=== PATIENT | female | born 1955 | race Caucasian/White ===

== ENCOUNTER → 2017-11-28 15:05 | Outpatient (POV) | payer MEDICARE, SELFPAY ==
[2017-11-28 17:33] LABS: Ferritin 101 ng/mL (8-388)
[2017-11-30 08:23] LABS: Alpha-1-Antitrypsin 119 mg/dL (90-200); Hep A Ab, IgM Negative (Negative); Hep B Core Ab, Total Negative (Negative); Hepatitis B Core Antibody IgM Negative (Negative); Hepatitis B Surface Antigen Negative (Negative); Immunoglobulin A, Qn 465 mg/dL (87-352); Immunoglobulin G, Qn 1661 mg/dL (700-1600); Immunoglobulin M, Qn 450 mg/dL (26-217); Iron 142 ug/dL (27-139); Iron Saturation 49 % (15-55); UIBC 145 ug/dL (118-369)
[2017-12-01 06:25] LABS: Actin (Smooth Muscle) Antibody 23 Units (0-19)
[2017-12-01 06:26] LABS: Angiotensin Converting Enzyme 63 U/L (14-82); Deamidated Gliadin Abs, IgA 7 units (0-19); Deamidated Gliadin Abs, IgG 2 units (0-19); Endomysial IgA Antibody Negative (Negative); Hep A Ab, Total Positive (Negative); Hep B Surface Ab, Qual Non Reactive (.); Hepatitis C Antibody <0.1 s/co ratio (0.0-0.9); Liver-Kidney Microsomal Ab <1.0 Units (0.0-20.0); Tissue Transglutaminase IgA Ab <2 U/mL (0-3); Tissue Transglutaminase IgG Ab 2 U/mL (0-5)
[2017-12-01 15:24] LABS: Phenotype (PI) MZ (.)
[2017-12-02 06:28] LABS: Antinuclear Antibodies, IFA Negative (.)
[2017-12-02 10:27] LABS: Reticulin IgA Antibody Negative titer (Neg:<1:2.5)
[2017-12-13 06:04] LABS: Mitochondrial (M2) Antibody <20.0 Units (0.0-20.0)
== END ==
PROVIDERS: Visit Provider Nurse Practitioner Acute Care
DX: R94.5 Abnormal results of liver function studies (principal); R79.0 Abnormal level of blood mineral
CPT/HCPCS: 36415; 80074; 82104; 82164; 82728; 82784; 83516; 83550; 86038; 86255; 86256; 86376; 86704; 86706; 86708

== ENCOUNTER → 2018-01-16 11:29 | Outpatient (POV) | payer MEDICARE, SELFPAY | PROVIDERS: Visit Provider Nurse Practitioner Acute Care | DX: Z00.00 Encounter for general adult medical examination without abnormal findings (principal) ==

== ENCOUNTER → 2018-02-28 11:57 | Outpatient (CLI) | payer MEDICARE, SELFPAY ==
[2018-02-28 13:53] LABS: Basophils % 0.2 % (0.1-2.0); Eosinophils # 0.2 K/mm3 (0.0-0.4); Eosinophils % 2.5 % (0.1-12.0); Hemoglobin 13.5 g/dL (12.2-16.2); Lymphocytes # 1.2 K/mm3 (0.7-4.5); Mean Corpuscular Hemoglobin 32.4 pg (27.0-31.2); Mean Corpuscular Volume 101.3 fl (81-99); Mean Platelet Volume 10.2 fl (7.4-10.4); Monocytes # 0.8 K/mm3 (0.1-1.0); Monocytes % 8.5 % (1.7-9.3); Neutrophils % 75.8 % (37.0-80.0); Platelet Count 54 K/mm3 (142-424); Red Blood Count 4.15 M/mm3 (4.20-5.40); Red Cell Distribution Width 16.2 % (11.5-17.5); White Blood Count 9.2 K/mm3 (4.8-10.8)
== END ==
PROVIDERS: PCP Family Medicine; Visit Provider Family Medicine
DX: D69.6 Thrombocytopenia, unspecified (principal)
CPT/HCPCS: 36415; 85025

== ENCOUNTER → 2018-03-06 11:04 | Outpatient (CLI) | payer MEDICARE, SELFPAY ==
[2018-03-06 11:29] LABS: Basophils # 0.1 K/mm3 (0-0.2); Basophils % 0.8 % (0.1-2.0); Eosinophils # 0.3 K/mm3 (0.0-0.4); Eosinophils % 4.3 % (0.1-12.0); Hematocrit 43.1 % (37.0-47.0); Hemoglobin 13.7 g/dL (12.2-16.2); Lymphocytes # 1.9 K/mm3 (0.7-4.5); Lymphocytes % 29.9 K/mm3 (10-50); Mean Corpuscular HGB Conc 31.7 g/dL (31.8-35.4); Mean Corpuscular Hemoglobin 32.6 pg (27.0-31.2); Mean Corpuscular Volume 102.7 fl (81-99); Mean Platelet Volume 11.6 fl (7.4-10.4); Monocytes # 0.5 K/mm3 (0.1-1.0); Monocytes % 6.9 % (1.7-9.3); Neutrophils # 3.8 K/mm3 (1.8-7.8); Neutrophils % 58.1 % (37.0-80.0); Red Cell Distribution Width 15.9 % (11.5-17.5); White Blood Count 6.5 K/mm3 (4.8-10.8)
[2018-03-06 11:30] LABS: Prothrombin Time 11.3 seconds (9.4-11.8)
[2018-03-06 12:22] LABS: Alanine Aminotransferase 97 U/L (12-78); Albumin Level 3.1 gm/dL (3.4-5.0); Albumin/Globulin Ratio 0.9 (1.1-1.8); Alkaline Phosphatase 168 U/L (46-116); Anion Gap 8.6 mEq/L (5-15); Aspartate Amino Transferase 84 U/L (15-37); Blood Urea Nitrogen 20 mg/dL (7-18); Calcium 8.5 mg/dL (8.5-10.1); Carbon Dioxide 30 mmol/L (21.0-32.0); Chloride 108 mmol/L (98-107); Estimated Glomerular Filt Rate 63 ml/min (>60); GFR (African American) 77 ML/MIN (>60); Globulin 3.6 gm/dl (1.3-3.2); Glucose 127 mg/dL (74-106); Potassium 3.6 mmoL/L (3.5-5.1); Sodium 143 mmol/L (136-145); Total Protein,Serum 6.7 gm/dL (6.4-8.2)
[2018-03-06 12:31] LABS: Platelet Count 36 K/mm3 (142-424)
== END ==
PROVIDERS: PCP Family Medicine; Visit Provider Nurse Practitioner Acute Care
DX: K74.60 Unspecified cirrhosis of liver (principal); R94.5 Abnormal results of liver function studies
CPT/HCPCS: 36415; 80053; 85025; 85610

== ENCOUNTER → 2018-03-16 10:39 | Outpatient (CLI) | payer MEDICARE, SELFPAY ==
[2018-03-16 11:26] LABS: Basophils % 0.3 % (0.1-2.0); Eosinophils # 0.1 K/mm3 (0.0-0.4); Eosinophils % 1.7 % (0.1-12.0); Hematocrit 42.5 % (37.0-47.0); Hemoglobin 13.7 g/dL (12.2-16.2); Lymphocytes # 1.1 K/mm3 (0.7-4.5); Lymphocytes % 16.5 K/mm3 (10-50); Mean Corpuscular HGB Conc 32.2 g/dL (31.8-35.4); Mean Corpuscular Volume 102.6 fl (81-99); Mean Platelet Volume 10.6 fl (7.4-10.4); Monocytes # 0.5 K/mm3 (0.1-1.0); Monocytes % 7.7 % (1.7-9.3); Neutrophils # 4.7 K/mm3 (1.8-7.8); Neutrophils % 73.8 % (37.0-80.0); Red Blood Count 4.14 M/mm3 (4.20-5.40); Red Cell Distribution Width 15.9 % (11.5-17.5); White Blood Count 6.4 K/mm3 (4.8-10.8)
[2018-03-16 13:18] LABS: Alanine Aminotransferase 91 U/L (12-78); Albumin Level 3.2 gm/dL (3.4-5.0); Albumin/Globulin Ratio 0.9 (1.1-1.8); Alkaline Phosphatase 158 U/L (46-116); Anion Gap 13.3 mEq/L (5-15); Aspartate Amino Transferase 74 U/L (15-37); Bilirubin,Total 0.8 mg/dL (0.2-1.0); Blood Urea Nitrogen 13 mg/dL (7-18); Calcium 8.8 mg/dL (8.5-10.1); Carbon Dioxide 26 mmol/L (21.0-32.0); Chloride 111 mmol/L (98-107); Creatinine,Serum 0.85 mg/dL (0.55-1.02); Estimated Glomerular Filt Rate 68 ml/min (>60); GFR (African American) 82 ML/MIN (>60); Globulin 3.6 gm/dl (1.3-3.2); Glucose 102 mg/dL (74-106); Potassium 4.3 mmoL/L (3.5-5.1); Sodium 146 mmol/L (136-145); Total Protein,Serum 6.8 gm/dL (6.4-8.2)
[2018-03-16 14:11] LABS: Platelet Count 49 K/mm3 (142-424)
== END ==
PROVIDERS: PCP Family Medicine; Visit Provider Nurse Practitioner Acute Care
DX: R94.5 Abnormal results of liver function studies (principal)
CPT/HCPCS: 36415; 80053; 85025

== ENCOUNTER → 2018-04-25 07:52 | Outpatient (CLI) | payer MEDICARE, SELFPAY ==
--- NOTE | 2018-04-25 08:00 | US_ITS ---
US liver HISTORY: ITS.REASON: LIVER TRANSPLANT EVALUATION ORDERING PHYSICIAN: Dane Baker PATIENT AGE: 62 years COMPARISON: None FINDINGS: PANCREAS:Pancreas is poorly demonstrated LIVER:There is heterogeneous somewhat increased echogenicity of the liver with poor through transmission of sound. The liver margin is irregular with cirrhosis. No focal liver lesions are demonstrated. There is turbulent blood flow in the region of the portal vein which could represent a recanalized portal vein or collaterals in the region of the portal vein. An enlarged portal vein is not identified. RIGHT KIDNEY:Unremarkable. Normal size and echogenicity. No hydronephrosis GALLBLADDER:No gallstones, gallbladder wall thickening, pericholecystic fluid, or biliary dilatation. IMPRESSION: 1. Cirrhotic appearing liver. 2. Turbulent blood flow within the portal vein which could be due to prior portal vein thrombosis with recanalization or collateral vessels in region of the portal vein.
== END ==
PROVIDERS: PCP Family Medicine; Visit Provider Transplant Surgery
DX: Z94.4 Liver transplant status (principal)
CPT/HCPCS: 76705

== ENCOUNTER → 2018-09-25 08:17 | Outpatient (CLI) | payer MEDICARE, SELFPAY ==
--- NOTE | 2018-09-25 08:26 | US_ITS ---
US abdomen complete HISTORY: ITS.REASON: CIRRHOSIS ORDERING PHYSICIAN: Tyron Bee PATIENT AGE: 62 years COMPARISON: Previous ultrasound abdomen from March [address] abdomen March 2012 FINDINGS: Liver. Cirrhotic appearing liver. Slight increased coarse echogenicity slight decreased through transmission. Slight micronodular character to the margin. No focal mass lesion evident. The portal vein appears normal caliber. Suggestion of slight turbulent flow but not retrograde. Gallbladder. Minimal sludge. No gallstones. Normal wall thickness. Normal size gallbladder. Common duct. A measures up to 4 mm at hilum of the liver. No ductal dilatation Pancreas. Not well delineated. Slight heterogeneous echogenicity but but no discrete focal mass. No pancreatic ductal dilatation evident Kidneys Right kidney measures 10.1 cm in length left kidney 11.1 cm in length. Perhaps minor cortical thinning perhaps bilaterally but no hydronephrosis nor mass in either kidney. Spleen enlarged, generous enlarged. Up to 16 maximum length x 15 cm transverse x 9 cm AP. IMPRESSION 1. Cirrhotic liver again seen similar to March 2018 ultrasound. No focal liver lesions evident Although portal vein not dilated , there does appear to be some turbulent flow, reflecting of portal hypertension with change underlying portal venous flow dynamics.-This seen on previous March 2018 study as well. 2.. Splenomegaly. Spleen measuring 16 cm length.
== END ==
PROVIDERS: PCP Family Medicine; Visit Provider Nurse Practitioner Acute Care
DX: K74.60 Unspecified cirrhosis of liver (principal)
CPT/HCPCS: 76700

== ENCOUNTER → 2019-04-13 16:20 | Outpatient (CLI) | payer MEDICARE, SELFPAY | PROVIDERS: Visit Provider Family Medicine | DX: N39.0 Urinary tract infection, site not specified (principal) | CPT/HCPCS: 87086 ==

== ENCOUNTER → 2019-04-30 08:43 | Outpatient (CLI) | payer MEDICARE, SELFPAY ==
--- NOTE | 2019-04-30 08:55 | US_ITS ---
PROCEDURE: US ABDOMEN LIMITED CLINICAL INDICATION: CCIRRHOSIS COMPARISON: [facility] US abdomen complete from 09/25/2018 FINDINGS: PANCREAS: Pancreas is poorly demonstrated. LIVER: The liver has a cirrhotic appearance. Blood flow in the portal vein appears turbulent. The portal vein does not appear dilated. No focal liver lesions demonstrated. RIGHT KIDNEY: Unremarkable. Normal size and echogenicity. No hydronephrosis GALLBLADDER: No gallstones, gallbladder wall thickening, pericholecystic fluid, or biliary dilatation. IMPRESSION: Overall no change in the cirrhotic appearance of the liver with turbulent flow in the portal vein Dictated by: Edgar Cortés MD 04/30/2019 18:30 Electronically signed by Edgar Cortés MD in [place] 04/30/2019 18:30
== END ==
PROVIDERS: PCP Family Medicine; Visit Provider Family Medicine
DX: K74.69 Other cirrhosis of liver (principal)
CPT/HCPCS: 76705

== ENCOUNTER → 2019-06-22 15:29 | Outpatient (CLI) | payer MEDICARE, SELFPAY ==
--- NOTE | 2019-06-22 15:33 | XR_ITS ---
PROCEDURE: XR CHEST 2V CLINICAL HISTORY: BRONCHITIS COMPARISON: CXR CHEST(2 VIEWS-NOT PORTABLE) from 03/27/2013 FINDINGS: The cardiomediastinal silhouette and pulmonary vascularity are within normal limits. There is a small patchy indistinct density overlying the caudal aspect of the right hilum. This was not clearly present on the prior study. There are strands of increased density on the lateral view which are probably in the right middle lobe. The remainder of the lung abarca are clear without pleural effusion or pneumothorax. No acute bony abnormalities. IMPRESSION: Linear atelectasis or scarring in the right middle lobe. Indistinct density overlying the right hilum. Suggest nonemergent CT chest with intravenous contrast. Dictated by: Rufus Roque 06/22/2019 15:46 Electronically signed by Rufus Roque in [place] 06/22/2019 15:46
== END ==
PROVIDERS: PCP Family Medicine; Visit Provider Physician Assistant
DX: J45.909 Unspecified asthma, uncomplicated (principal)
CPT/HCPCS: 71046

== ENCOUNTER → 2019-10-31 07:56 | Outpatient (CLI) | payer MEDICARE, SELFPAY ==
--- NOTE | 2019-10-31 08:11 | US_ITS ---
PROCEDURE: US ABDOMEN LIMITED CLINICAL INDICATION: CIRRHOSIS Non alcoholic steatohepatitis COMPARISON: US ABDOMEN LIMITED from 04/30/2019 FINDINGS: PANCREAS: Unremarkable. No obvious mass or abnormal fluid collection. No ductal dilatation LIVER: The liver has a cirrhotic appearance with mild prominence of the left hepatic lobe and irregular margins. There is appropriate direction of blood flow within a non dilated portal vein. Portal blood flow is appropriate but is somewhat turbulent within the liver. The portal vein tapers as it enters the hilum of the liver. RIGHT KIDNEY: There is increased echogenicity in the mid aspect of the right kidney which could be due to a stone measuring [address] may confirm. GALLBLADDER: No gallstones, gallbladder wall thickening, pericholecystic fluid, or biliary dilatation. The spleen is enlarged at 16 cm IMPRESSION: 1. Cirrhotic appearing liver. Portal vein tapers within the liver with some turbulent flow and there is splenomegaly consistent with portal hypertension. There is appropriate direction of blood flow within the main portal vein. 2. Possible right nephrolithiasis. Dictated by: Edgar Cortés MD 10/31/2019 19:36 Electronically signed by Edgar Cortés MD in [place] 10/31/2019 19:36
== END ==
PROVIDERS: PCP Family Medicine; Visit Provider Nurse Practitioner Acute Care
DX: K74.60 Unspecified cirrhosis of liver (principal)
CPT/HCPCS: 76705

== ENCOUNTER → 2020-04-25 09:43 | Outpatient (CLI) | payer MEDICARE, SELFPAY ==
--- NOTE | 2020-04-25 09:47 | MM_ITS ---
PROCEDURE: MM DIG SCREENING MAMM BI W/CAD Digital Breast Tomosynthesis Included CLINICAL INDICATION: SCREENING There is no personal or family history of breast cancer. COMPARISON: MG DIGMAMMS MAMMOGRAM SCREEN-FORMULA MIXER N/C from 04/02/2010 MG DMSB DIGITAL MAMM-SCREEN BILATERAL from 05/03/2012 MG DMSB DIG MAMM-SCREEN YUSUF W/CAD from 07/27/2016 TECHNIQUE: Standard CC and MLO images and 3D Tomosynthesis was obtained. R2 CAD reviewed. FINDINGS: Mild diffuse fibroglandular densities are seen in both breasts. There are a couple of benign-appearing calcifications in each breast. There is no suspicious lesion and no suspicious microcalcifications. IMPRESSION: Fibrofatty parenchyma with no suspicious lesions seen BI-RAD Category: 2 Benign Finding(s) FOLLOW-UP: 1YR 1 Year Follow-up (A letter has been sent to the patient regarding results of the study.) Dictated by: Dr. Hiro Cruz MD 04/25/2020 12:59 Dr. Hiro Cruz MD in [place] 04/25/2020 12:59
== END ==
PROVIDERS: PCP Family Medicine; Visit Provider Physician Assistant
DX: Z12.31 Encounter for screening mammogram for malignant neoplasm of breast (principal)
CPT/HCPCS: 77063; 77067

== ENCOUNTER → 2020-06-04 08:44 | Outpatient (CLI) | payer MEDICARE, SELFPAY ==
--- NOTE | 2020-06-04 08:48 | US_ITS ---
PROCEDURE: US LIVER CLINICAL INDICATION: CIRRHOSIS COMPARISON: US US ABDOMEN LIMITED from 04/30/2019 FINDINGS: PANCREAS: Pancreas is not well delineated due to overlying bowel gas. CT or MRI without and with contrast with pancreatic protocol may provide further evaluation if clinically desired. LIVER: There is coarse echogenicity of the liver which has a lobular contour with irregularity of the liver surface suggesting cirrhosis. Common bile duct is normal at 3 mm. The portal vein is not dilated with appropriate direction of blood flow. RIGHT KIDNEY: There is moderate right hydronephrosis GALLBLADDER: No gallstones, gallbladder wall thickening, pericholecystic fluid, or biliary dilatation. IMPRESSION: Cirrhotic appearing liver. Moderate right hydronephrosis Dictated by: Edgar Cortés MD 06/04/2020 19:14 Edgar Cortés MD in [place] 06/04/2020 19:14
== END ==
PROVIDERS: PCP Family Medicine; Visit Provider Nurse Practitioner Acute Care
DX: K74.60 Unspecified cirrhosis of liver (principal)
CPT/HCPCS: 76705

== ENCOUNTER → 2020-07-07 10:14 | Outpatient (CLI) | payer MEDICARE, SELFPAY ==
--- NOTE | 2020-07-07 10:43 | XR_ITS ---
PROCEDURE: XR CHEST PORTABLE CLINICAL HISTORY: COVID TESTING Cough and shortness of breath COMPARISON: CR CXR CHEST(2 VIEWS-NOT PORTABLE) from 03/27/2013 CR XR CHEST 2V from 06/22/2019 FINDINGS: The cardiomediastinal silhouette and pulmonary vascularity are within normal limits. The lungs are clear without infiltrates, suspicious nodules, or pleural effusions. No acute bony abnormalities. IMPRESSION: No acute findings. Dictated by: Edgar Cortés MD 07/07/2020 14:34 Edgar Cortés MD in [place] 07/07/2020 14:34
[2020-07-07 10:54] LABS: Basophils % 0.2 % (0.1-2.0); Eosinophils % 0.1 % (0.1-12.0); Hematocrit 43.7 % (37.0-47.0); Hemoglobin 14.2 g/dL (12.2-16.2); Lymphocytes # 1.2 K/mm3 (0.7-4.5); Mean Corpuscular HGB Conc 32.4 g/dL (31.8-35.4); Mean Corpuscular Hemoglobin 34.3 pg (27.0-31.2); Mean Corpuscular Volume 105.7 fl (81-99); Mean Platelet Volume 8.6 fl (7.4-10.4); Monocytes # 0.5 K/mm3 (0.1-1.0); Monocytes % 8.6 % (1.7-9.3); Neutrophils # 4.5 K/mm3 (1.8-7.8); Platelet Count 130 K/mm3 (142-424); Red Blood Count 4.14 M/mm3 (4.20-5.40); Red Cell Distribution Width 15.7 % (11.5-17.5); White Blood Count 6.3 K/mm3 (4.8-10.8)
[2020-07-07 11:13] LABS: INR 1.23 (0.9-1.1); Prothrombin Time 13.4 seconds (9.4-11.8)
[2020-07-07 12:35] LABS: Chloride 109 mmol/L (98-107); Sodium 139 mmol/L (136-145)
[2020-07-07 12:36] LABS: Potassium 3.4 mmoL/L (3.5-5.1)
[2020-07-07 12:38] LABS: Alanine Aminotransferase 22 U/L (12-78); Albumin Level 3.4 g/dl (3.5-5.0); Albumin/Globulin Ratio 0.9 (1.1-1.8); Alkaline Phosphatase 202 U/L (38-126); Anion Gap 9.4 mEq/L (5-15); Aspartate Amino Transferase 53 U/L (14-36); Bilirubin,Total 2.9 mg/dl (0.2-1.3); Blood Urea Nitrogen 9 mg/dl (7-17); Calcium 8.8 mg/dl (8.4-10.2); Carbon Dioxide 24 mmol/L (22.0-30.0); Estimated Glomerular Filt Rate 72 ml/min (>60); GFR (African American) 87 ML/MIN (>60); Globulin 3.8 g/dL (1.3-3.2); Glucose 102 mg/dl (74-100); Iron 124 ug/dL (37-170); Total Protein,Serum 7.2 g/dl (6.3-8.2)
[2020-07-07 12:48] LABS: Total Iron Binding Capacity 241 ug/dL (265-497)
[2020-07-07 13:14] LABS: Ferritin 103 ng/ml (11.1-264)
[2020-07-09 08:28] LABS: AFP, Tumor Marker 6.7 ng/mL (0.0-8.3)
== END ==
PROVIDERS: Nurse Practitioner Acute Care; PCP Family Medicine; Visit Provider Physician Assistant
DX: Z20.822 Contact with and (suspected) exposure to COVID-19 (principal); U07.1 COVID-19; R93.89 Abnormal findings on diagnostic imaging of other specified body structures; K74.60 Unspecified cirrhosis of liver; K76.0 Fatty (change of) liver, not elsewhere classified
CPT/HCPCS: 36415; 71045; 80053; 82105; 82565; 82728; 83540; 83550; 84520; 85025; 85610; U0003

== ENCOUNTER 2020-07-10 08:22 | Outpatient (CLI) | payer MEDICARE, SELFPAY ==
[2020-07-10] VITALS (9 sets, daily range): BP systolic 94–111; BP diastolic 54–71; PULSE 82–96; RESP 12–18; TEMP 36.6–36.8; O2SAT 94–97
--- NOTE | 2020-07-10 10:05 | PC.NURSE ---
Infusion complete at this time. Pt tolerated well.
== END 2020-07-10 11:14 | disposition home or self-care (01) ==
PROVIDERS: PCP Family Medicine; Visit Provider Family Medicine
DX: U07.1 COVID-19 (principal)
CPT/HCPCS: 96365

== ENCOUNTER → 2020-08-27 14:25 | Outpatient (CLI) | payer MEDICARE, SELFPAY ==
[2020-08-27 18:18] LABS: Coronavirus 19 IgG Antibody Positive (Negative)
[2020-08-27 18:21] LABS: Coronavirus 19 IgM Antibody Positive (Negative)
== END ==
PROVIDERS: Visit Provider Internal Medicine Gastroenterology
DX: Z01.818 Encounter for other preprocedural examination (principal); Z20.822 Contact with and (suspected) exposure to COVID-19; Z86.16 Personal history of COVID-19; Z13.810 Encounter for screening for upper gastrointestinal disorder
CPT/HCPCS: 36415; 86328

== ENCOUNTER 2020-08-29 07:50 | Day surgery (SDC) | payer MEDICARE, SELFPAY ==
[2020-08-21 09:45] VITALS: BMI 30.1
[2020-08-29] VITALS (8 sets, daily range): BP systolic 111–126; BP diastolic 65–73; PULSE 75–90; RESP 18; TEMP 36.2–36.9; O2SAT 95–98
--- NOTE | 2020-08-29 08:36 | P.PN_ITS ---
[facility] Anesthesia Checklist - Patient Identification Patient Identification: Verbal (Name & ) - Structural Data Planned Operative Procedure/s: egd Consent for Planned Operative Procedure(s) Verified: Yes Verified Documents: Surgical Consent - Additional verifications Anesthesia Reactions: No - Cardiovascular Assessment Heart Sounds: S1 & S2 Pulse Rhythm: Regular - Airway Assessment C-Spine Mobility Assessed: Yes TMJ Mobility Assessed: Yes Dentition: Good Dentition - Neurological Assessment Level of Consciousness: Awake - Anesthesia Plan Anesthesia Risk discussed: Yes ASA Class: II Anesthesia Type: MAC [facility] History I have reviewed the patient's past medical history: Yes Medical History: Reports:: Depression, Hyperlipidemia, Lung Disease (ASTHMA) Denies:: Cancer, Diabetes Mellitus Type 1, Diabetes Mellitus Type 2, Internal Pacemaker, MRSA, Seizures *Have you ever received a pneumonia vaccine?: Yes *Have you received a flu vaccine this season?: Yes Other Medical History: Reports: Other (cirrhosis) Anesthesia experience/problems:: none Laterality Cases: Left: Arthroscopy Shoulder Other Surgeries: Yes: Hysterectomy-Total, Sinus Surgery. No: Pacemaker Amputation: No Fractures: No - *Social History Last grade of school completed: 11th or 12th Smoking Status: Never smoker Alcohol Intake: never Substance Use Type: denies use *Occupational Status:: disabled Housing: house Household Members: none *Travel in the last 8 weeks: None - Psychiatric History Pschychiatric History:: Reports:: Depression Family Hx:: No significant family history
--- NOTE | 2020-08-29 08:48 | HMH.PROC ---
[facility] Procedure Note Procedure Note:: Upper Endoscopy Procedure Report: Esophagogastroduodenoscopy with cold biopsies and APC ablation/coagulation Endoscopost: Sunday De Jesus II, MD Referring Physician: Iftikhar Aguirre MD/GORGE Arana Date of Procedure: August 29, 2020 Equipment: Olympus GIF 180 standard upper endoscope Sedation: MAC sedation Indications: Mrs. Mackay is a 64-year-old female with a history of Villalobos and cirrhosis. The patient had an EGD in January 2018 and again in February 2019 for her cirrhosis. She does have very small fundic varices in the stomach and very small grade 0?1 esophageal varices but no significant signs of portal hypertension and no portal gastropathy or GAVE. The patient reports no heartburn, reflux or dysphagia. She reports no hematemesis or melena. She has had no increased abdominal girth. Her MELD score has been stable. I do not have the results of any recent blood work. Procedure: Prior to the procedure, a history and physical exam was performed, and patient's medications and allergies were reviewed. The risks, benefits and alternatives of the sedation and procedure were discussed with the patient. All questions were answered and informed consent was obtained. The patient was brought to the procedure room. Patient identification and proposed procedure were verified by the physician and the nurse. The patient was placed in a left lateral decubitus position and the scope was passed under direct vision. Throughout the procedure, the patient's blood pressure, pulse, and oxygen saturations were monitored continuously. The upper GI endoscopy was accomplished without difficulty. The patient tolerated the procedure well. Findings: The scope was passed directly into the upper esophagus and advanced to the third portion of the duodenum. The post bulbar duodenum was normal with normal mucosa and conniventes. Within the duodenal bulb were some duodenal angiodysplasias/AVMs with some oozing of bright red blood. These were washed. Because of their active oozing, these were ablated/coagulated using APC (argon plasma) coagulation. The scope was withdrawn through a normal pylorus into the stomach. There was some mild reactive gastropathy of the antrum and body. The remainder of the antrum, body and fundus of the stomach were grossly normal. Upon retroflexion there was a single gastric varix in the fundus and a very small sliding 1 to 2 cm hiatal hernia. The scope was then withdrawn into the esophagus. There was 2 short tongues of salmon-colored mucosa that were biopsied to rule out intestinal metaplasia. There were very small grade 0-1 esophageal varices. There was no evidence of reflux esophagitis or strictures. The remainder of the esophageal mucosa was normal. Impression: 1. Very small grade 1 esophageal varices and small fundic varix (gastric varix) 2. 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 Duodenal angiodysplasias/AVMs with some active heme of duodenal bulb status post APC ablation 4. Mild reactive gastropathy of antrum Plan: There were no significant changes towards portal hypertension and no portal gastropathy. The patient's hepatic compensation is stable and has a stable MELD score. I would like for her to have hemoglobin/hematocrit and iron studies based upon the heme identified in the duodenal bulb. I will discuss the findings with patient and family and follow-up the biopsies.
--- NOTE | 2020-08-29 09:23 | SUR.PHASEII ---
ORDERS REC'D TO PERFORM FERRITIN AND IRON, TIBC BLOOD WORK PER DR NUNO. LAB NOTIFIED AND PT NOTIFIED, VERBALIZED UNDERSTANDING.
[2020-08-29 09:47] LABS: Iron 93 ug/dL (37-170)
[2020-08-29 10:01] LABS: Total Iron Binding Capacity 228 ug/dL (265-497)
[2020-08-29 10:30] LABS: Ferritin 86.8 ng/ml (11.1-264)
== END 2020-08-29 09:59 | disposition home or self-care (01) ==
PROVIDERS: PCP Family Medicine; Visit Provider Internal Medicine Gastroenterology
PROC: 0DJ08ZZ Inspection of Upper Intestinal Tract, Via Natural or Artificial Opening Endoscopic (ICD-10-PCS; CPT 43235; principal; 2020-08-29 09:00)
DX: I86.4 Gastric varices (principal); K74.60 Unspecified cirrhosis of liver; I85.00 Esophageal varices without bleeding; K21.9 Gastro-esophageal reflux disease without esophagitis; K22.9 Disease of esophagus, unspecified; K44.9 Diaphragmatic hernia without obstruction or gangrene; K31.9 Disease of stomach and duodenum, unspecified; K55.21 Angiodysplasia of colon with hemorrhage; K75.81 Nonalcoholic steatohepatitis (NASH); I10 Essential (primary) hypertension; J45.909 Unspecified asthma, uncomplicated; F32.9 Major depressive disorder, single episode, unspecified
CPT/HCPCS: 43239; 43270; 36415; 82728; 83540; 83550; 88305; C2618

== ENCOUNTER → 2020-09-03 13:46 | Outpatient (CLI) | payer MEDICARE, SELFPAY ==
--- NOTE | 2020-09-03 13:55 | CT_ITS ---
PROCEDURE: CT ABDOMEN PELVIS WO CON CLINICAL INDICATION: HYDRONEPHROSIS Right sided hydronephrosis, abnormal ultrasound COMPARISON: No exams were available for comparison TECHNIQUE: Axial images obtained with sagittal and coronal reformats. All CT scans at the facility use one or more dose reduction, viz: automated exposure control, ma/kV adjustment per patient size (including targeted exams where dose is matched to indication, i.e. head), or iterative reconstruction technique. FINDINGS: LOWER THORAX: No acute finding ABDOMEN & PELVIS: Cirrhotic appearance of the liver with heterogeneous density, shrunken appearing liver with irregular margins. No focal liver lesion evident on this unenhanced exam. The spleen is enlarged at 16 cm with prominent perisplenic varices. Nga renal varices noted on the left.. Lobular soft tissue density in the suprarenal region on the left measuring 3.5 cm and may represent a large varix. Enhanced CT may confirm. Cannot exclude adrenal enlargement on the left. Right adrenal gland has an unremarkable appearance . Small gallstone is present. There is some minimal calcification in the uncinate process of the pancreas. There is moderate to severe right hydronephrosis secondary to a 12 mm stone at the right ureteropelvic junction. At least 2 other small stones are present on the right in the lower pole at 2 and 3 mm. No evidence of appendicitis or diverticulitis. There is mild lumbar curvature convex left. Degenerative changes are present in the lumbar spine. IMPRESSION: 1. 12 mm right ureteropelvic junction stone with moderate to severe right-sided hydronephrosis and right nephrolithiasis 2. Cirrhotic appearance of the liver with splenomegaly and extensive abdominal and retroperitoneal varices consistent with portal hypertension. 3. Cholelithiasis. 4. Punctate calcification in the head of the pancreas which may be seen with prior pancreatitis Dictated by: Edgar Cortés MD 09/04/2020 10:24 Edgar Cortés MD in [place] 09/04/2020 10:24
== END ==
PROVIDERS: PCP Family Medicine; Visit Provider Family Medicine
DX: N13.30 Unspecified hydronephrosis (principal)
CPT/HCPCS: 74176

== ENCOUNTER → 2020-09-11 10:24 | Outpatient (CLI) | payer MEDICARE, SELFPAY ==
[2020-09-11 11:38] LABS: INR 1.11 (0.9-1.1)
[2020-09-11 11:39] LABS: Activated Partial Thrombo Time 28.7 seconds (22.8-30.6)
[2020-09-11 12:56] LABS: Coronavirus 19 IgG Antibody Positive (Negative)
[2020-09-11 12:57] LABS: Coronavirus 19 IgM Antibody Positive (Negative)
== END ==
PROVIDERS: Family Medicine; Visit Provider Urology
DX: N20.0 Calculus of kidney (principal); Z01.818 Encounter for other preprocedural examination; Z20.822 Contact with and (suspected) exposure to COVID-19; Z86.16 Personal history of COVID-19; R71.8 Other abnormality of red blood cells; Z51.81 Encounter for therapeutic drug level monitoring
CPT/HCPCS: 36415; 85610; 85730; 86328

== ENCOUNTER 2020-09-12 10:32 | Day surgery (SDC) | payer MEDICARE, SELFPAY ==
[2020-09-09 14:33] VITALS: BMI 27.6
[2020-09-12] VITALS (10 sets, daily range): BP systolic 103–121; BP diastolic 56–78; PULSE 56–70; RESP 11–18; TEMP 36.2–36.6; O2SAT 92–97
[2020-09-12 08:03] LABS: Basophils % 0.6 % (0.1-2.0); Eosinophils % 0.6 % (0.1-12.0); Hematocrit 39.5 % (37.0-47.0); Hemoglobin 12.3 g/dL (12.2-16.2); Lymphocytes # 1.4 K/mm3 (0.7-4.5); Lymphocytes % 24.1 % (10-50); Mean Corpuscular HGB Conc 31.2 g/dL (31.8-35.4); Mean Corpuscular Hemoglobin 33.7 pg (27.0-31.2); Mean Platelet Volume 8.8 fl (7.4-10.4); Monocytes # 0.6 K/mm3 (0.1-1.0); Monocytes % 9.3 % (1.7-9.3); Neutrophils # 3.9 K/mm3 (1.8-7.8); Neutrophils % 65.5 % (37.0-80.0); Platelet Count 143 K/mm3 (142-424); Red Blood Count 3.66 M/mm3 (4.20-5.40); Red Cell Distribution Width 15.4 % (11.5-17.5); White Blood Count 5.9 K/mm3 (4.8-10.8)
[2020-09-12 11:22] LABS: Chloride 116 mmol/L (98-107); Potassium 4.1 mmoL/L (3.5-5.1); Sodium 145 mmol/L (136-145)
[2020-09-12 11:25] LABS: Anion Gap 8.1 mEq/L (5-15); Blood Urea Nitrogen 11 mg/dl (7-17); Carbon Dioxide 25 mmol/L (22.0-30.0); Creatinine Clearance Estimated 63 mL/min (50-200); Estimated Glomerular Filt Rate 56 ml/min (>60); GFR (African American) 68 ML/MIN (>60); Glucose 97 mg/dl (74-100)
--- NOTE | 2020-09-12 12:42 | P.PN_ITS ---
[facility] Anesthesia Checklist - Patient Identification Patient Identification: Arm Band - Structural Data Admitted From: Home Planned Operative Procedure/s: Cystoscopy Consent for Planned Operative Procedure(s) Verified: Yes - Additional verifications Anesthesia Reactions: No Hx Blood Transfusions: No Blood Transfusion Reaction: No - Airway Assessment C-Spine Mobility Assessed: Yes TMJ Mobility Assessed: Yes Dentition: Good Dentition - Neurological Assessment Level of Consciousness: Awake Hx Seizures: No Numbness or tingling in extremities: No - Anesthesia Plan Anesthesia Risk discussed: Yes Anesthesia Plan: Verified ASA Class: III Anesthesia Type: General [facility] History I have reviewed the patient's past medical history: Yes Medical History: Reports:: Asthma, Depression, Hyperlipidemia, Lung Disease Denies:: Cancer, Diabetes Mellitus Type 1, Diabetes Mellitus Type 2, Internal Pacemaker, MRSA, Seizures *Have you ever received a pneumonia vaccine?: Yes *Have you received a flu vaccine this season?: Yes Other Medical History: Reports: Arthritis, Cataracts, Sinus Problems, Thyroid Disease, Other. Denies: Blood Transfusion Reaction Anesthesia experience/problems:: None Laterality Cases: Left: Arthroscopy Shoulder Other Surgeries: Yes: No Previous Surgery, Colonoscopy, Hernia Repair, Hysterectomy-Total, Hysterectomy-Partial, Sinus Surgery. No: Pacemaker Amputation: No Fractures: No - *Social History Last grade of school completed: High school graduate Smoking Status: Never smoker Alcohol Intake: never Substance Use Type: denies use *Occupational Status:: retired Housing: house Household Members: none *Travel in the last 8 weeks: None - Psychiatric History Pschychiatric History:: Reports:: Depression Family Hx:: Stroke
--- NOTE | 2020-09-12 12:55 | P.PN_ITS ---
[facility] Anesthesia Record Part I Intake, IV Amount: 700 Estimated blood loss (mL): 0 Urine output (mL): 0 Blood Pressure: 103/56 SaO2: 93 Pulse Rate: 64 Respiratory Rate: 11 Temperature: 97.2 F Patient is:: Drowsy Stable to PACU at:: 12:53
--- NOTE | 2020-09-12 14:12 | XR_ITS ---
PROCEDURE: XR KUB CLINICAL INDICATION: CYSTO WITH STENT PLACEMENT IN OR COMPARISON: CT CT ABDOMEN PELVIS WO CON from 09/03/2020 FINDINGS: Fluoroscopy time: 1 minutes and 20 seconds. C-arm images submitted demonstrating right ureteral stent placement with the proximal aspect curved in the right upper quadrant and the distal aspect in the region of the urinary bladder. IMPRESSION: Status post stent placement on the right with C-arm guidance Dictated by: Edgar Cortés MD 09/12/2020 15:42 Edgar Cortés MD in [place] 09/12/2020 15:42
--- NOTE | 2020-09-12 15:28 | P.PN_ITS ---
[facility] Anesthesia Record Part II Discharge Time: 13:19 Destination: Surgical Day Care (OP Surgery) PACU nurse assessment reviewed?: Yes Patient Condition:: Good Anesthesia Complications:: None Swallowing reflex intact?: Yes Cyanosis?: No Blood Pressure: 104/66 Pulse Rate: 63 Temperature: 97.5 F Mental Status: Alert & Oriented Pain level:: 0 Nausea and/or vomitting:: None Intake, IV Amount: 0
--- NOTE | 2020-09-12 16:48 | P.OP_ITS ---
Date of procedure: 09/12/20 Pre-op Diagnosis:: Right UPJ stone, 12 mm Post-op Diagnosis:: Same Procedure performed:: Cystoscopy with right stone manipulation and right stent placement Surgeon:: Sebastien Jerome MD BEVERAGE DISTILLER:: Other (tana erickson) Anesthesia: LMA Estimated blood loss (mL): 0 Clinical Note:: Patient is a 64-year-old white female with a 12 mm stone at the right UPJ. Fortunately she has been asymptomatic and presents for right stent placement today. Operative findings:: Stone at the right UPJ. We were able to move it more proximally and a stent was placed. There is no evidence of pyelonephrosis. Operative note:: Patient taken to the operating room after informed consent was obtained. Placed on the operating table in the supine position and general anesthesia administered. Preoperative antibiotics and sequential compression devices placed. She was then placed into the dorsal lithotomy position and prepped draped in standard surgical fashion. A 22 Joce passed into the urethra and the bladder examined in a systematic fashion. There is no evidence of mucosal normalities, stones, trabeculation. The ureteral orifices in the normal anatomic position. A ureteral catheter was passed into the right ureteral orifice and up to the level of the stone. Under fluoroscopy we were able to manipulate the stone more proximally and the guidewire then passed through the ureteral catheter and the ureteral cath removed. A 6 x 24 Kinyarwanda stent was then passed over the guidewire and the guidewire removed. A good curl was noted proximally and distally. Examination of the urine from the stent noted no evidence of pus or debris. The string was removed. Patient tolerated procedure well there are no complications. Condition: stable Disposition: PACU Specimens:: None Complications:: None
== END 2020-09-12 13:55 | disposition home or self-care (01) ==
LOC: OR 10:33
PROVIDERS: PCP Family Medicine; Visit Provider Urology
PROC: (CPT 52330; principal; 2020-09-12 12:15)
DX: N20.0 Calculus of kidney (principal); J45.909 Unspecified asthma, uncomplicated; F32.9 Major depressive disorder, single episode, unspecified; E78.5 Hyperlipidemia, unspecified; M19.90 Unspecified osteoarthritis, unspecified site; Z87.39 Personal history of other diseases of the musculoskeletal system and connective tissue; Z88.0 Allergy status to penicillin; Z88.2 Allergy status to sulfonamides; Z79.899 Other long term (current) drug therapy; Z82.3 Family history of stroke
CPT/HCPCS: 52330; 74018; 76000; 80048; 85025; 96374; C2617

== ENCOUNTER → 2020-10-01 09:48 | Outpatient (CLI) | payer MEDICARE, SELFPAY ==
[2020-10-01 11:01] LABS: Coronavirus 19 IgG Antibody Positive (Negative)
[2020-10-01 11:02] LABS: Coronavirus 19 IgM Antibody Positive (Negative)
== END ==
PROVIDERS: Visit Provider Urology
DX: N20.0 Calculus of kidney (principal); Z01.812 Encounter for preprocedural laboratory examination; Z20.822 Contact with and (suspected) exposure to COVID-19
CPT/HCPCS: 36415; 86328

== ENCOUNTER 2020-10-03 11:33 | Day surgery (SDC) | payer MEDICARE, SELFPAY ==
[2020-09-30 11:43] VITALS: BMI 27.6
[2020-10-03] VITALS (9 sets, daily range): BP systolic 102–113; BP diastolic 60–69; PULSE 63–71; RESP 16–18; TEMP 36.2–36.9; O2SAT 95–98
--- NOTE | 2020-10-03 11:45 | XR_ITS ---
PROCEDURE: XR KUB CLINICAL INDICATION: ureteral stone COMPARISON: CT CT ABDOMEN PELVIS WO CON from 09/03/2020 FINDINGS: There is a 15 mm stone in the right UPJ. Right ureteral stent is in place in satisfactory position. Mild lumbar scoliosis convex left. Left upper quadrant calcification which may be due to splenic artery calcification as seen on prior CT. Right upper quadrant calcification medially consistent with pancreatic calcification. IMPRESSION: Right ureteral stent in place with 15 mm right ureteropelvic junction stone Dictated by: Edgar Cortés MD 10/03/2020 12:52 Edgar Cortés MD in [place] 10/03/2020 12:52
[2020-10-03 12:44] LABS: Basophils % 0.3 % (0.1-2.0); Eosinophils % 0.1 % (0.1-12.0); Hematocrit 39.8 % (37.0-47.0); Hemoglobin 12.9 g/dL (12.2-16.2); Lymphocytes # 1.7 K/mm3 (0.7-4.5); Lymphocytes % 31.2 % (10-50); Mean Corpuscular HGB Conc 32.3 g/dL (31.8-35.4); Mean Corpuscular Hemoglobin 33.4 pg (27.0-31.2); Mean Corpuscular Volume 103.4 fl (81-99); Monocytes # 0.5 K/mm3 (0.1-1.0); Monocytes % 9.2 % (1.7-9.3); Neutrophils # 3.1 K/mm3 (1.8-7.8); Neutrophils % 59.2 % (37.0-80.0); Platelet Count 114 K/mm3 (142-424); Red Blood Count 3.85 M/mm3 (4.20-5.40); Red Cell Distribution Width 15.9 % (11.5-17.5); White Blood Count 5.3 K/mm3 (4.8-10.8)
[2020-10-03 13:00] LABS: Chloride 113 mmol/L (98-107); Potassium 4.1 mmoL/L (3.5-5.1); Sodium 141 mmol/L (136-145)
--- NOTE | 2020-10-03 13:01 | HMH.ANESCL ---
[facility] Anesthesia Checklist - Patient Identification Patient Identification: Arm Band - Structural Data Admitted From: Home Planned Operative Procedure/s: Right ESWL Consent for Planned Operative Procedure(s) Verified: Yes Verified Documents: Surgical Consent, History and Physical - NPO Status Verified Time NPO: 00:00 - Additional verifications Anesthesia Reactions: No Hx Blood Transfusions: No Blood Transfusion Reaction: No - Airway Assessment C-Spine Mobility Assessed: Yes (mp2) TMJ Mobility Assessed: Yes Dentition: Good Dentition - Neurological Assessment Level of Consciousness: Awake, Alert - Anesthesia Plan Anesthesia Risk discussed: Yes Anesthesia Plan: Verified ASA Class: III Anesthesia Type: General [facility] History Medical History: Reports:: Asthma, Depression, Hyperlipidemia, Lung Disease Denies:: Cancer, Diabetes Mellitus Type 1, Diabetes Mellitus Type 2, Internal Pacemaker, MRSA, Seizures *Have you ever received a pneumonia vaccine?: Yes *Have you received a flu vaccine this season?: Yes Other Medical History: Reports: Arthritis, Cataracts, Sinus Problems, Thyroid Disease, Other (cirrhosis). Denies: Blood Transfusion Reaction Anesthesia experience/problems:: nac Laterality Cases: Left: Arthroscopy Shoulder Other Surgeries: Yes: Colonoscopy, Hernia Repair, Hysterectomy-Total, Hysterectomy-Partial, Sinus Surgery. No: Pacemaker Amputation: No Fractures: No - *Social History Last grade of school completed: 11th or 12th Smoking Status: Never smoker Alcohol Intake: never Substance Use Type: denies use *Occupational Status:: unemployed, disabled Housing: house Household Members: none *Travel in the last 8 weeks: None - Psychiatric History Pschychiatric History:: Reports:: Depression Family Hx:: Stroke
[2020-10-03 13:03] LABS: Anion Gap 8.1 mEq/L (5-15); Blood Urea Nitrogen 10 mg/dl (7-17); Calcium 9.1 mg/dl (8.4-10.2); Carbon Dioxide 24 mmol/L (22.0-30.0); Creatinine Clearance Estimated 63 mL/min (50-200); Estimated Glomerular Filt Rate 72 ml/min (>60); GFR (African American) 87 ML/MIN (>60); Glucose 98 mg/dl (74-100)
--- NOTE | 2020-10-03 13:36 | P.PN_ITS ---
[facility] Anesthesia Record Part I Intake, IV Amount: 900 Estimated blood loss (mL): 0 Urine output (mL): 0 Blood Pressure: 109/62 SaO2: 96 Pulse Rate: 70 Respiratory Rate: 16 Temperature: 97.2 F Patient is:: Drowsy, Stable Stable to PACU at:: 13:30
--- NOTE | 2020-10-03 13:38 | P.OP_ITS ---
Date of procedure: 10/03/20 Pre-op Diagnosis:: 12 mm right UPJ stone Post-op Diagnosis:: Same Procedure performed:: Right ESWL Surgeon:: Sebastien Jerome MD LIAISON INSPECTION LABORATORY ASSISTANT:: Edgardo Morse Anesthesia: GETA Estimated blood loss (mL): 0 Clinical Note:: Patient is a 64-year-old white female status post previous right stone manipulation and a right renal stent placement for a 12 mm right proximal ureteral stone. She returns today for right ESWL. Operative findings:: Imaging reveals the stone appears to be at the right proximal ureter. The stent is in good position. ESWL was performed without complication. Operative note:: Patient taken to the operating room after informed consent was obtained. She was placed on the operating table in the supine position and general anesthesia administered. Preoperative antibiotics and sequential compression devices placed. She was padded in appropriate fashion and the saline bag was placed under the right flank. The lithotripter was then brought into the appropriate position and the stone was placed at F2 of the lithotripter. A total of 4000 shockwaves were delivered to the stone as it was in the UPJ as well as the proximal ureter and it did not spread out as it would in the renal pelvis. Maximum energy of 9 was given. Patient tolerated the procedure well there are no complications. She was discharged to the recovery in stable condition. Condition: stable Disposition: same day Specimens:: None Complications:: None
--- NOTE | 2020-10-04 10:34 | HMH.ANESII ---
[facility] Anesthesia Record Part II Discharge Time: 13:59 Destination: Surgical Day Care (OP Surgery) PACU nurse assessment reviewed?: Yes Patient Condition:: Good Anesthesia Complications:: None Swallowing reflex intact?: Yes Cyanosis?: No Blood Pressure: 102/65 Pulse Rate: 65 Temperature: 97.3 F Mental Status: Alert & Oriented Pain level:: 0 Nausea and/or vomitting:: None Intake, IV Amount: 0
[2020-10-04 10:35] VITALS: BP 102/65; PULSE 65; TEMP 36.3
== END 2020-10-03 15:00 | disposition home or self-care (01) ==
LOC: OR 11:35
PROVIDERS: PCP Family Medicine; Visit Provider Urology
PROC: (CPT 50590; principal; 2020-10-03 13:15)
DX: N20.1 Calculus of ureter (principal); J45.909 Unspecified asthma, uncomplicated; F32.9 Major depressive disorder, single episode, unspecified; E78.5 Hyperlipidemia, unspecified; J98.4 Other disorders of lung; M19.90 Unspecified osteoarthritis, unspecified site; E07.9 Disorder of thyroid, unspecified; K74.60 Unspecified cirrhosis of liver; Z86.14 Personal history of Methicillin resistant Staphylococcus aureus infection; R56.9 Unspecified convulsions; Z87.39 Personal history of other diseases of the musculoskeletal system and connective tissue; Z82.3 Family history of stroke
CPT/HCPCS: 50590; 74018; 80048; 85025; 96374; J2405

== ENCOUNTER → 2020-10-10 14:03 | Outpatient (CLI) | payer MEDICARE, SELFPAY ==
--- NOTE | 2020-10-10 14:08 | XR_ITS ---
PROCEDURE: XR KUB CLINICAL INDICATION: kidney stone COMPARISON: CT CT ABDOMEN PELVIS WO CON from 09/03/2020 CR XR KUB from 09/12/2020 CR XR KUB from 10/03/2020 FINDINGS: Right ureteral stent remains in place. 15 mm stone overlies the medial aspect of the right stent unchanged. Distal aspect of the right ureteral stent is in the region of the urinary bladder. IMPRESSION: No change right ureteral stent with adjacent 15 mm stone proximally Dictated by: Edgar Cortés MD 10/10/2020 17:40 Edgar Cortés MD in [place] 10/10/2020 17:40
== END ==
PROVIDERS: PCP Family Medicine; Visit Provider Urology
DX: N20.0 Calculus of kidney (principal)
CPT/HCPCS: 74018

== ENCOUNTER → 2020-10-10 15:43 | Outpatient (CLI) | payer MEDICARE, SELFPAY ==
[2020-10-10 17:07] LABS: Coronavirus 19 IgG Antibody Positive (Negative); Coronavirus 19 IgM Antibody Positive (Negative)
--- NOTE | 2020-10-10 17:10 | PC.NURSE ---
Notified Summer in Surgery that the pt IgG and IgM were both positive. Per Summer pt needs to have Covid Swab prior to procedure on Tuesday. PT was contacted by myself at 1710 and notified that she needed to come to [facility] this weekend/prior to Tuesday and have swab performed. Order will be at ER Registration.
== END ==
PROVIDERS: Visit Provider Urology
DX: N20.0 Calculus of kidney (principal); N20.1 Calculus of ureter; Z01.812 Encounter for preprocedural laboratory examination; Z20.822 Contact with and (suspected) exposure to COVID-19
CPT/HCPCS: 36415; 74018; 86328; 87086; 87088; 87186

== ENCOUNTER → 2020-10-11 09:57 | Outpatient (CLI) | payer MEDICARE, SELFPAY | PROVIDERS: PCP Family Medicine; Visit Provider Urology | DX: Z01.818 Encounter for other preprocedural examination (principal); Z11.52 Encounter for screening for COVID-19; N20.1 Calculus of ureter | CPT/HCPCS: U0003 ==

== ENCOUNTER 2020-10-13 13:06 | Day surgery (SDC) | payer MEDICARE, SELFPAY ==
[2020-10-13 13:46] VITALS: BP 117/72; PULSE 71; RESP 18; TEMP 37.3; O2SAT 98; BMI 26.9
[2020-10-13 15:24] VITALS: BP 113/74; PULSE 70; RESP 16; TEMP 37.2; O2SAT 98
--- NOTE | 2020-10-13 17:15 | P.OP_ITS ---
Date of procedure: 10/13/20 Pre-op Diagnosis:: History of large left ureteral stone status post left ESWL with prior stent placement Post-op Diagnosis:: Same Procedure performed:: Cystoscopy with right stent removal Surgeon:: Sebastien Jerome MD Anesthesia: local Estimated blood loss (mL): 0 Clinical Note:: Patient is a 65-year-old white female with prior stent placement followed by right ESWL of a large proximal ureteral stone. She follows up today for right stent removal. Recent KUB reveals that the stone is about half the size as it was before and appears fragmented. Hopefully the rest the stones will pass once the stent is removed. Operative findings:: Stent noted from the right ureteral orifice. It was removed without difficulty. Operative note:: Patient taken to the cystoscopy suite after informed consent was obtained. On the stretcher she was placed into the frog-leg position and prepped draped in th e standard surgical fashion. 2% lidocaine placed into the urethra after 5 minutes the flexible cystoscope introduced into the urethral meatus and passed into the bladder without difficulty. Stent was noted from the right ureteral orifice and flexible graspers passed through the scope and the stent grasped and removed without difficulty. Patient tolerated the procedure well there are no complications. She has been having some hematuria since the stent was placed and no evidence of any abnormalities in her bladder today. Hopefully the hematuria will improve with stent removal. Condition: stable Disposition: same day Specimens:: Ureteral stent Complications:: None
== END 2020-10-13 15:39 | disposition home or self-care (01) ==
LOC: OUTP 13:07
PROVIDERS: PCP Family Medicine; Visit Provider Urology
PROC: (CPT 52310; principal; 2020-10-13 13:00)
DX: N20.1 Calculus of ureter (principal); R31.9 Hematuria, unspecified; Z88.0 Allergy status to penicillin; Z88.2 Allergy status to sulfonamides; Z79.899 Other long term (current) drug therapy; J45.909 Unspecified asthma, uncomplicated; F32.9 Major depressive disorder, single episode, unspecified; E10.9 Type 1 diabetes mellitus without complications; E78.5 Hyperlipidemia, unspecified; J98.4 Other disorders of lung; Z87.39 Personal history of other diseases of the musculoskeletal system and connective tissue
CPT/HCPCS: 52310

== ENCOUNTER → 2020-11-03 10:10 | Outpatient (CLI) | payer MEDICARE, SELFPAY ==
[2020-11-03 10:50] LABS: Basophils % 0.2 % (0.1-2.0); Eosinophils % 0.1 % (0.1-12.0); Hematocrit 37.7 % (37.0-47.0); Hemoglobin 12.3 g/dL (12.2-16.2); Lymphocytes # 2.2 K/mm3 (0.7-4.5); Lymphocytes % 30.2 % (10-50); Mean Corpuscular HGB Conc 32.5 g/dL (31.8-35.4); Mean Corpuscular Hemoglobin 33.5 pg (27.0-31.2); Mean Corpuscular Volume 102.9 fl (81-99); Mean Platelet Volume 8.5 fl (7.4-10.4); Monocytes # 0.9 K/mm3 (0.1-1.0); Neutrophils # 4.1 K/mm3 (1.8-7.8); Neutrophils % 57.4 % (37.0-80.0); Platelet Count 108 K/mm3 (142-424); Red Blood Count 3.67 M/mm3 (4.20-5.40); Red Cell Distribution Width 15.1 % (11.5-17.5); White Blood Count 7.1 K/mm3 (4.8-10.8)
[2020-11-03 11:06] LABS: INR 1.11 (0.9-1.1)
[2020-11-03 11:23] LABS: Chloride 113 mmol/L (98-107); Potassium 3.9 mmoL/L (3.5-5.1); Sodium 138 mmol/L (136-145)
[2020-11-03 11:26] LABS: Alanine Aminotransferase 28 U/L (12-78); Albumin Level 2.8 g/dl (3.5-5.0); Albumin/Globulin Ratio 0.9 (1.1-1.8); Alkaline Phosphatase 128 U/L (38-126); Anion Gap 10.9 mEq/L (5-15); Aspartate Amino Transferase 52 U/L (14-36); Bilirubin,Total 1.8 mg/dl (0.2-1.3); Blood Urea Nitrogen 17 mg/dl (7-17); Calcium 8.7 mg/dl (8.4-10.2); Carbon Dioxide 18 mmol/L (22.0-30.0); Estimated Glomerular Filt Rate 72 ml/min (>60); GFR (African American) 87 ML/MIN (>60); Globulin 3.1 g/dL (1.3-3.2); Glucose 94 mg/dl (74-100); Total Protein,Serum 5.9 g/dl (6.3-8.2)
[2020-11-04 11:38] LABS: AFP, Tumor Marker 6.4 ng/mL (0.0-8.3)
== END ==
PROVIDERS: Visit Provider Nurse Practitioner Acute Care
DX: K74.60 Unspecified cirrhosis of liver (principal)
CPT/HCPCS: 36415; 80053; 82105; 85025; 85610

== ENCOUNTER → 2020-11-10 13:10 | Outpatient (CLI) | payer MEDICARE, SELFPAY ==
--- NOTE | 2020-11-10 13:14 | XR_ITS ---
PROCEDURE: XR KUB CLINICAL INDICATION: kidney stone COMPARISON: CT CT ABDOMEN PELVIS WO CON from 09/03/2020 CR XR KUB from 10/10/2020 FINDINGS: 13 mm right UPJ stone once again noted. The right ureteral stent has been removed. There is a moderate amount of retained colonic feces and there is mild lumbar scoliosis convex left. IMPRESSION: No change right renal stone Dictated by: Edgar Cortés MD 11/10/2020 16:11 Edgar Cortés MD in [place] 11/10/2020 16:11
== END ==
PROVIDERS: PCP Family Medicine; Visit Provider Urology
DX: N20.0 Calculus of kidney (principal)
CPT/HCPCS: 74018; 87086; 87088; 87186

== ENCOUNTER → 2020-11-10 15:36 | Outpatient (CLI) | payer MEDICARE, SELFPAY | PROVIDERS: Visit Provider Urology | DX: N39.0 Urinary tract infection, site not specified (principal); N20.1 Calculus of ureter | CPT/HCPCS: 74018; 87086; 87088; 87186 ==

== ENCOUNTER → 2020-12-03 14:10 | Outpatient (CLI) | payer MEDICARE, SELFPAY ==
[2020-12-03 14:44] LABS: Basophils % 0.2 % (0.1-2.0); Eosinophils % 0.2 % (0.1-12.0); Hematocrit 37.7 % (37.0-47.0); Hemoglobin 12.4 g/dL (12.2-16.2); Lymphocytes # 1.2 K/mm3 (0.7-4.5); Lymphocytes % 27.1 % (10-50); Mean Corpuscular Hemoglobin 33.5 pg (27.0-31.2); Mean Corpuscular Volume 101.4 fl (81-99); Monocytes # 0.4 K/mm3 (0.1-1.0); Monocytes % 9.7 % (1.7-9.3); Neutrophils # 2.8 K/mm3 (1.8-7.8); Neutrophils % 62.7 % (37.0-80.0); Platelet Count 105 K/mm3 (142-424); Red Blood Count 3.71 M/mm3 (4.20-5.40); Red Cell Distribution Width 14.3 % (11.5-17.5); White Blood Count 4.5 K/mm3 (4.8-10.8)
[2020-12-03 14:57] LABS: Anion Gap 9.6 mEq/L (5-15); Blood Urea Nitrogen 13 mg/dl (7-17); Calcium 8.4 mg/dl (8.4-10.2); Carbon Dioxide 21 mmol/L (22.0-30.0); Chloride 114 mmol/L (98-107); Estimated Glomerular Filt Rate 72 ml/min (>60); GFR (African American) 87 ML/MIN (>60); Glucose 159 mg/dl (74-100); Potassium 3.6 mmoL/L (3.5-5.1); Sodium 141 mmol/L (136-145)
== END ==
PROVIDERS: Visit Provider Urology
DX: N20.1 Calculus of ureter (principal); Z01.812 Encounter for preprocedural laboratory examination; Z20.822 Contact with and (suspected) exposure to COVID-19
CPT/HCPCS: 36415; 80048; 85025; U0003

== ENCOUNTER 2020-12-05 07:55 | Day surgery (SDC) | payer MEDICARE, SELFPAY ==
[2020-12-02 10:17] VITALS: BMI 29.0
--- NOTE | 2020-12-04 11:34 | SUR.PREOP ---
SPOKE WITH MEGHAN FROM DR. RAMIREZ'S OFFICE TO VERIFY THAT ANCEF 2GM IS OK TO BE GIVEN PRE-OP.
[2020-12-05] VITALS (11 sets, daily range): BP systolic 101–113; BP diastolic 57–76; PULSE 62–73; RESP 16–20; TEMP 36.1–40; O2SAT 92–96
--- NOTE | 2020-12-05 08:45 | HMH.ANESCL ---
[facility] Anesthesia Checklist - Patient Identification Patient Identification: Arm Band - Structural Data Admitted From: Home Planned Operative Procedure/s: Right ESWL Consent for Planned Operative Procedure(s) Verified: Yes Verified Documents: Surgical Consent, History and Physical - NPO Status Verified Time NPO: 00:00 - Additional verifications Anesthesia Reactions: No Hx Blood Transfusions: No Blood Transfusion Reaction: No - Airway Assessment C-Spine Mobility Assessed: Yes (mp2) TMJ Mobility Assessed: Yes Dentition: Good Dentition (Upper partial removed) - Neurological Assessment Level of Consciousness: Awake, Alert - Anesthesia Plan Anesthesia Risk discussed: Yes Anesthesia Plan: Verified ASA Class: III Anesthesia Type: General [facility] History I have reviewed the patient's past medical history: Yes Medical History: Reports:: Asthma, Depression, Hyperlipidemia, Lung Disease, Kidney Stones Denies:: Cancer, Diabetes Mellitus Type 1, Diabetes Mellitus Type 2, Internal Pacemaker, MRSA, Seizures *Have you ever received a pneumonia vaccine?: Yes *Have you received a flu vaccine this season?: Yes Other Medical History: Reports: Arthritis, Cataracts, Sinus Problems, Thyroid Disease, Other (Cirrhosis). Denies: Blood Transfusion Reaction Anesthesia experience/problems:: nac Laterality Cases: Left: Arthroscopy Shoulder Other Surgeries: Yes: Colonoscopy, Hernia Repair, Hysterectomy-Total, Hysterectomy-Partial, Sinus Surgery. No: Pacemaker Amputation: No Fractures: No - *Social History Smoking Status: Never smoker Alcohol Intake: never Substance Use Type: denies use *Occupational Status:: disabled Housing: house Household Members: none *Travel in the last 8 weeks: None - Psychiatric History Pschychiatric History:: Reports:: Depression Family Hx:: No significant family history
--- NOTE | 2020-12-05 10:46 | P.PN_ITS ---
[facility] Anesthesia Record Part I Intake, IV Amount: 1,000 Estimated blood loss (mL): 0 Urine output (mL): 0 Blood Pressure: 105/69 SaO2: 92 Pulse Rate: 73 Respiratory Rate: 16 Temperature: 97 F Patient is:: Drowsy, Stable Stable to PACU at:: 10:45
--- NOTE | 2020-12-05 10:56 | HMH.OPNOTE ---
Date of procedure: 12/05/20 Pre-op Diagnosis:: 7 mm right UPJ stone Post-op Diagnosis:: Same Procedure performed:: Right ESWL Surgeon:: Sebastien Jerome MD GROUNDS MANAGER:: Edgardo Morse Anesthesia: LMA Estimated blood loss (mL): 0 Clinical Note:: Patient is a 65-year-old white female with history of a 1.5 cm right renal pelvic stone. She has undergone previous right lithotripsy with a residual stone fragment of 7 mm. Her stent has been removed in the interval and she presents today for repeat ESWL of the stone fragment. Operative findings:: 7 mm stone fragment at the right UPJ noted on fluoroscopy. ESWL performed with good fragmentation. Operative note:: Patient taken to the operating room after informed consent was obtained. She was placed on the operating table in the supine position general anesthesia administered. He was positioned so that the lithotripter head was focused onto the right UPJ stone and a total of 3000 shockwaves at the maximum power level of 9 was delivered. There appeared to be good fragmentation of the stone. Patient tolerated the procedure well there were no complications. Condition: stable Disposition: PACU Specimens:: None Complications:: None
--- NOTE | 2020-12-05 11:21 | P.PN_ITS ---
[facility] Anesthesia Record Part II Discharge Time: 11:15 Destination: Surgical Day Care (OP Surgery) PACU nurse assessment reviewed?: Yes Patient Condition:: Good Anesthesia Complications:: None Swallowing reflex intact?: Yes Cyanosis?: No Blood Pressure: 108/57 Pulse Rate: 68 Temperature: 97.3 F Mental Status: Alert & Oriented Pain level:: 0 Nausea and/or vomitting:: None Intake, IV Amount: 0
== END 2020-12-05 12:05 | disposition home or self-care (01) ==
PROVIDERS: PCP Family Medicine; Visit Provider Urology
DX: N20.1 Calculus of ureter (principal); J45.909 Unspecified asthma, uncomplicated; F32.9 Major depressive disorder, single episode, unspecified; E78.5 Hyperlipidemia, unspecified; J98.4 Other disorders of lung; Z87.442 Personal history of urinary calculi; M19.90 Unspecified osteoarthritis, unspecified site; E07.9 Disorder of thyroid, unspecified; K74.60 Unspecified cirrhosis of liver; Z88.0 Allergy status to penicillin; Z88.2 Allergy status to sulfonamides; Z79.899 Other long term (current) drug therapy
CPT/HCPCS: 50590; 96374; J2405

== ENCOUNTER → 2020-12-16 08:11 | Outpatient (CLI) | payer MEDICARE, SELFPAY ==
--- NOTE | 2020-12-16 08:11 | XR_ITS ---
PROCEDURE: XR KUB CLINICAL INDICATION: kidney stone COMPARISON: CT CT ABDOMEN PELVIS WO CON from 09/03/2020 CR XR KUB from 11/10/2020 FINDINGS: Mild lumbar scoliosis convex left. Moderate amount of retained colonic feces. Previously noted 13 mm right UPJ stone is no longer apparent. IMPRESSION: Interval removal of right UPJ stone Dictated by: Edgar Cortés MD 12/16/2020 09:13 Edgar Cortés MD in [place] 12/16/2020 09:13
--- NOTE | 2020-12-16 08:20 | US_ITS ---
PROCEDURE: US LIVER CLINICAL INDICATION: CIRRHOSIS COMPARISON: US US LIVER from 06/04/[address] ABDOMEN PELVIS WO CON from 09/03/2020 FINDINGS: PANCREAS: Pancreas is not well delineated due to overlying bowel gas. CT or MRI without and with contrast with pancreatic protocol may provide further evaluation if clinically desired. LIVER: Cirrhotic appearance of the liver with a shrunken liver and coarse echogenicity. Turbulent blood flow demonstrated in and about the portal vein. The portal vein is not enlarged. RIGHT KIDNEY: 14 mm stone in the right renal pelvis with mild dilatation of the right renal pelvis GALLBLADDER: The gallbladder is difficult to evaluate technically. There is some increased echogenicity along the posterior aspect of the gallbladder with some shadowing suggesting tiny stones. Common bile duct is normal at 3 mm. No gallbladder wall thickening or pericholecystic fluid IMPRESSION: Cirrhotic appearing liver with turbulent blood flow within a non dilated portal vein. Right nephrolithiasis with mild dilatation of the right renal pelvis decreased compared to 06/04/2020 Suspected cholelithiasis Dictated by: Edgar Cortés MD 12/16/2020 12:53 Edgar Cortés MD in [place] 12/16/2020 12:53
== END ==
PROVIDERS: PCP Family Medicine; Visit Provider Nurse Practitioner Acute Care
DX: N20.0 Calculus of kidney (principal)
CPT/HCPCS: 74018; 76705

== ENCOUNTER → 2020-12-16 15:58 | Outpatient (CLI) | payer MEDICARE, SELFPAY ==
[2021-01-09 09:16] LABS: Ca oxalate dihydrate 60
[2021-01-09 09:17] LABS: Calcium phosphate 5
== END ==
PROVIDERS: Visit Provider Urology
DX: N20.1 Calculus of ureter (principal); N20.0 Calculus of kidney
CPT/HCPCS: 74018; 76705; 82370; 87086; 87088; 87186

== ENCOUNTER 2020-12-20 13:47 | Outpatient (CLI) | payer MEDICARE, SELFPAY ==
[2020-12-20 14:30] LABS: Chloride 111 mmol/L (98-107)
[2020-12-20 14:31] LABS: Potassium 3.7 mmoL/L (3.5-5.1); Sodium 140 mmol/L (136-145)
[2020-12-20 14:34] LABS: Anion Gap 11.7 mEq/L (5-15); Blood Urea Nitrogen 17 mg/dl (7-17); Calcium 8.9 mg/dl (8.4-10.2); Carbon Dioxide 21 mmol/L (22.0-30.0); Estimated Glomerular Filt Rate 84 ml/min (>60); GFR (African American) 102 ML/MIN (>60); Glucose 121 mg/dl (74-100)
[2020-12-20 14:35] VITALS: BP 119/71; PULSE 72; RESP 17; O2SAT 96
[2020-12-20 17:02] LABS: Gentamicin,Peak 7.3 ug/ml (4.0-8.0)
== END 2020-12-20 16:30 | disposition home or self-care (01) ==
LOC: INF 13:47
PROVIDERS: PCP Family Medicine; Visit Provider Urology
DX: N39.0 Urinary tract infection, site not specified (principal)
CPT/HCPCS: 36415; 80048; 80170; 96365

== ENCOUNTER → 2020-12-21 13:44 | Outpatient (CLI) | payer MEDICARE, SELFPAY ==
[2020-12-21 14:51] LABS: Gentamicin,Trough < 0.6 ug/ml (0.0-2.0)
--- NOTE | 2020-12-21 14:54 | P.CONPHA_ITS ---
- Pharmacy Consult Date: 12/21/20 Time: 14:54 Referring provider: DR. RAMIREZ Reason for Consult:: GENTAMICIN DOSING AND LEVELS Allergies and ADEs:: Allergies Allergy/AdvReac Type Severity Reaction Status Date / Time Penicillins Allergy Mild Verified 12/16/20 09:24 Sulfa (Sulfonamide Allergy Unknown NA-NAUSEA/V Verified 12/16/20 09:24 Antibiotics) OMITING [SULFA (SULFONAMIDE ANTIBIOTICS)] Home Medications:: Home Medications Medication Instructions Recorded Confirmed Type Levothyroxine Sodium [Synthroid 50 mcg PO DAILY 11/14/17 12/16/20 History 75mcg (0.075mg) tablet] Montelukast Sodium [Singulair 10mg 10 mg PO PM 11/14/17 12/16/20 History tablet] OLANZapine [Zyprexa] 7.5 mg PO DAILY 11/14/17 12/16/20 History budesonide-formoterol HFA 160 2 puff INHALATION BID 09/08/20 12/16/20 History mcg-4.5 mcg/actuation aerosol inhaler propranolol 10 mg tablet 10 mg PO BID 09/08/20 12/16/20 History rifaximin 550 mg tablet 550 mg PO BID 09/08/20 12/16/20 History rosuvastatin 5 mg tablet 5 mg PO DAILY 09/08/20 12/16/20 History Hydrocod/Acet 5/325 mg [[place] 1 tab PO Q6HP PRN #10 tab 10/03/20 12/16/20 Rx 5/325mg tablet] Miscellaneous [Unknown Home 1 each PO CONSULT PHARMACY 10/13/20 12/16/20 History Medication] Height: 1.6 m Weight: 71 kg Laboratory Results:: Laboratory Results - last 24 hr 12/21/20 14:13: Gentamicin Trough < 0.6 Medical History: Reports:: Asthma, Depression, Hyperlipidemia, Lung Disease, Kidney Stones Denies:: Cancer, Diabetes Mellitus Type 1, Diabetes Mellitus Type 2, Internal Pacemaker, MRSA, Seizures Assessment and Plan - Assessment and plan all Dx Assessment and Plan for all problems:: PATIENT RECEIVED GENTAMICIN 140 MG X1 DOSE YESTERDAY. TROUGH LEVEL WAS <0.6 MCG/ML TODAY. INCREASING DOSE TO GENTAMICIN 280 MG Q24H AT THIS TIME. DBW IS 60 KG.
== END ==
PROVIDERS: PCP Family Medicine; Visit Provider Urology
DX: N20.1 Calculus of ureter (principal); N39.0 Urinary tract infection, site not specified; Z51.81 Encounter for therapeutic drug level monitoring
CPT/HCPCS: 80170; 96365

== ENCOUNTER 2020-12-22 13:51 | Outpatient (CLI) | payer MEDICARE, SELFPAY ==
[2020-12-22 13:53] VITALS: BMI 27.6
--- NOTE | 2020-12-22 13:56 | PC.NURSE ---
pt arrived with a 20g IV established in the right AC. on assessment IV is patent, asymptomatic of infiltration and is positive for blood return. blood collected from IV and specimens walked to lab.
[2020-12-22 14:20] LABS: Chloride 110 mmol/L (98-107); Potassium 3.4 mmoL/L (3.5-5.1); Sodium 140 mmol/L (136-145)
[2020-12-22 14:22] LABS: Blood Urea Nitrogen 14 mg/dl (7-17); Creatinine Clearance Estimated 63 mL/min (50-200); Estimated Glomerular Filt Rate 72 ml/min (>60); GFR (African American) 87 ML/MIN (>60)
[2020-12-22 14:23] LABS: Anion Gap 10.4 mEq/L (5-15); Calcium 8.8 mg/dl (8.4-10.2); Carbon Dioxide 23 mmol/L (22.0-30.0); Glucose 92 mg/dl (74-100)
[2020-12-22 14:40] LABS: Gentamicin,Trough 0.8 ug/ml (0.0-2.0)
--- NOTE | 2020-12-22 14:45 | PC.NURSE ---
Addendum entered by Kady Dale RN 12/22/20 14:46: spoke with destini in lab. Original Note: called lab to check on results of pt blood. lab stated they put it in the wrong machine so it hadn't ran. they stated it would be resulted in 10 minutes.
--- NOTE | 2020-12-22 14:54 | PC.NURSE ---
Addendum entered by Kady Dale RN 12/24/20 14:47: informed pharmacy Original Note: informed lab that the pts labs were resulted. spoke with Shima
[2020-12-22 14:59] VITALS: BP 119/67; PULSE 78; RESP 16; TEMP 36.8; O2SAT 96
[2020-12-22 16:43] VITALS: BP 109/66; PULSE 72; RESP 17; TEMP 36.8; O2SAT 95
--- NOTE | 2020-12-22 16:43 | PC.NURSE ---
pt gentmicin peak level drawn with butterfly needle in left AC30 minutes after antibiotic infusion was completed. specimen walked to lab. pt IV left accessed for tomorrows infusion. pt IV secured with 2x2s and coban. no complaints from pt at this time.
[2020-12-22 18:28] LABS: Gentamicin,Peak 19.4 ug/ml (4.0-8.0)
--- NOTE | 2020-12-23 08:55 | HMH.PHACONS ---
- Pharmacy Consult Date: 12/23/20 Time: 08:56 Referring provider: DR. RAMIREZ Reason for Consult:: GENTAMICIN LEVELS AND DOSE CHANGE Allergies and ADEs:: Allergies Allergy/AdvReac Type Severity Reaction Status Date / Time Penicillins Allergy Mild Verified 12/16/20 09:24 Sulfa (Sulfonamide Allergy Unknown NA-NAUSEA/V Verified 12/16/20 09:24 Antibiotics) OMITING [SULFA (SULFONAMIDE ANTIBIOTICS)] Home Medications:: Home Medications Medication Instructions Recorded Confirmed Type Levothyroxine Sodium [Synthroid 50 mcg PO DAILY 11/14/17 12/16/20 History 75mcg (0.075mg) tablet] Montelukast Sodium [Singulair 10mg 10 mg PO PM 11/14/17 12/16/20 History tablet] OLANZapine [Zyprexa] 7.5 mg PO DAILY 11/14/17 12/16/20 History budesonide-formoterol HFA 160 2 puff INHALATION BID 09/08/20 12/16/20 History mcg-4.5 mcg/actuation aerosol inhaler propranolol 10 mg tablet 10 mg PO BID 09/08/20 12/16/20 History rifaximin 550 mg tablet 550 mg PO BID 09/08/20 12/16/20 History rosuvastatin 5 mg tablet 5 mg PO DAILY 09/08/20 12/16/20 History Hydrocod/Acet 5/325 mg [[place] 1 tab PO Q6HP PRN #10 tab 10/03/20 12/16/20 Rx 5/325mg tablet] Miscellaneous [Unknown Home 1 each PO CONSULT PHARMACY 10/13/20 12/16/20 History Medication] Height: 1.6 m Weight: 70.76 kg Laboratory Results:: Laboratory Results - last 24 hr 12/22/20 13:56: Sodium 140, Potassium 3.4 L, Chloride 110 H, Carbon Dioxide 23, Anion Gap 10.4, BUN 14, Creatinine 0.80, Estimated Creat Clear 63, Estimated GFR 72, Est GFR ( Amer) 87, Glucose 92, Calcium 8.8, Gentamicin Trough 0.8 12/22/20 16:44: Gentamicin Peak 19.4 H* Medical History: Reports:: Asthma, Depression, Hyperlipidemia, Lung Disease, Kidney Stones Denies:: Cancer, Diabetes Mellitus Type 1, Diabetes Mellitus Type 2, Internal Pacemaker, MRSA, Seizures Assessment and Plan - Assessment and plan all Dx Assessment and Plan for all problems:: PATIENT'S GENTAMICIN TROUGH LEVEL WAS 0.8 MCG/ML AND PEAK WAS 19.6 MCG/ML WITH GENTAMICIN 280 MG Q24H. RECOMMEND CHANGING DOSE TO GENTAMICIN 240 MG Q24H AT THIS TIME. WILL OBTAIN BMP AND TROUGH LEVEL PRIOR TO DOSE TOMORROW. PHARMACY WILL FOLLOW DAILY AND ADJUST APPROPRIATE.
== END 2020-12-22 16:46 | disposition home or self-care (01) ==
LOC: INF 13:51
PROVIDERS: Visit Provider Urology
DX: N39.0 Urinary tract infection, site not specified (principal)
CPT/HCPCS: 80048; 80170; 96365

== ENCOUNTER 2020-12-23 13:40 | Outpatient (CLI) | payer MEDICARE, SELFPAY ==
[2020-12-23 14:05] VITALS: BP 104/57; PULSE 67; RESP 18; TEMP 36.7; O2SAT 95
[2020-12-23 15:25] VITALS: BP 102/59; PULSE 66; RESP 18
== END 2020-12-23 15:25 | disposition home or self-care (01) ==
LOC: INF 13:44
PROVIDERS: Visit Provider Urology
DX: N20.1 Calculus of ureter (principal); N39.0 Urinary tract infection, site not specified
CPT/HCPCS: 96365

== ENCOUNTER 2020-12-24 13:30 | Outpatient (CLI) | payer MEDICARE, SELFPAY ==
[2020-12-24 13:02] VITALS: BP 125/69; PULSE 64; RESP 17; TEMP 36.9; O2SAT 99
[2020-12-24 13:39] VITALS: BMI 27.6
[2020-12-24 14:03] LABS: Chloride 113 mmol/L (98-107)
[2020-12-24 14:04] LABS: Potassium 3.6 mmoL/L (3.5-5.1); Sodium 139 mmol/L (136-145)
[2020-12-24 14:06] LABS: Blood Urea Nitrogen 15 mg/dl (7-17); Creatinine Clearance Estimated 63 mL/min (50-200); Estimated Glomerular Filt Rate 84 ml/min (>60); GFR (African American) 102 ML/MIN (>60)
[2020-12-24 14:07] LABS: Anion Gap 9.6 mEq/L (5-15); Calcium 8.2 mg/dl (8.4-10.2); Carbon Dioxide 20 mmol/L (22.0-30.0); Glucose 128 mg/dl (74-100)
--- NOTE | 2020-12-24 14:33 | PC.NURSE ---
spoke with maria esther in lab about pts gent. trough results. she stated they would be resulted in about 3 minutes
[2020-12-24 14:35] LABS: Gentamicin,Trough 0.9 ug/ml (0.0-2.0)
--- NOTE | 2020-12-24 14:45 | PC.NURSE ---
spoke with lamont in pharmacy and informed him pt trough level was resulted
[2020-12-24 16:10] VITALS: BP 116/64; PULSE 57; RESP 17; O2SAT 98
== END 2020-12-24 16:12 | disposition home or self-care (01) ==
LOC: INF 13:35
PROVIDERS: Visit Provider Urology
DX: N20.1 Calculus of ureter (principal); N20.0 Calculus of kidney
CPT/HCPCS: 36415; 80048; 80170; 96365

== ENCOUNTER 2020-12-25 13:35 | Outpatient (CLI) | payer MEDICARE, SELFPAY ==
[2020-12-25 14:02] VITALS: BP 116/68; PULSE 62; RESP 18; O2SAT 95
[2020-12-25 15:20] VITALS: BP 112/67; PULSE 58; RESP 18
== END 2020-12-25 15:20 | disposition home or self-care (01) ==
LOC: INF 13:47
PROVIDERS: Visit Provider Urology
DX: N20.1 Calculus of ureter (principal); N20.0 Calculus of kidney
CPT/HCPCS: 96365

== ENCOUNTER 2020-12-26 13:20 | Outpatient (CLI) | payer MEDICARE, SELFPAY ==
[2020-12-26 13:40] VITALS: BP 105/60; PULSE 66; RESP 16; TEMP 36.5
[2020-12-26 14:45] VITALS: BP 113/66; PULSE 63; RESP 16
== END 2020-12-26 15:00 | disposition home or self-care (01) ==
LOC: INF 13:25
PROVIDERS: Visit Provider Urology
DX: N20.1 Calculus of ureter (principal); N20.0 Calculus of kidney; N39.0 Urinary tract infection, site not specified
CPT/HCPCS: 96365

== ENCOUNTER → 2021-02-24 13:25 | Outpatient (CLI) | payer MEDICARE, SELFPAY ==
--- NOTE | 2021-02-24 13:30 | XR_ITS ---
PROCEDURE: XR KUB CLINICAL INDICATION: kidney stone COMPARISON: CT CT ABDOMEN PELVIS WO CON from 09/03/2020 CR XR KUB from 12/16/2020 FINDINGS: Mild lumbar scoliosis convex left. Moderate amount of retained colonic feces. No obvious renal or ureteral calculi. IMPRESSION: No acute findings. Dictated by: Edgar Cortés MD 02/24/2021 14:48 Edgar Cortés MD in [place] 02/24/2021 14:49
== END ==
PROVIDERS: PCP Family Medicine; Visit Provider Pathology Anatomic Pathology & Clinical Pathology
DX: N20.0 Calculus of kidney (principal)
CPT/HCPCS: 74018

== ENCOUNTER → 2021-05-15 12:44 | Outpatient (CLI) | payer MEDICARE, SELFPAY | PROVIDERS: PCP Family Medicine; Visit Provider Family Medicine | DX: U07.1 COVID-19 (principal) | CPT/HCPCS: C9803; U0003; U0005 ==

== ENCOUNTER 2021-05-23 09:41 | Emergency (ER) | payer MEDICARE, SELFPAY ==
[2021-05-23 09:56] VITALS: BP 97/57; PULSE 74; RESP 18; TEMP 36.8; O2SAT 92; BMI 30.1
[2021-05-23 10:00] VITALS: BP 97/57; PULSE 74; RESP 18; TEMP 36.8; O2SAT 92; BMI 30.1
[2021-05-23 10:20] LABS: UTC Strep Screen (Rapid) Negative (Negative)
--- NOTE | 2021-05-23 10:39 | HMH.EDUTC ---
[facility] Disposition Clinical Impression: Sore throat Disposition: Left Against Medical Advice Condition on Discharge: Good Instructions: Dehydration, DI for Dehydration -- Adult, DI for Nausea -- Child, DI for Vomiting -- Adult Additional Instructions: *Monitor Temp, Over the counter Motrin or Tylenol as directed/as needed Tylenol every 4 hours and Motrin every 6 hours (as long as your family doctor has told you that you can take it) for fever or pain. and straight to ER if unable to lower temp less than 101.0 after medication given *Warm salt water gargles may help to soothe the throat *Throat Lozenges *Warm fluids like tea with honey may help to soothe the throat *Sleep elevated *Humidifier/Vaporizer *It was recommended that you be sent to the ED for further evaluation, labs and testing and you Declined, you need to be making sure that you are drinking plenty fluids to help keep yourself hydrated Your throat swab was sent for culture. Those results are typically sent to your primary care. Be sure to follow up in 2-3 days with your family doctor/primary care physician if no improvement so they can review those result and treat if necessary. If you don?t have a primary care doctor, I recommend you get one but in the mean time, you will have to return to a walk in clinic Follow up IMMEDIATELY for new or worsening symptoms or no Noticeable improvement over the next 48-72 hours. 911 for difficulty breathing or swallowing Go Straight to ER if any worsening of symptoms or any life threatening symptoms Prescriptions: Ondansetron [Zofran 4mg ODT] 4 mg PO TIDP PRN #10 tab PRN Reason: Nausea Transmission Status: Received by [facility]. Referrals: Iftikhar Aguirre MD [Primary Care Provider] - As needed Medical Decision Making - Tommy Inquiry Pt receiving controlled substance: No Tommy was queried for this patient: No Vital Signs: 05/23/21 09:56 05/23/21 10:00 05/23/21 11:03 Temperature 98.2 F 98.2 F 98.2 F Temperature Source Oral Oral Pulse Rate 68 Pulse Rate [Left Radial] 74 74 Respiratory Rate 18 18 22 Blood Pressure 100/54 L Blood Pressure [Left Arm] 97/57 L 97/57 L Blood Pressure Mean [Left Arm] 70 70 Blood Pressure Source [Left Arm] Automatic Cuff Automatic Cuff Blood Pressure Position [Left Arm] Sitting 02 Sat by Pulse Oximetry 92 L 92 L Oxygen Delivery Method Room Air Room Air - Lab Data Lab Results 05/23/21 10:08: Strep [facility] Negative Orders (Tests/Meds): ORDERS Category Date Time Status Strep Screen Confirmation Stat Micro 05/23/21 10:08 Received Medical Decision Narrative: Discussed with patient and lips appear dry an patient reports she is COVID positive and not been eating or drinking well due to nausea Patient was prescribed Phenergan by her PCP but states that it is not working well Due to vitals and patient appearance recommended transfer back to the ED for further work up and evaluation and patient declined Recommended at the least in the [facility] lab work and a bolus of IV fluids and patient declined also State that she wanted to get tested for strep and treated if needed then she will go home and drink fluids but wanted to get something else for the nausea Patient educated of risks even and still declined transfer to the ED or fluids and labs in the [facility] Patient states that she is drinking a water right now and feeling OK [facility] HPI - General Stated complaint: sore throat, cough, chills, sob Time Seen by Provider: 05/23/21 10:39 Mode of Arrival: Ambulatory Source of Information: Patient Limitations: No Limitations Description of Symptoms (Recalled from Triage Doc. by RN): PATIENT C/O SORE THROAT AND COUGH. TESTED POSITIVE FOR COVID ON 05/15/21 HEENT Symptoms (Recalled from RN notes): Yes Resp Symptoms (Recalled from RN notes): Yes Skin Symptoms (Recalled from RN notes): No MS Symptoms (Recalled from RN notes): No Functional Status (Recalled fr
[2021-05-23 11:03] VITALS: BP 100/54; PULSE 68; RESP 22; TEMP 36.8; O2SAT 96
== END 2021-05-23 11:06 | disposition left against medical advice (07) ==
LOC: ER 09:57 → UTC 09:58
PROVIDERS: Emergency Provider Nurse Practitioner; PCP Family Medicine
DX: U07.1 COVID-19 (principal); J02.9 Acute pharyngitis, unspecified; J45.909 Unspecified asthma, uncomplicated; E78.5 Hyperlipidemia, unspecified
CPT/HCPCS: G0463; 87880; 99202

== ENCOUNTER 2021-05-25 12:39 | Emergency (ER) | payer MEDICARE, SELFPAY ==
[2021-05-25] VITALS (7 sets, daily range): BP systolic 112–138; BP diastolic 52–78; PULSE 73–78; RESP 18; TEMP 36.6; O2SAT 94–95; BMI 30.4
[2021-05-25 14:45] LABS: Microscopic, Urine URINE MICROSCOPIC (MICROSCOPIC)
[2021-05-25 14:47] LABS: Appearance,Urine SL CLOUDY (Clear); Blood, Urine 2+ (Negative); Color,Urine DK YELLOW (Yellow); Glucose,Urine (UA) Negative (Negative); Ketones,Urine Negative (Negative); Leukocyte Esterase,Urine 3+ (Negative); Nitrate,Urine POSITIVE (Negative); Protein,Urine TRACE (Negative)
[2021-05-25 14:52] LABS: Basophils % 0.3 % (0.1-2.0); Eosinophils % 0.2 % (0.1-12.0); Hematocrit 41.3 % (37.0-47.0); Hemoglobin 13.4 g/dL (12.2-16.2); Lymphocytes # 1.1 K/mm3 (0.7-4.5); Lymphocytes % 17.3 % (10-50); Mean Corpuscular HGB Conc 32.4 g/dL (31.8-35.4); Mean Corpuscular Hemoglobin 33.5 pg (27.0-31.2); Mean Corpuscular Volume 103.4 fl (81-99); Mean Platelet Volume 8.4 fl (7.4-10.4); Monocytes # 0.6 K/mm3 (0.1-1.0); Monocytes % 10.1 % (1.7-9.3); Neutrophils # 4.5 K/mm3 (1.8-7.8); Neutrophils % 72.1 % (37.0-80.0); Platelet Count 161 K/mm3 (142-424); Red Blood Count 3.99 M/mm3 (4.20-5.40); Red Cell Distribution Width 19.3 % (11.5-17.5); White Blood Count 6.2 K/mm3 (4.8-10.8)
[2021-05-25 14:57] LABS: Bilirubin,Urine 1+ (Negative)
[2021-05-25 15:02] LABS: Chloride 105 mmol/L (98-107); Sodium 139 mmol/L (136-145)
[2021-05-25 15:03] LABS: Potassium 3.2 mmoL/L (3.5-5.1)
[2021-05-25 15:05] LABS: Alanine Aminotransferase 57 U/L (12-78); Albumin Level 3.1 g/dl (3.5-5.0); Albumin/Globulin Ratio 0.8 (1.1-1.8); Alkaline Phosphatase 272 U/L (38-126); Anion Gap 9.2 mEq/L (5-15); Aspartate Amino Transferase 113 U/L (14-36); Bilirubin,Total 3.5 mg/dl (0.2-1.3); Blood Urea Nitrogen 12 mg/dl (7-17); Carbon Dioxide 28 mmol/L (22.0-30.0); Creatinine Clearance Estimated 69 mL/min (50-200); Estimated Glomerular Filt Rate 56 ml/min (>60); GFR (African American) 67 ML/MIN (>60); Globulin 3.9 g/dL (1.3-3.2)
[2021-05-25 15:06] LABS: Calcium 9.5 mg/dl (8.4-10.2); Glucose 139 mg/dl (74-100)
[2021-05-25 15:30] LABS: Bacteria,Urine 2+ /lpf; RBC,Urine TNTC #/hpf (0-3); Squamous Epithelial Cell,Urine Occasional #/hpf (0-5); WBC,Urine TNTC #/hpf (0-3)
--- NOTE | 2021-05-25 15:33 | US_ITS ---
PROCEDURE: US ABDOMEN LIMITED CLINICAL INDICATION: elevated t bili COMPARISON: US US ABDOMEN LIMITED from 10/31/[address] ABDOMEN PELVIS WO CON from 09/03/2020 FINDINGS: PANCREAS: Poorly demonstrated LIVER: The liver margin is irregular and there is decrease coarse echogenicity of the liver. These findings are compatible with cirrhosis. Portal blood flow is not adequately demonstrated. RIGHT KIDNEY: Unremarkable. Gallbladder: Cholelithiasis. Gallbladder is contracted. Common bile duct is normal at 3 mm. No pericholecystic fluid dilatation. No gallbladder wall thickening. IMPRESSION: Cholelithiasis. Cirrhotic appearance of the liver. Portal blood flow is not adequately demonstrated Dictated by: Edgar Cortés MD 05/25/2021 17:04 Edgar Cortés MD in [place] 05/25/2021 17:04
[2021-05-25 15:44] LABS: Ammonia 18 umol/L (9-30)
--- NOTE | 2021-05-25 16:33 | HMH.EDGENADL ---
ED Disposition Clinical Impression: UTI (urinary tract infection) Qualifiers: Urinary tract infection type: acute cystitis Hematuria presence: without hematuria Qualified Code(s): N30.00 - Acute cystitis without hematuria Disposition: Home, Self-Care Condition on Discharge: Good Prescriptions: cefUROXime axetiL [Ceftin 250mg Tablet] 250 mg PO BID #14 tab Transmission Status: Pending to Clinic Pharmacy [facility] Referrals: Iftikhar Aguirre MD [Primary Care Provider] - Time of Disposition: 16:43 - Critical Care Critical Care Time: No Attestation: On 05/25/21, the high probability of a clinically significant, sudden or life threatening deterioration of the following system(s) required my full and direct attention, intervention and personal management. The time I documented below is in addition to time spent performing reported procedures but includes the following listed in this critical care notation. Medical Decision Making - Medical Records Medical records reviewed: Yes: I reviewed the patient's medical records. - Tommy Inquiry Pt receiving controlled substance: No Vital Signs: 05/25/21 13:43 05/25/21 13:44 05/25/21 14:00 Temperature 97.9 F Temperature Source Oral Pulse Rate 75 77 Pulse Rate [Left Radial] 78 Respiratory Rate 18 Blood Pressure 136/78 138/57 L Blood Pressure [Right Arm] 136/78 Blood Pressure Mean 97 84 Blood Pressure Mean [Right Arm] 97 02 Sat by Pulse Oximetry 95 94 L 95 Oxygen Delivery Method Room Air 05/25/21 14:42 05/25/21 15:01 05/25/21 15:30 Temperature Temperature Source Pulse Rate 75 73 75 Pulse Rate [Left Radial] Respiratory Rate Blood Pressure 131/72 112/52 L 113/73 Blood Pressure [Right Arm] Blood Pressure Mean 91 72 86 Blood Pressure Mean [Right Arm] 02 Sat by Pulse Oximetry 95 95 95 Oxygen Delivery Method - Lab Data Lab results reviewed: Yes: I reviewed the patient's lab results. Lab Results 05/25/21 14:40: WBC 6.2, RBC 3.99 L, Hgb 13.4, Hct 41.3, MCV 103.4 H, MCH 33.5 H, MCHC 32.4, RDW 19.3 H, Plt Count 161, MPV 8.4, Neut % (Auto) 72.1, Lymph % (Auto) 17.3, [place] % (Auto) 10.1 H, Eos % (Auto) 0.2, Baso % (Auto) 0.3, Neut # (Auto) 4.5, Lymph # (Auto) 1.1, [place] # (Auto) 0.6, Eos # (Auto) 0.0, Baso # (Auto) 0.0 05/25/21 14:40: Sodium 139, Potassium 3.2 L, Chloride 105, Carbon Dioxide 28, Anion Gap 9.2, BUN 12, Creatinine 1.00, Estimated Creat Clear 69, Estimated GFR 56 L, Est GFR ( Amer) 67, Glucose 139 H, Calcium 9.5, Total Bilirubin 3.5 H, AST 113 H, ALT 57, Alkaline Phosphatase 272 H, Total Protein 7.0, Albumin 3.1 L, Globulin 3.9 H, Albumin/Globulin Ratio 0.8 L 05/25/21 15:20: Ammonia 18 05/25/21 : Urine Color Dk yellow, Urine Appearance Sl cloudy, Urine pH 6.0, Ur Specific [place] 1.020, Urine Protein Trace, Urine Glucose (UA) Negative, Urine Ketones Negative, Urine Blood 2+, Urine Nitrate Positive, Urine Bilirubin 1+ A, Urine Urobilinogen 2.0, Ur Leukocyte Esterase 3+ A, Urine RBC Tntc, Urine WBC Tntc, Ur Squamous Epith Cells Occasional, Urine Bacteria 2+ Result diagrams: 05/25/21 14:40 05/25/21 14:40 Orders (Tests/Meds): ED MEDICATIONS Generic Name Dose Route Start Last Admin Trade Name Freq PRN Reason Stop Dose Admin Ceftriaxone Sodium 1 gm/ 50 mls @ 100 mls/hr 05/25/21 15:15 05/25/21 15:22 Sodium Chloride IV 06/08/21 15:14 100 mls/hr Q24H BETHANY Administration ORDERS Category Date Time Status US RUQ [US abdomen limited] Stat Exams 05/25/21 15:33 Ordered Urine Culture Stat Micro 05/25/21 Received - US Data US Images: Gallbladder ED US Reviewed: Yes: I have reviewed the patient's US results Findings Narrative: Gallstones without sign of obstruction. Cirrhotic liver. Medical Decision Narrative: 65yo F evaluated the emergency department secondary to concern for altered mental status. Patient is alert and orient x4 my initial evaluation. She has no complaint but is agreeable to l
== END 2021-05-25 16:57 | disposition home or self-care (01) ==
PROVIDERS: Emergency Provider Family Medicine; PCP Family Medicine
DX: N30.00 Acute cystitis without hematuria (principal); E78.5 Hyperlipidemia, unspecified; F41.8 Other specified anxiety disorders; Z88.0 Allergy status to penicillin; Z88.2 Allergy status to sulfonamides
CPT/HCPCS: 76705; 80053; 81001; 82140; 85025; 87086; 87088; 87186; 96374; 99283

== ENCOUNTER → 2021-06-12 10:35 | Outpatient (CLI) | payer MEDICARE, SELFPAY ==
--- NOTE | 2021-06-12 10:51 | ECG_ITS ---
APPROVED REPORT Exam: Resting ECG HR:129 bpm ECG Measurements Heart Rate 129 AXES AZ 154 P 60 QRSd 86 QRS 50 QT 346 T 47 QTc 506 Conclusion Sinus tachycardia with premature atrial complexes Otherwise normal ECG Electronically signed by : Virgilio Morel MD 06/13/2021 06:14:24
[2021-06-12 11:27] LABS: INR 1.26 (0.9-1.1)
[2021-06-12 11:35] LABS: Alanine Aminotransferase 69 U/L (12-78); Albumin/Globulin Ratio 0.7 (1.1-1.8); Alkaline Phosphatase 301 U/L (38-126); Amylase 66 U/L (30-110); Aspartate Amino Transferase 139 U/L (14-36); Bilirubin,Total 4.6 mg/dl (0.2-1.3); Blood Urea Nitrogen 16 mg/dl (7-17); Calcium 8.7 mg/dl (8.4-10.2); Carbon Dioxide 26 mmol/L (22.0-30.0); Chloride 95 mmol/L (98-107); Estimated Glomerular Filt Rate 56 ml/min (>60); GFR (African American) 67 ML/MIN (>60); Globulin 4.1 g/dL (1.3-3.2); Glucose 201 mg/dl (74-100); Lipase 176 U/L (23-300); Sodium 131 mmol/L (136-145); Total Protein,Serum 7.1 g/dl (6.3-8.2)
[2021-06-12 11:36] LABS: Basophils % 0.3 % (0.1-2.0); Eosinophils % 0.2 % (0.1-12.0); Hematocrit 44.4 % (37.0-47.0); Hemoglobin 14.4 g/dL (12.2-16.2); Lymphocytes # 0.9 K/mm3 (0.7-4.5); Lymphocytes % 12.7 % (10-50); Mean Corpuscular HGB Conc 32.4 g/dL (31.8-35.4); Mean Corpuscular Hemoglobin 34.5 pg (27.0-31.2); Mean Corpuscular Volume 106.6 fl (81-99); Mean Platelet Volume 8.5 fl (7.4-10.4); Monocytes % 12.7 % (1.7-9.3); Neutrophils # 5.6 K/mm3 (1.8-7.8); Neutrophils % 74.2 % (37.0-80.0); Platelet Count 128 K/mm3 (142-424); Red Blood Count 4.17 M/mm3 (4.20-5.40); Red Cell Distribution Width 19.4 % (11.5-17.5); White Blood Count 7.5 K/mm3 (4.8-10.8)
[2021-06-12 12:17] LABS: Anion Gap 13.5 mEq/L (5-15); Potassium 3.5 mmoL/L (3.5-5.1)
[2021-06-12 13:58] LABS: Hemoglobin A1C 4.3 % (4.0-6.0)
== END ==
PROVIDERS: Family Medicine; Visit Provider Surgery
DX: J02.9 Acute pharyngitis, unspecified (principal); R10.11 Right upper quadrant pain; R73.9 Hyperglycemia, unspecified; R74.8 Abnormal levels of other serum enzymes
CPT/HCPCS: 36415; 80053; 82150; 82565; 83036; 83690; 84520; 85025; 85610; 93005

== ENCOUNTER → 2021-06-19 09:29 | Outpatient (CLI) | payer MEDICARE, SELFPAY ==
--- NOTE | 2021-06-19 09:29 | CT_ITS ---
PROCEDURE INFORMATION: Exam: CT Abdomen And Pelvis With Contrast Exam date and time: 06/19/2021 9:29 AM Age: 65 years old Clinical indication: Abdominal pain; Patient HX: HX of cirrhosis of the liver TECHNIQUE: Imaging protocol: Computed tomography of the abdomen and pelvis with contrast. Radiation optimization: All CT scans at this facility use at least one of these dose optimization techniques: automated exposure control; mA and/or kV adjustment per patient size (includes targeted exams where dose is matched to clinical indication); or iterative reconstruction. Contrast material: ISOVUE; Contrast volume: 75 ml; Contrast route: IV; COMPARISON: CT ABDOMEN PELVIS WO CON 09/03/2020 1:57 PM FINDINGS: Lungs: Lung bases are clear. Diaphragm: A small hiatal hernia is present. Liver: The liver has a nodular contour and there is relative hypertrophy of the caudate lobe, consistent with cirrhosis. No discrete liver lesions are appreciated. Periportal varices. Gallbladder and bile ducts: Multiple calcified gallstones are present. The gallbladder is otherwise unremarkable. There is no evidence of biliary ductal dilation. Pancreas: Normal. No ductal dilation. Spleen: There is nonspecific splenomegaly, measuring 13.2 cm. The spleen is otherwise unremarkable. Perisplenic varices. Adrenal glands: Normal. No mass. Kidneys and ureters: 2 mm nonobstructive right renal stone. The kidneys are otherwise unremarkable. The ureters are normal. Stomach and bowel: No bowel obstruction or significant bowel wall thickening. There is excessive colonic stool content. Appendix: A normal appendix is identified. Intraperitoneal space: No free fluid, fluid collections, or pneumoperitoneum. Retroperitoneal space: No acute abnormalities in the retroperitoneal space. Vasculature: Tortuosity and enlargement of the splenic vein. Perigastric varices. Periesophageal varices. Omental varices. Recanalization of the umbilical vein. Portal venous system appears patent. The vasculature demonstrates diffuse mild atherosclerotic calcification. Lymph nodes: No retroperitoneal, pelvic, or mesenteric adenopathy. Urinary bladder: The bladder is decompressed. Reproductive: There has been a hysterectomy. Bones/joints: No acute skeletal pathology. Severe multilevel degenerative changes of the spine, as manifested by multilevel anterior osteophytes and multilevel decrease in intervertebral disc space. Chronic compression fracture of L2 with 50% loss in vertebral body height. This is new from the reference examination. Soft tissues: No acute body wall soft tissue findings. Other findings: Left splenorenal shunting. IMPRESSION: 1. Cirrhosis and extensive sequela of portal hypertension. 2. No concerning liver lesions are appreciated at this time. 3. No acute abdominopelvic pathology otherwise noted. 4. Incidental findings as above.
== END ==
PROVIDERS: PCP Family Medicine; Visit Provider Surgery
DX: R10.11 Right upper quadrant pain (principal)
CPT/HCPCS: 74177; Q9967

== ENCOUNTER → 2021-07-06 14:45 | Outpatient (CLI) | payer MEDICARE, SELFPAY | PROVIDERS: PCP Family Medicine; Visit Provider Family Medicine | DX: G47.33 Obstructive sleep apnea (adult) (pediatric) (principal); R06.83 Snoring | CPT/HCPCS: G0399 ==

== ENCOUNTER → 2021-10-16 10:26 | Outpatient (CLI) | payer MEDICARE, SELFPAY ==
--- NOTE | 2021-10-16 10:30 | XR_ITS ---
FINAL REPORT CLINICAL HISTORY: LEFT knee pain FINDINGS: LEFT KNEE Three views were obtained. There is no acute fracture or dislocation. Mild and moderate degenerative changes are present. There is no joint effusion. No soft tissue abnormality is identified. IMPRESSION: Degenerative changes without acute bony abnormality. Reviewed, Interpreted and Dictated by Kenneth Bland III, MD Transcribed by Jaclyn Coelho Authenticated by Kenneth Bland III, MD on 10/16/2021 12:49:19 PM [facility]
--- NOTE | 2021-10-16 10:30 | XR_ITS ---
FINAL REPORT CLINICAL HISTORY: RIGHT knee pain FINDINGS: RIGHT KNEE Four views were obtained. There is no acute fracture or dislocation. There are moderate degenerative changes, greatest in the patellofemoral compartment. Soft tissue calcification is identified. There is no joint effusion. IMPRESSION: Degenerative changes without acute bony abnormality. Reviewed, Interpreted and Dictated by Kenneth Bland III, MD Transcribed by Jaclyn Coelho Authenticated by Kenneth Bland III, MD on 10/16/2021 12:49:17 PM [facility]
== END ==
PROVIDERS: PCP Family Medicine; Visit Provider Orthopaedic Surgery
DX: M25.561 Pain in right knee (principal); M25.562 Pain in left knee
CPT/HCPCS: 73564

== ENCOUNTER 2021-10-16 11:49 | Outpatient (RCR) | payer MEDICARE, SELFPAY | END 2021-10-16 12:40 | disposition home or self-care (01) | LOC: PT 11:49 | PROVIDERS: Visit Provider Orthopaedic Surgery | DX: M25.562 Pain in left knee (principal); M25.561 Pain in right knee | CPT/HCPCS: 97760 ==

== ENCOUNTER → 2021-11-19 09:28 | Outpatient (CLI) | payer MEDICARE, SELFPAY ==
--- NOTE | 2021-11-19 09:38 | XR_ITS ---
FINAL REPORT CLINICAL HISTORY: LOW BACK PAIN, hx of compression fx 6 months ago COMPARISON: KUB dated 02/24/2021 FINDINGS: AP, lateral, and oblique views of the lumbar spine were obtained. There is a severe compression deformity of L2 which is new since the prior KUB dated 02/24/2021. There is greater than 75% loss of vertebral body height anteriorly. No other fractures identified. There is multilevel degenerative disc disease, most pronounced at L4-5. IMPRESSION: Severe compression deformity of L2, new since prior. Consider MRI. Reviewed, Interpreted and Dictated by Mary Jane Grace MD Transcribed by Jaclyn Coelho Authenticated by Mary Jane Grace MD on 11/19/2021 11:20:[address] [facility]
== END ==
PROVIDERS: PCP Physician Assistant; Visit Provider Physician Assistant
DX: M54.50 Low back pain, unspecified (principal)
CPT/HCPCS: 72110

== ENCOUNTER → 2021-12-02 09:18 | Outpatient (CLI) | payer MEDICARE, SELFPAY ==
--- NOTE | 2021-12-02 09:27 | MR_ITS ---
FINAL REPORT CLINICAL HISTORY: COMPRESSION FRACTURE OF L2 VERTEBRA, INITIAL ENCOUNTER FALL X 1-2 WEEKS LOWER BACK PAIN FINDINGS: Multiplanar MR imaging of the lumbar spine was performed without contrast. On the sagittal T2-weighted images, disc degeneration is seen throughout. There is a mild acute L1 compression fracture with 30% loss of height. There is a severe L2 compression fracture, much of this is chronic but with a small acute component. Endplate changes are seen at multiple levels. The vertebral alignment is normal. The conus has an unremarkable appearance. T11-12: There is no significant canal stenosis or neural foraminal narrowing. T12-L1: An annular bulge is present. Facet arthropathy and osteophytes are present. There is mild left neural foraminal narrowing. L1-2: An annular bulge is present. Facet arthropathy and osteophytes are present. There is mild bilateral neural foraminal narrowing. L2-3: An annular bulge is present. Facet arthropathy and osteophytes are present. There is a left foraminal disc protrusion with mild bilateral neural foraminal narrowing. L3-4: An annular bulge and facet arthropathy are present. There is mild right neural foraminal narrowing. L4-5: An annular bulge is present. Facet arthropathy and osteophytes are present. There is mild bilateral neural foraminal narrowing. L5-S1: An annular bulge is present with mild left neural foraminal narrowing. IMPRESSION: Mild acute L1 compression fracture with 30% loss of height. Severe L2 compression fracture, much of which is chronic but with a small acute component. Multilevel degenerative disc disease and spondylosis. Left foraminal disc protrusion at L2-3. Reviewed, Interpreted and Dictated by Kenneth Bland III, MD Transcribed by Jaclyn Coelho Authenticated and . [facility]
== END ==
PROVIDERS: PCP Physician Assistant; Visit Provider Physician Assistant
DX: S32.020A Wedge compression fracture of second lumbar vertebra, initial encounter for closed fracture (principal)
CPT/HCPCS: 72148; 76376

== ENCOUNTER → 2021-12-10 10:46 | Outpatient (CLI) | payer MEDICARE, SELFPAY ==
--- NOTE | 2021-12-10 | ECG_ITS ---
APPROVED REPORT Exam: Resting ECG HR:77 bpm ECG Measurements Heart Rate 77 AXES QRSd 108 QRS 50 QT 366 T 54 QTc 398 Conclusion ATRIAL FIBRILLATION ABNORMAL RHYTHM ECG UNCONFIRMED REPORT Electronically signed by : Virgilio Morel MD 12/11/2021 15:37:56
[2021-12-10 11:27] LABS: Basophils # 0.1 K/mm3 (0-0.2); Basophils % 0.8 % (0.1-2.0); Eosinophils % 0.3 % (0.1-12.0); Hematocrit 36.6 % (37.0-47.0); Hemoglobin 12.2 g/dL (12.2-16.2); Lymphocytes # 1.6 K/mm3 (0.7-4.5); Lymphocytes % 27.2 % (10-50); Mean Corpuscular HGB Conc 33.4 g/dL (31.8-35.4); Mean Corpuscular Hemoglobin 35.6 pg (27.0-31.2); Mean Corpuscular Volume 106.5 fl (81-99); Mean Platelet Volume 7.9 fl (7.4-10.4); Monocytes # 0.5 K/mm3 (0.1-1.0); Monocytes % 8.5 % (1.7-9.3); Neutrophils # 3.6 K/mm3 (1.8-7.8); Neutrophils % 63.2 % (37.0-80.0); Platelet Count 136 K/mm3 (142-424); Red Blood Count 3.44 M/mm3 (4.20-5.40); Red Cell Distribution Width 15.7 % (11.5-17.5); White Blood Count 5.7 K/mm3 (4.8-10.8)
[2021-12-10 11:38] LABS: Chloride 106 mmol/L (98-107); Sodium 136 mmol/L (136-145)
[2021-12-10 11:41] LABS: Blood Urea Nitrogen 16 mg/dl (7-17); Calcium 8.6 mg/dl (8.4-10.2); Carbon Dioxide 28 mmol/L (22.0-30.0); Estimated Glomerular Filt Rate 72 ml/min (>60); GFR (African American) 87 ML/MIN (>60); Glucose 140 mg/dl (74-100)
== END ==
PROVIDERS: PCP Family Medicine; Visit Provider Orthopaedic Surgery
DX: Z01.818 Encounter for other preprocedural examination (principal); M54.50 Low back pain, unspecified
CPT/HCPCS: 36415; 80048; 85025; 93005

== ENCOUNTER → 2021-12-17 07:34 | Outpatient (CLI) | payer MEDICARE, SELFPAY ==
[2021-12-17 07:40] LABS: Microscopic, Urine URINE MICROSCOPIC (MICROSCOPIC)
[2021-12-17 08:02] LABS: Basophils # 0.1 K/mm3 (0-0.2); Basophils % 1.1 % (0.1-2.0); Eosinophils % 0.1 % (0.1-12.0); Hematocrit 40.1 % (37.0-47.0); Hemoglobin 12.9 g/dL (12.2-16.2); Lymphocytes # 2.5 K/mm3 (0.7-4.5); Lymphocytes % 32.8 % (10-50); Mean Corpuscular HGB Conc 32.1 g/dL (31.8-35.4); Mean Corpuscular Hemoglobin 34.3 pg (27.0-31.2); Mean Corpuscular Volume 107.1 fl (81-99); Mean Platelet Volume 8.3 fl (7.4-10.4); Monocytes # 0.7 K/mm3 (0.1-1.0); Monocytes % 8.6 % (1.7-9.3); Neutrophils # 4.3 K/mm3 (1.8-7.8); Neutrophils % 57.4 % (37.0-80.0); Platelet Count 144 K/mm3 (142-424); Red Blood Count 3.75 M/mm3 (4.20-5.40); Red Cell Distribution Width 15.9 % (11.5-17.5); White Blood Count 7.5 K/mm3 (4.8-10.8)
[2021-12-17 08:06] LABS: Ammonia 35 umol/L (9-30)
[2021-12-17 08:28] LABS: Chloride 107 mmol/L (98-107); Potassium 3.8 mmoL/L (3.5-5.1); Sodium 139 mmol/L (136-145)
[2021-12-17 08:30] LABS: Blood Urea Nitrogen 14 mg/dl (7-17); Estimated Glomerular Filt Rate 63 ml/min (>60); GFR (African American) 76 ML/MIN (>60)
[2021-12-17 08:31] LABS: Alanine Aminotransferase 53 U/L (12-78); Albumin Level 3.2 g/dl (3.5-5.0); Alkaline Phosphatase 305 U/L (38-126); Anion Gap 8.8 mEq/L (5-15); Aspartate Amino Transferase 82 U/L (14-36); Bilirubin,Total 2.8 mg/dl (0.2-1.3); Calcium 8.9 mg/dl (8.4-10.2); Carbon Dioxide 27 mmol/L (22.0-30.0); Globulin 3.2 g/dL (1.3-3.2); Glucose 98 mg/dl (74-100); Magnesium 1.6 mg/dl (1.6-2.3); Total Protein,Serum 6.4 g/dl (6.3-8.2)
[2021-12-17 10:36] LABS: Appearance,Urine CLEAR (Clear); Bilirubin,Urine Negative (Negative); Blood, Urine TRACE-I (Negative); Color,Urine AMBER (Yellow); Glucose,Urine (UA) Negative (Negative); Ketones,Urine Negative (Negative); Leukocyte Esterase,Urine TRACE (Negative); Nitrate,Urine POSITIVE (Negative); Protein,Urine Negative (Negative); Specific Gravity, Urine >= 1.030 (1.005-1.030)
[2021-12-17 10:53] LABS: Bacteria,Urine 3+ /lpf; Calcium Oxalate Crystals,Urine Trace /lpf
== END ==
PROVIDERS: PCP Family Medicine; Visit Provider Physician Assistant
DX: D69.6 Thrombocytopenia, unspecified (principal); R30.0 Dysuria; E83.42 Hypomagnesemia; K75.81 Nonalcoholic steatohepatitis (NASH)
CPT/HCPCS: 36415; 80053; 81001; 82140; 83735; 85025; 87086

== ENCOUNTER → 2021-12-24 16:38 | Outpatient (CLI) | payer MEDICARE, SELFPAY ==
[2021-12-24 17:32] LABS: Phosphorous 3.5 mg/dl (2.5-4.5)
== END ==
PROVIDERS: PCP Family Medicine; Visit Provider Physician Assistant
DX: E83.39 Other disorders of phosphorus metabolism (principal)
CPT/HCPCS: 36415; 84100

== ENCOUNTER → 2022-01-05 10:43 | Outpatient (CLI) | payer MEDICARE, SELFPAY ==
[2022-01-05 11:21] LABS: Hematocrit 40.2 % (37.0-47.0); Hemoglobin 12.7 g/dL (12.2-16.2); Mean Corpuscular HGB Conc 31.5 g/dL (31.8-35.4); Mean Corpuscular Hemoglobin 34.5 pg (27.0-31.2); Mean Corpuscular Volume 109.6 fl (81-99); Platelet Count 108 K/mm3 (142-424); Red Blood Count 3.67 M/mm3 (4.20-5.40); Red Cell Distribution Width 16.6 % (11.5-17.5); White Blood Count 4.6 K/mm3 (4.8-10.8)
[2022-01-05 11:26] LABS: Chloride 108 mmol/L (98-107); Potassium 4.7 mmoL/L (3.5-5.1); Sodium 138 mmol/L (136-145)
[2022-01-05 11:29] LABS: Alanine Aminotransferase 41 U/L (12-78); Albumin Level 3.3 g/dl (3.5-5.0); Alkaline Phosphatase 228 U/L (38-126); Anion Gap 6.7 mEq/L (5-15); Aspartate Amino Transferase 72 U/L (14-36); Bilirubin,Total 3.3 mg/dl (0.2-1.3); Blood Urea Nitrogen 14 mg/dl (7-17); Calcium 9.4 mg/dl (8.4-10.2); Carbon Dioxide 28 mmol/L (22.0-30.0); Estimated Glomerular Filt Rate 63 ml/min (>60); GFR (African American) 76 ML/MIN (>60); Globulin 3.2 g/dL (1.3-3.2); Glucose 104 mg/dl (74-100); Total Protein,Serum 6.5 g/dl (6.3-8.2)
[2022-01-05 11:38] LABS: Phosphorous 3.5 mg/dl (2.5-4.5)
[2022-01-05 11:42] LABS: INR 1.14 (0.9-1.1); Prothrombin Time 12.8 seconds (10.1-12.5)
[2022-01-06 08:15] LABS: Alpha-1-Antitrypsin 111 mg/dL (101-187)
== END ==
PROVIDERS: PCP Physician Assistant; Referring Provider Nurse Practitioner Acute Care; Visit Provider Nurse Practitioner
DX: R29.6 Repeated falls (principal); R42 Dizziness and giddiness; Z86.79 Personal history of other diseases of the circulatory system; Z87.898 Personal history of other specified conditions
CPT/HCPCS: 36415; 80053; 82103; 82105; 84100; 85014; 85018; 85048; 85049; 85610; 93270

== ENCOUNTER → 2022-01-11 08:21 | Outpatient (CLI) | payer MEDICARE, SELFPAY ==
--- NOTE | 2022-01-11 08:24 | US_ITS ---
FINAL REPORT CLINICAL HISTORY: CIRRHOSIS OF LIVER W/ ASCITES, UNSPECIFIED HEPATIC CIRRHOSIS; DELGADO FINDINGS: Sonographic images of the abdomen were obtained. There is coarse hepatic echotexture with irregular contour consistent with cirrhosis. There is hepatofugal flow in the portal vein. Probable sludge is identified. There is no evidence of biliary ductal dilatation. The common hepatic duct measures 3 mm, which is within normal limits. Limited images of the pancreas are unremarkable. The spleen size is normal. The right kidney measures 9.1 cm in length. The left kidney measures 10.9 cm in length. There is normal renal echogenicity. There is no evidence of hydronephrosis. The aorta has an unremarkable appearance. The IVC is somewhat dilated. IMPRESSION: Findings consistent with cirrhosis with hepatofugal flow in the portal vein. Probable sludge. Reviewed, Interpreted and Dictated by Kenneth Bland III, MD Transcribed by Jaclyn Coelho Authenticated and [facility]
== END ==
PROVIDERS: PCP Physician Assistant; Visit Provider Nurse Practitioner Acute Care
DX: K74.60 Unspecified cirrhosis of liver (principal); R18.8 Other ascites; K72.90 Hepatic failure, unspecified without coma
CPT/HCPCS: 76700

== ENCOUNTER → 2022-07-13 08:20 | Outpatient (CLI) | payer MEDICARE, SELFPAY ==
--- NOTE | 2022-07-13 08:23 | US_ITS ---
FINAL REPORT TECHNIQUE: Sonographic images of the right upper quadrant were obtained. CLINICAL HISTORY: DELGADO,CIRRHOSIS OF LIVER FINDINGS: Sonographic images of the right upper quadrant were obtained in the longitudinal and transverse planes. PANCREAS: Unremarkable. LIVER: Nodular in contour and coarsening and echotexture. No focal hepatic lesion. No intrahepatic biliary ductal dilatation. GALLBLADDER: Small layering gallstones. No gallbladder wall thickening or pericholecystic fluid. COMMON DUCT: 3 mm. Normal for age. RIGHT KIDNEY: The right kidney measures 8.4 cm. There is no hydronephrosis, mass, or stone. FREE FLUID: None. IMPRESSION: 1. Nodular liver consistent with cirrhosis. No focal lesions. 2. Gallstones within the gallbladder. Reviewed, Interpreted and Dictated by Mary Jane Grace MD Transcribed by Teena Morales Authenticated and . [facility]
== END ==
PROVIDERS: PCP Family Medicine; Visit Provider Family Medicine
DX: K75.81 Nonalcoholic steatohepatitis (NASH) (principal); K74.60 Unspecified cirrhosis of liver
CPT/HCPCS: 76705

== ENCOUNTER 2022-07-14 10:05 | Emergency (ER) | payer MEDICARE, SELFPAY ==
[2022-07-14 10:07] VITALS: BP 116/65; PULSE 86; RESP 16; TEMP 36.8; O2SAT 97; BMI 25.0
[2022-07-14 10:16] VITALS: BMI 32.2
[2022-07-14 10:46] LABS: Basophils # 0.1 K/mm3 (0-0.2); Basophils % 1.2 % (0.1-2.0); Eosinophils # 0.1 K/mm3 (0.0-0.4); Eosinophils % 1.3 % (0.1-12.0); Hematocrit 43.6 % (37.0-47.0); Hemoglobin 13.9 g/dL (12.2-16.2); Lymphocytes # 2.1 K/mm3 (0.7-4.5); Lymphocytes % 36.9 % (10-50); Mean Corpuscular Hemoglobin 33.3 pg (27.0-31.2); Mean Corpuscular Volume 104.2 fl (81-99); Mean Platelet Volume 8.2 fl (7.4-10.4); Monocytes # 0.7 K/mm3 (0.1-1.0); Monocytes % 12.7 % (1.7-9.3); Neutrophils # 2.7 K/mm3 (1.8-7.8); Neutrophils % 47.9 % (37.0-80.0); Platelet Count 118 K/mm3 (142-424); Red Blood Count 4.18 M/mm3 (4.20-5.40); Red Cell Distribution Width 15.7 % (11.5-17.5); White Blood Count 5.6 K/mm3 (4.8-10.8)
[2022-07-14 10:54] LABS: Alanine Aminotransferase 39 U/L (12-78); Albumin Level 3.6 g/dl (3.5-5.0); Alkaline Phosphatase 220 U/L (38-126); Anion Gap 11.3 mEq/L (5-15); Aspartate Amino Transferase 69 U/L (14-36); Blood Urea Nitrogen 17 mg/dl (7-17); Calcium 8.5 mg/dl (8.4-10.2); Carbon Dioxide 21 mmol/L (22.0-30.0); Chloride 113 mmol/L (98-107); Creatinine Clearance Estimated 72 mL/min (50-200); Estimated Glomerular Filt Rate 63 ml/min (>60); GFR (African American) 76 ML/MIN (>60); Globulin 3.6 g/dL (1.3-3.2); Glucose 99 mg/dl (74-100); Potassium 4.3 mmoL/L (3.5-5.1); Sodium 141 mmol/L (136-145); Total Protein,Serum 7.2 g/dl (6.3-8.2)
[2022-07-14 10:59] LABS: C-Reactive Protein 20.8 mg/L (0-4)
[2022-07-14 11:13] LABS: Procalcitonin 0.145 ng/mL (0.0-2.0)
[2022-07-14 11:30] VITALS: BP 114/69; PULSE 84; O2SAT 99
[2022-07-14 11:31] LABS: Coronavirus 19, PCR Not Detected (NotDetected); Influenza A, PCR Not Detected (NotDetected); Influenza B, PCR Not Detected (NotDetected)
--- NOTE | 2022-07-14 11:38 | HMH.EDGENADL ---
Discharge Plan Disposition Patient Disposition: Home, Self-Care Condition: Fair Prescriptions Prescriptions: New lactulose 10 gram/15 mL solution 10 g PO DAILY Qty: 946 0RF No Action Xifaxan 550 mg tablet 550 mg PO BID rosuvastatin [Crestor] 5 mg tablet 5 mg PO DAILY budesonide-formoterol [Symbicort] 160-4.5 mcg/actuation HFA aerosol inhaler 2 puff INHALATION BID furosemide [Lasix] 20 mg tablet 20 mg PO Q OTHER DAY venlafaxine 75 mg capsule,extended release 24hr 75 mg PO DAILY lactulose 10 gram/15 mL solution 10 g PO DAILY spironolactone [Aldactone] 50 mg tablet 100 mg PO DAILY docusate sodium 100 mg capsule 100 mg PO BID Qty: 60 0RF potassium chloride 10 mEq capsule, extended release 10 meq PO hydrocortisone 2.5 % cream with perineal applicator 1 applic RC propranolol 10 mg tablet 10 mg PO BID Qty: 60 5RF levothyroxine 75 MCG tablet 50 mcg PO DAILY montelukast 10 MG tablet 10 mg PO PM olanzapine 2.5 mg tablet 5 mg PO DAILY Referrals Follow up/Referrals: Iftikhar Aguirre MD [Primary Care Provider] - See instructions Clinical Impressions Clinical Impression: Encephalopathy, hepatic Instructions Patient Instructions: DI for Hepatic Encephalopathy Discharge ED Provider: Sudheer Kirkland General Adult HPI General Chief complaint: Altered Mental Status Stated complaint: ams Time Seen by Provider: 07/14/22 10:10 Mode of Arrival: Wheelchair Source of Information: Relative Limitations: No Limitations Description of Symptoms (Recalled from ER Triage Doc. by RN): pt comes in for confusion. pt was scheduled to have egd today but when daughter went to pick pt up she noticed that she was confused. History of Present Illness HPI narrative: Patient is a 66-year-old female with a past medical history of Villalobos cirrhosis, recurrent urinary tract infection, paroxysmal atrial fibrillation who presents with concern for confusion. Patient states that she is supposed to go for an EGD today when her daughter went to go pick her up she was acting confused. She says that she recently stopped taking her lactulose. She was having EGD to evaluate for worsening of her esophageal varices. She says that it has been a couple months and she said a urinary tract infection. She denies any dysuria. Denies any abdominal pain. Denies any shortness of breath. Denies any sputum production. Denies any falls. Related Data Home Medications Medication Instructions Recorded Confirmed levothyroxine 75 mcg tablet 50 mcg PO DAILY thyriod 11/14/17 06/30/22 montelukast 10 mg tablet 10 mg PO PM allergies 11/14/17 06/30/22 budesonide-formoterol HFA 160 2 puff inhalation BID Asthma 09/08/20 06/30/22 mcg-4.5 mcg/actuation aerosol inhaler (Symbicort) rifaximin 550 mg tablet (Xifaxan) 550 mg PO BID cirrhosis 09/08/20 06/30/22 rosuvastatin 5 mg tablet (Crestor) 5 mg PO DAILY Cholesterol 09/08/20 06/30/22 furosemide 20 mg tablet (Lasix) 20 mg PO Q OTHER DAY 06/12/21 06/30/22 lactulose 10 gram/15 mL oral 10 g PO DAILY 06/12/21 06/30/22 solution venlafaxine 75 mg capsule,extended 75 mg PO DAILY 06/12/21 06/30/22 release 24 hr spironolactone 50 mg tablet 100 mg PO DAILY 01/05/22 06/30/22 (Aldactone) hydrocortisone 2.5 % topical cream 1 applic ME 01/21/22 06/30/22 with perineal applicator olanzapine 2.5 mg tablet 5 mg PO DAILY bipolar 01/21/22 06/30/22 potassium chloride 10 mEq 10 meq PO 01/21/22 06/30/22 capsule,extended release Previous Rx's Medication Instructions Recorded docusate sodium 100 mg capsule 100 mg PO BID #60 caps 12/31/21 propranolol 10 mg tablet 10 mg PO BID #60 tabs 02/02/22 lactulose 10 gram/15 mL oral 10 g (15 mL) PO DAILY #946 mL 07/14/22 solution Allergies Allergy/AdvReac Type Severity Reaction Status Date / Time Penicillins Allergy Mild Verified 06/30/22 10:19 Sulfa (Sulfonamide Allergy Unknown
[2022-07-14 11:40] LABS: Ammonia 115 umol/L (9-30)
[2022-07-14 12:21] LABS: Microscopic, Urine URINE MICROSCOPIC (MICROSCOPIC)
[2022-07-14 12:25] LABS: Appearance,Urine CLEAR (Clear); Blood, Urine 1+ (Negative); Color,Urine DK YELLOW (Yellow); Glucose,Urine (UA) Negative (Negative); Ketones,Urine 1+ (Negative); Leukocyte Esterase,Urine Negative (Negative); Nitrate,Urine Negative (Negative); Protein,Urine TRACE (Negative); Specific Gravity, Urine 1.025 (1.005-1.030)
[2022-07-14 12:30] VITALS: BP 133/75; PULSE 89; O2SAT 99
[2022-07-14 12:41] LABS: Bilirubin,Urine Negative (Negative)
[2022-07-14 12:52] LABS: Bacteria,Urine Trace /lpf; Squamous Epithelial Cell,Urine Occasional #/hpf (0-5); WBC,Urine Occasional #/hpf (0-3)
[2022-07-14 14:32] VITALS: BP 156/78; PULSE 72; RESP 16; TEMP 36.4
== END 2022-07-14 14:36 | disposition home or self-care (01) ==
PROVIDERS: Emergency Provider Student in an Organized Health Care Education/Training Program; PCP Family Medicine
DX: K76.82 Hepatic encephalopathy (principal); K75.81 Nonalcoholic steatohepatitis (NASH); Z87.440 Personal history of urinary (tract) infections; I48.0 Paroxysmal atrial fibrillation; F31.9 Bipolar disorder, unspecified; I50.9 Heart failure, unspecified; Z82.49 Family history of ischemic heart disease and other diseases of the circulatory system; Z80.9 Family history of malignant neoplasm, unspecified; Z81.8 Family history of other mental and behavioral disorders; Z83.49 Family history of other endocrine, nutritional and metabolic diseases; Z87.891 Personal history of nicotine dependence; Z20.822 Contact with and (suspected) exposure to COVID-19
CPT/HCPCS: 80053; 81001; 82140; 84145; 85025; 86140; 87086; 99285; C9803; U0003; U0005

== ENCOUNTER 2022-08-18 08:01 | Day surgery (SDC) | payer MEDICARE, SELFPAY ==
[2022-07-21 13:30] VITALS: BMI 32.2
[2022-08-18 08:35] VITALS: BP 143/77; PULSE 70; RESP 17; TEMP 36.5; O2SAT 96
[2022-08-18 09:07] VITALS: O2SAT 96
--- NOTE | 2022-08-18 09:08 | P.PN_ITS ---
[facility] Disclaimer: The information contained in this section may have been updated after the patient was seen, as this information can be updated by other users. Medical History History of depressed bipolar disorder History of depression Hx of cardiac arrhythmia Hx of congestive heart failure Hx of edema Hx of thyroid disease Surgical History No significant past surgical history Family History Other Family history of cancer Family history of depression Family history of hyperthyroidism Family history of hypothyroidism Family history of stroke Social History Smoking Status: Former smoker second hand exposure: Yes alcohol intake: never substance use type: denies use current occupational status: retired Travel in the last 8 weeks: None household members: none housing: house lives independently: Yes marital status: single education level: high school current occupational exposures/hazards: No caffeine: Yes special semaj needs: No agree to transfusion: No do you feel safe at home: Yes victim of physical abuse: No victim of emotional abuse: No victim of sexual abuse: No would you like helpful sources: No [facility] Anesthesia Checklist Patient Identification Patient Identification: Arm Band Structural Data Admitted From: Home Planned Operative Procedure/s: EGD Consent for Planned Operative Procedure(s) Verified: Yes Verified Documents: Surgical Consent and History and Physical NPO Status Verified Time NPO: 00:00 Additional verifications Anesthesia Reactions: No Hx Blood Transfusions: No Blood Transfusion Reaction: No Airway Assessment C-Spine Mobility Assessed: Yes TMJ Mobility Assessed: Yes Dentition: Good Dentition Neurological Assessment Level of Consciousness: Awake and Alert Anesthesia Plan Anesthesia Risk discussed: Yes Anesthesia Plan: Verified ASA Class: II Anesthesia Type: MAC
[2022-08-18 09:20] VITALS: BP 100/62; PULSE 75; RESP 14; TEMP 36.3; O2SAT 95
--- NOTE | 2022-08-18 09:20 | HMH.SCOPE ---
Procedure: Date: 08/18/22 Patient Date of :: 1955 Procedure Performed:: EGD Indications:: The patient is a 66 year old with DELGADO and cirrhosis. She has a history of PSE treated with xifaxan and lactulose. Patient is managed thru [facility] Performing Provider:: Earle James MD Referring Provider:: Giancarlo Aguirre MD Sedation:: See RN records Procedure:: The gastroscope was gently passed through the incisoral orifice into the oral cavity and under direct visualization the esophagus was intubated. The endoscope was passed down the esophagus, through the stomach, and into the duodenum. Color, texture, mucosa, and anatomy of the esophagus, stomach, and duodenum were carefully examined with the scope. Findings:: Oropharynx: normal Esophagus: Small papule/lesion at 25 cm. Possible squamous papilloma. Removed with cold snare polypectomy EG Junction: intact at 40 cm Cardia: normal Fundus: normal Body: normal Antrum: normal Duodenal bulb: normal Duodenum (second and third portion): normal Recommendations:: Await pathology results Repeat EGD in 3 years for gastroesophageal variceal screening Follow up with [facility] for management of cirrhosis Complications:: None Estimated blood obtained (mL): 0
[2022-08-18 09:30] VITALS: BP 106/76; PULSE 70; RESP 17; O2SAT 96
[2022-08-18 09:40] VITALS: BP 111/60; PULSE 66; RESP 17; O2SAT 98
[2022-08-18 10:05] VITALS: BP 108/64; PULSE 66; RESP 17; O2SAT 98
== END 2022-08-18 10:10 | disposition home or self-care (01) ==
PROVIDERS: PCP Family Medicine; Visit Provider Internal Medicine
PROC: 0DJ08ZZ Inspection of Upper Intestinal Tract, Via Natural or Artificial Opening Endoscopic (ICD-10-PCS; CPT 43235; principal; 2022-08-18 09:00)
DX: K75.81 Nonalcoholic steatohepatitis (NASH) (principal); K74.60 Unspecified cirrhosis of liver; K20.90 Esophagitis, unspecified without bleeding; Z79.899 Other long term (current) drug therapy
CPT/HCPCS: 43251; 88305

== ENCOUNTER → 2022-09-03 09:26 | Outpatient (CLI) | payer MEDICARE, SELFPAY ==
--- NOTE | 2022-09-03 09:31 | XR_ITS ---
FINAL REPORT CLINICAL HISTORY: left knee pain x yrs. FINDINGS: LEFT KNEE 3 views of the left knee were obtained. There is no acute fracture or dislocation. There are mild and moderate degenerative changes with medial compartment joint space narrowing. There are soft tissue calcifications seen. There is a small joint effusion. IMPRESSION: Degenerative changes and small joint effusion without acute bony abnormality. Reviewed, Interpreted and Dictated by Kenneth Bland III, MD Transcribed by Cele Chaves Authenticated and [facility]
== END ==
PROVIDERS: PCP Family Medicine; Visit Provider Orthopaedic Surgery
DX: M17.0 Bilateral primary osteoarthritis of knee (principal)
CPT/HCPCS: 73562

== ENCOUNTER → 2022-09-29 13:12 | Outpatient (CLI) | payer MEDICARE, SELFPAY ==
--- NOTE | 2022-09-29 13:40 | XR_ITS ---
FINAL REPORT TECHNIQUE: Chest PA & Lateral CLINICAL HISTORY: pre op, cough COMPARISON: 07/07/2020 FINDINGS: 2 views of the chest were performed. The heart size is at the upper limits of normal. The mediastinum is within normal limits. There is no acute cardiopulmonary process. There are no pleural effusions. There is no pneumothorax. The bony thorax appears intact. IMPRESSION: No acute cardiopulmonary process. Reviewed, Interpreted and Dictated by Alexander Collado MD Transcribed by Teena Morales Authenticated and [facility]
--- NOTE | 2022-09-29 14:13 | ECG_ITS ---
APPROVED REPORT Exam: Resting ECG HR:78 bpm ECG Measurements Heart Rate 78 AXES ID 176 P 3 QRSd 89 QRS 22 QT 369 T 30 QTc 402 Conclusion SINUS RHYTHM WITH SINUS ARRHYTHMIA NORMAL ECG UNCONFIRMED REPORT Electronically signed by : Virgilio Morel MD 09/29/2022 17:34:54
[2022-09-29 14:23] LABS: Basophils % 0.7 % (0.1-2.0); Eosinophils % 0.3 % (0.1-12.0); Hemoglobin 11.3 g/dL (12.2-16.2); Lymphocytes % 36.8 % (10-50); Mean Corpuscular HGB Conc 31.4 g/dL (31.8-35.4); Mean Corpuscular Hemoglobin 33.5 pg (27.0-31.2); Mean Corpuscular Volume 106.7 fl (81-99); Mean Platelet Volume 8.2 fl (7.4-10.4); Monocytes # 0.9 K/mm3 (0.1-1.0); Monocytes % 16.7 % (1.7-9.3); Neutrophils # 2.4 K/mm3 (1.8-7.8); Neutrophils % 45.5 % (37.0-80.0); Platelet Count 110 K/mm3 (142-424); Red Blood Count 3.38 M/mm3 (4.20-5.40); Red Cell Distribution Width 16.7 % (11.5-17.5); White Blood Count 5.3 K/mm3 (4.8-10.8)
[2022-09-29 16:40] LABS: Alanine Aminotransferase 40 U/L (12-78); Alkaline Phosphatase 203 U/L (38-126); Aspartate Amino Transferase 45 U/L (14-36); Blood Urea Nitrogen 20 mg/dl (7-17); Calcium 8.7 mg/dl (8.4-10.2); Carbon Dioxide 26 mmol/L (22.0-30.0); Chloride 104 mmol/L (98-107); Estimated Glomerular Filt Rate 63 ml/min (>60); GFR (African American) 76 ML/MIN (>60); Globulin 3.1 g/dL (1.3-3.2); Glucose 88 mg/dl (74-100); Sodium 133 mmol/L (136-145); Total Protein,Serum 6.1 g/dl (6.3-8.2)
== END ==
PROVIDERS: PCP Family Medicine; Visit Provider Orthopaedic Surgery
DX: J02.9 Acute pharyngitis, unspecified (principal); M17.0 Bilateral primary osteoarthritis of knee; Z01.818 Encounter for other preprocedural examination
CPT/HCPCS: 36415; 71046; 80053; 85025; 93005

== ENCOUNTER 2022-10-05 06:28 | Observation (INO) | payer MEDICARE, SELFPAY ==
[2022-09-29 11:09] VITALS: BMI 31.6
--- NOTE | 2022-09-29 13:13 | CARE MANAGER ---
Addendum entered by Beatrice Babb RN 10/06/22 15:59: Patient discharging to [facility] today. [facility] van will provide transportation as long as patient is ready by 1630, Luisa notified. Addendum entered by Beatrice Babb RN 10/06/22 12:21: Patient has an insurance authorization for [facility]. Patient should discharge this afternoon following placement of loop recorder. CM will continue to follow. Addendum entered by Beatrice Babb RN 10/05/22 15:32: Met with patient at bedside to discuss discharge planning. Patient's clinical faxed to [facility], and I spoke with Gaye who states that she has a bed and will start an authorization with insurance once an H&P has been completed. CM will continue to monitor. Addendum entered by Ana Walter RN 09/29/22 13:23: Patient called back and stated she wanted to go to [facility]. I asked her for a back up facility or two to consider in case [facility] does not have an available bed. She was not sure and asked me to call her daughter Alma Tucker, . I called and left a message. Original Note: Attempted to contact patient to discuss discharge plans following LTKR. Left VM message. Patient had told surgeon she would like to go to [facility]. CHRISTIANO Duque
[2022-10-05] VITALS (23 sets, daily range): BP systolic 107–143; BP diastolic 51–82; PULSE 62–87; RESP 14–18; TEMP 36.3–43; O2SAT 92–99
[2022-10-05 06:47] LABS: Coronavirus 19, PCR Not Detected (NotDetected); Influenza A, PCR Not Detected (NotDetected); Influenza B, PCR Not Detected (NotDetected)
--- NOTE | 2022-10-05 08:50 | EXP.ANES.CKL ---
[facility] Disclaimer: The information contained in this section may have been updated after the patient was seen, as this information can be updated by other users. Medical History Asthma Cirrhosis GERD (gastroesophageal reflux disease) History of depressed bipolar disorder History of depression Hx of cardiac arrhythmia Hx of congestive heart failure Hx of edema Hx of thyroid disease Surgical History History of bladder repair surgery History of cataract surgery History of failed repair of rotator cuff History of hernia repair History of hysterectomy History of lithotripsy History of sinus surgery No significant past surgical history Family History Other Family history of cancer Family history of depression Family history of hyperthyroidism Family history of hypothyroidism Family history of stroke Social History Smoking Status: Former smoker second hand exposure: Yes alcohol intake: never substance use type: denies use current occupational status: retired Travel in the last 8 weeks: None household members: none housing: house lives independently: Yes marital status: single education level: high school current occupational exposures/hazards: No caffeine: Yes special semaj needs: No agree to transfusion: No do you feel safe at home: Yes victim of physical abuse: No victim of emotional abuse: No victim of sexual abuse: No would you like helpful sources: No [facility] Anesthesia Checklist Patient Identification Patient Identification: Arm Band Structural Data Admitted From: Home Planned Operative Procedure/s: Left Total Knee Arthroplasty Consent for Planned Operative Procedure(s) Verified: Yes Verified Documents: Surgical Consent and History and Physical NPO Status Verified Time NPO: 00:00 Additional verifications Anesthesia Reactions: No Hx Blood Transfusions: No Blood Transfusion Reaction: No Airway Assessment C-Spine Mobility Assessed: Yes TMJ Mobility Assessed: Yes Dentition: Good Dentition (upper partials removed) Neurological Assessment Level of Consciousness: Awake, Alert and Appropriate Anesthesia Plan Anesthesia Risk discussed: Yes Anesthesia Plan: Verified ASA Class: III Anesthesia Type: MAC w/Spinal (With Left Adductor Canal Nerve Block)
--- NOTE | 2022-10-05 09:26 | HMH.PHAINT1 ---
Pharmacy Intervention Comments: MEDICATION RECONCILIATION COMPLETED ON PATIENT USING EXTERNAL FILL HISTORY FROM PHARMACY AND LIST FROM [facility] OFFICE. -RAJAT MARTID
--- NOTE | 2022-10-05 09:35 | EXP.OP.NOTE ---
Date of procedure: 10/05/22 Pre-op Diagnosis:: Left knee osteoarthritis Post-op Diagnosis:: Left knee osteoarthritis Procedure performed:: Left total knee arthroplasty Surgeon:: Jose Alberto Lew MD Otm Consultant(s):: GLORIA Zavaleta MACHINE GRINDER:: Edgardo Morse Anesthesia: MAC, regional, local and spinal Estimated blood loss (mL): 5 Clinical Note:: Gela is a very pleasant 67-year-old female with activity limiting knee pain secondary to osteoarthritis that is affecting her quality of life. Left knee is worse. She has failed conservative treatment measures including cortisone injections and Monovisc injection last summer. She ambulates with cane assist and lives at home alone. Bilateral knee x-rays September 2021 revealed severe tricompartmental degenerative changes in varus knees with complete loss of medial joint space and marginal osteophyte formation. We discussed all the risks, benefits and alternatives to left total knee arthroplasty. She agreed to proceed and surgical consent form was signed. Operative findings:: Left knee severe tricompartmental degenerative changes with varus deformity. Operative note:: The patient was seen in the preoperative holding area. The left knee was marked to confirm the correct operative site. She was seen by anesthesia. She received Ancef 2 g IV prophylactic antibiotics within 1 hour of incision time. She also received 1 g of TXA just prior to the case and as we are closing to help minimize bleeding. She was brought back to the OR. Spinal was performed without difficulty. She was placed in the supine position and a bump was placed underneath the left hip. Nonsterile tourniquet was applied to the left thigh. The left lower extremity was prepped and draped in the usual sterile fashion. Timeout was performed to confirm left total knee arthroplasty. The left lower extremity was exsanguinated with an Esmarch. Tourniquet was inflated to 300 mmHg. With the knee flexed a midline incision was made with a 10 blade scalpel. Full-thickness medial lateral flaps were elevated. We then made a medial parapatellar arthrotomy with a fresh 10 blade scalpel. The patella fat pad and anterior femoral fat pads were excised. Marginal osteophytes were removed. A medial release was performed with the Bovie electrocautery. Z retractors were placed medially and laterally. The distal femur was then drilled and the intramedullary distal femoral cutting guide was pinned in place set at a 5 degree valgus cut for a 1 cm distal femoral cut. This cut was made with the oscillating saw. The femur was then sized to a size 3 set at 3 degrees of external rotation. The 4-in-1 cutting guide was pinned in place. Anterior and posterior cuts were made as were the chamfer cuts. Cut bone was removed. We then turned our attention to the tibia. The tibia was subluxed anteriorly. PCL retractor was placed as were medial and lateral Hohmann retractors. Using the extramedullary tibial cutting guide set at a 3 degree posterior slope we removed 5 mm of bone from the low medial side and a centimeter from the high lateral side with the oscillating saw. Medial and lateral menisci were then excised. With the 9 mm block there was full flexion and extension with good stability and excellent alignment. The tibia was sized to a size 2 tibial tray centered off the medial third of the tibial tubercle. The tray was pinned in place and then we impacted the tibial punch. We then placed the size 3 trial femur and made the box cut with the reamer and punch. We then trialed with a size 3 femur, 2 tibia and 9 poly. With the trial components in place we achieved full extension and flexion with excellent alignment and stable throughout. We then turned our attention to the patella. Patella was sized to 18 mm in thickness so we made a 7 mm patellar cut with the reciprocal saw. We then made the patellar drill holes and a 29 thin trial button was placed. There was excellent patell
--- NOTE | 2022-10-05 09:41 | EXP.ANES.I ---
[facility] Anesthesia Record Part I Anesthesia Record I Intake, IV Amount: 1,600 Estimated blood loss (mL): 10 Urine output (mL): 0 Blood Products used (#): none Blood Pressure: 116/66 SaO2: 98 Pulse Rate: 86 Respiratory Rate: 16 Temperature: 98.3 F Patient is:: Drowsy and Stable Stable to PACU at:: 09:40 Comments:: Pt's HR became irregular and tachycardic around 0905. Planned on EKG in recovery room, but once in PACU, pt's HR is in 80's and regular rhythm. Updated Dr. Ajay Milligan.
--- NOTE | 2022-10-05 09:43 | XR_ITS ---
FINAL REPORT CLINICAL HISTORY: TKA COMPARISON: 09/03/2022 FINDINGS: Left knee Two views were obtained. There is no acute fracture or dislocation. Patient is status post knee arthroplasty. There is no evidence of complication or soft tissue air. IMPRESSION: Status post total knee arthroplasty. Reviewed, Interpreted and Dictated by Kenneth Bland III, MD Transcribed by Jaclyn Coelho Authenticated and [facility]
--- NOTE | 2022-10-05 13:55 | HMH.PTEV ---
Physical Therapy Evaluation Rehab PT IP Evaluation Start: 10/05/22 09:52 Freq: ONCE Status: Active Protocol: Document 10/05/22 13:50 PHORNE (Rec: 10/05/22 13:55 PHORNE [id number]) Subjective/History History History 67 yowf adm to [facility] for L TKA due to OA. She reports she lives alone, no steps to enter the home, and she uses a cane for ambulation at baseline. Subjective Subjective Pt c/o pain in the L knee as expected post-op. Rehab PT IP Eval Objective Appearance Patient Behavior Appropriate Patient Orientation Person,Place,Time Difficulty following instructions none Speech Pattern Clear Ambulation Patient Able to Ambulate Yes Ambulation Observation IP General Gait Pattern Observation Antalgic Gait,Shuffling Step, Decrease Stride Lngth (R), Decrease Stride Lngth (L) Ambulation Distance (feet) 3 Ambulation Assistive Device None Ambulation Ability Minimal x 2 (25% assist) Balance Ability to Arise Able, uses arms to help Sitting Balance Leans or slides in chair Dynamic Sitting Balance Ability Fair Dynamic Standing Balance Ability Poor Transfers Bed Transfer Ability Minimal x 2 (25% assist) Chair Transfer Ability Minimal x 2 (25% assist) Sit to Stand Bed Transfer Ability Minimal x 2 (25% assist) Sit to Stand Chair Transfer Ability Minimal x 2 (25% assist) Rehab PT IP prob,goals,plan Problems Date of Evaluation: 10/05/22 PT IP Problems Bed Mobility,Transfers,Gait Rehab Potential Rehab Potential Good Equipment Needs Assistive Devices Rolling / Wheeled Walker Plan PT Intervention Plan Bed Mobility,Transfers,Gait, Therapeutic Exercise PT Plan Frequency BID Duration LOS Discharge Goals Bed Transfer Ability Contact Guard/Hand Hold Sit to Stand Chair Transfer Ability Minimal x 1 (25% assist) Ambulation Assistive Device Rolling Walker Ambulation Distance (feet) 20 Discharge Plan PT Discharge Plan Pt is currently most appropriate for rehab placement once medically stable for d/c. If she returns home without skilled intervention she will be at increased risk of falls, injury, wounds, or . G -code Required No Eval Complexity Eval Charge Codes
--- NOTE | 2022-10-05 13:57 | HMH.OTEV ---
OT Inpatient Evaluation Rehab OT IP Evaluation Start: 10/05/22 09:52 Freq: ONCE Status: Active Protocol: Document 10/05/22 13:49 [facility] (Rec: 10/05/22 13:56 [facility] [id number]) Rehab OT IP Assessment Subjective History Pt oriented x 3 on arrival. Pt agreeable to engage in therapy session. Pt admitted on 10/05/22 due to left TKA. Pt lived alone prior to being in the hospital. Pt claimed she was independent with all ADLs such as feeding, bathing, and dressing. She used a cane during ambulation. She was able to cook small meals in microwave. Her daughter came often to cook, grocery shop, and do laundry. She also had a cleaning lady come. Pt no longer drove. Subjective Yes, I need some help. Objective Patient Orientation Person,Place,Birthday Upper Extremity Gross ROM WFL Bed Mobility bed mobility-scooting,bed mobility - supine/sit,bed mobility - rolling Assist Level Minimal x 2 (25% assist) Transfer Training Sit/Stand/Step Transfer Assist Level Minimal x 2 (25% assist) Chair Transfer Ability Minimal x 2 (25% assist) Chair Transfer Technique Sit to/from Ambulatory Chair Transfer Assistive Devices Rolling Walker Rehab OT IP prob,goals,plan Problems Date of Evaluation: 10/05/22 OT IP Problems Bed Mobility,Transfers,Balance ,Self care,Safety Rehab Potential Rehab Potential Good Equipment Needs Assistive Devices Rolling / Wheeled Walker Plan OT intervention Plan Bed Mobility,Transfers,Balance ,Self care,Safety,Therapeutic Exercise Discharge Goals Bed Mobility Ability Assistance x1 Sit to Stand Chair Transfer Ability Minimal x 1 (25% assist) Chair Transfer Ability Minimal x 1 (25% assist) Chair Transfer Technique Sit to/from Ambulatory Chair Transfer Assistive Devices Rolling Walker Feeding Ability Assist with Tray Set Up Lower Body Dressing Ability Assistance X1 Upper Body Dressing Ability Standby Assistance Bathing Ability Assistance x1 Performing Toilet Hygiene Ability Assistance X1 Overall Commode/Toilet Transfer Ability Assistance x1 Commode/Toilet Transfer Techniqu
--- NOTE | 2022-10-05 15:02 | EXP.ANES.II ---
[facility] Anesthesia Record Part II Anesthesia Record Part II Discharge Time: 10:00 Destination: Medical Surgical Department PACU nurse assessment reviewed?: Yes Patient Condition:: Good Anesthesia Complications:: None Swallowing reflex intact?: Yes Cyanosis?: No Blood Pressure: 114/73 Pulse Rate: 83 Temperature: 97.9 F Mental Status: Alert & Oriented Pain level:: 0 Nausea and/or vomitting:: None Intake, IV Amount: 0
--- NOTE | 2022-10-05 15:43 | ECG_ITS ---
APPROVED REPORT Exam: Resting ECG HR:64 bpm ECG Measurements Heart Rate 64 AXES OH 210 P 37 QRSd 92 QRS 26 QT 428 T 33 QTc 437 Conclusion SINUS RHYTHM WITH FIRST DEGREE AV BLOCK WITH OCCASIONAL SUPRAVENTRICULAR PREMATURE COMPLEXES LOW QRS VOLTAGE IN PRECORDIAL LEADS [QRS DEFLECTION < 1.0 mV IN CHEST LEADS] ABNORMAL ECG UNCONFIRMED REPORT Electronically signed by : Virgilio Morel MD 10/08/2022 09:37:36
--- NOTE | 2022-10-05 17:18 | EXP.HP ---
History of Present Illness *Admission Date: 10/05/22 *Reason for visit:: Postoperative care after knee surgery *History of present illness: Ms. moe is a 66-year-old female with a history of hyperlipidemia, asthma, allergic rhinitis, arthritis, acid reflux, Villalobos with fatty liver, depression and bipolar disorder who was admitted after left knee surgery by Dr. Lew.She had a left total knee arthroplasty without complications this AM. Case management has been consulted for inpatient rehab at [facility] as the patient lives at home alone and prefers to rehab before being discharged to home. [facility] Disclaimer: The information contained in this section may have been updated after the patient was seen, as this information can be updated by other users. Medical History (Updated 10/05/22 @ 17:33 by Jaclyn Daniels APRN) Asthma Cirrhosis GERD (gastroesophageal reflux disease) History of depressed bipolar disorder History of depression Hx of cardiac arrhythmia Hx of congestive heart failure Hx of edema Hx of thyroid disease Surgical History (Updated 10/05/22 @ 17:33 by Jaclyn Daniels APRN) History of bladder repair surgery History of cataract surgery History of failed repair of rotator cuff History of hernia repair History of hysterectomy History of lithotripsy History of sinus surgery No significant past surgical history Family History Other Family history of cancer Family history of depression Family history of hyperthyroidism Family history of hypothyroidism Family history of stroke Social History Smoking Status: Former smoker second hand exposure: Yes alcohol intake: never substance use type: denies use current occupational status: retired Travel in the last 8 weeks: None household members: none housing: house lives independently: Yes marital status: single education level: high school current occupational exposures/hazards: No caffeine: Yes special semaj needs: No agree to transfusion: No do you feel safe at home: Yes victim of physical abuse: No victim of emotional abuse: No victim of sexual abuse: No would you like helpful sources: No Review of Systems Constitutional Constitutional: Denies fever(s) and Denies headache(s) Eyes Eyes: Denies change in vision ENT Ears, Nose, Mouth, and Throat: Denies dysphagia, Denies otalgia, Denies headache(s) and Denies sore throat *Cardiovascular Cardiovascular: Denies chest pain, Denies dyspnea and Reports irregular heart rhythm (Briefly in recovery atrial for was noted) *Respiratory Respiratory: Denies chest congestion, Denies cough and Denies dyspnea *Gastrointestinal Gastrointestinal: Denies abdominal pain, Reports constipation, Denies diarrhea, Denies dyspepsia, Denies dysphagia, Denies nausea and Denies vomiting Comments: Fatty liver *Genitourinary Genitourinary: Denies difficulty voiding *Musculoskeletal Musculoskeletal: Reports abnormal gait (Had been using a tripod cane at home.) and Reports arthralgias (Left knee) *Neurologic Neurologic: Reports abnormal gait (Had been using a tripod cane at home.), Reports confusion and Denies headache(s) Psychiatric Psychiatric: Reports confusion Meds Home Medications and Allergies Home Medications Medication Instructions Recorded Confirmed Type montelukast 10 mg tablet 10 mg PO PM allergies 11/14/17 10/05/22 History rifaximin 550 mg tablet (Xifaxan) 550 mg PO BID cirrhosis 09/08/20 10/05/22 History rosuvastatin 5 mg tablet (Crestor) 5 mg PO DAILY Cholesterol 09/08/20 10/05/22 History furosemide 20 mg tablet (Lasix) 20 mg PO BID Fluid 06/12/21 10/05/22 History lactulose 10 gram/15 mL oral 10 g PO BID STOMACH 06/12/21 10/05/22 History solution venlafaxine 75 mg capsule,extended 75 mg PO DAILY Depression 06/12/21 10/05/22 History release 24 hr spironolactone 50 m
--- NOTE | 2022-10-05 19:41 | PC.NURSE ---
A&OX4. TOLERATING RA WELL. HAS BEEN UP TO THE CHAIR T/O SHIFT, X2 ASSIST BACK TO BED. PT C/O PAIN TO L KNEE, MEDICATED PER AUG. POLAR PACK IN PLACE. FAMILY HAS BEEN AT BEDSIDE. NO OTHER NEEDS NOTED, VSS.
[2022-10-06] VITALS (10 sets, daily range): BP systolic 104–115; BP diastolic 55–66; PULSE 70–88; RESP 16–18; TEMP 36.4–37; O2SAT 93–99; BMI 33.0
[2022-10-06 06:41] LABS: Basophils % 0.3 % (0.1-2.0); Eosinophils % 0.5 % (0.1-12.0); Hematocrit 35.7 % (37.0-47.0); Hemoglobin 11.2 g/dL (12.2-16.2); Lymphocytes # 1.5 K/mm3 (0.7-4.5); Lymphocytes % 21.9 % (10-50); Mean Corpuscular HGB Conc 31.4 g/dL (31.8-35.4); Mean Corpuscular Hemoglobin 33.2 pg (27.0-31.2); Mean Corpuscular Volume 105.8 fl (81-99); Mean Platelet Volume 8.4 fl (7.4-10.4); Monocytes # 1.2 K/mm3 (0.1-1.0); Monocytes % 17.5 % (1.7-9.3); Neutrophils # 4.1 K/mm3 (1.8-7.8); Neutrophils % 59.8 % (37.0-80.0); Platelet Count 114 K/mm3 (142-424); Red Blood Count 3.38 M/mm3 (4.20-5.40); Red Cell Distribution Width 16.2 % (11.5-17.5); White Blood Count 6.8 K/mm3 (4.8-10.8)
[2022-10-06 06:44] LABS: Chloride 104 mmol/L (98-107); Potassium 4.6 mmoL/L (3.5-5.1); Sodium 134 mmol/L (136-145)
[2022-10-06 06:47] LABS: Anion Gap 11.6 mEq/L (5-15); Blood Urea Nitrogen 28 mg/dl (7-17); Carbon Dioxide 23 mmol/L (22.0-30.0); Creatinine Clearance Estimated 38 mL/min (50-200); Estimated Glomerular Filt Rate 26 ml/min (>60); GFR (African American) 32 ML/MIN (>60)
[2022-10-06 06:48] LABS: Calcium 7.9 mg/dl (8.4-10.2); Glucose 101 mg/dl (74-100)
--- NOTE | 2022-10-06 08:10 | EXP.ACUTE.PN ---
Subjective *Date: 10/06/22 *Time: 08:29 Interval history: Patient is feeling better this am. No pain when lying still. Has been up to the toilet. Breathing well and slept well last night. Medical Exam Vital signs and Labs for Last 24 Hours: Vital Signs Temp Pulse Pulse Resp BP BP Pulse Ox 10/06/22 06:28 86 10/06/22 06:28 85 10/06/22 06:28 96 10/06/22 04:00 97.8 F 78 16 106/66 L 94 L 10/06/22 00:00 97.8 F 70 17 115/60 93 L 10/05/22 20:00 97.6 F 64 16 115/51 L 94 L 10/05/22 19:44 66 10/05/22 19:44 68 10/05/22 16:00 64 10/05/22 17:00 97.9 F 62 16 140/66 96 10/05/22 16:00 98.0 F 63 17 113/66 96 10/05/22 15:00 98.3 F 62 16 143/76 H 97 10/05/22 14:00 98.1 F 62 17 141/81 H 96 10/05/22 13:00 98.3 F 74 17 133/82 97 10/05/22 12:30 98.3 F 74 18 107/78 L 97 10/05/22 12:00 98.1 F 75 18 115/69 92 L 10/05/22 11:30 98.2 F 87 17 108/73 L 99 10/05/22 11:00 98.1 F 78 17 128/74 94 L 10/05/22 10:45 97.8 F 72 17 122/66 94 L 10/05/22 10:30 98.0 F 84 18 112/68 96 10/05/22 10:15 97.9 F 76 18 123/69 97 10/05/22 10:00 83 16 96 10/05/22 09:50 86 16 114/73 97 10/05/22 09:40 97.9 F 87 16 116/66 98 10/05/22 08:27 14 10/05/22 15:03 97.9 F 83 114/73 10/05/22 09:46 98.3 F 86 16 116/66 Intake and Output 10/05/22 10/06/22 10/06/22 19:59 03:59 11:59 Intake Total 360 / 2724 1860 / 2724 504 / 2724 Output Total 0 / 500 500 / 500 Balance 360 / 2224 1860 / 2224 2223 Intake: Intake, Oral Amount 360 / 480 120 / 480 Intake, Total IV Amount 0 / 1314 930 / 1314 384 / 1314 0.9 % Sodium Chloride 1000ML 1, 930 / 1314 384 / 1314 000 ml @ 75 mls/hr IV .[id number] [facility] Rx#:[id number] Infusion Intake 930 / 930 0.9 % Sodium Chloride 1000ML 1, 930 / 930 000 ml @ 75 mls/hr IV .[id number] [facility] Rx#:[id number] Output: Output, Urine Amount 0 / 500 500 / 500 Other: Number of Voids 0 1 Number of Unmeasured Voids 2 Weight 186 lb 3 oz Patient Weight 10/06/22 11:59 Weight 186 lb 3 oz Laboratory Results - last 24 hr 10/06/22 05:47: WBC 6.8, RBC 3.38 L, Hgb 11.2 L, Hct 35.7 L, MCV 105.8 H, MCH 33.2 H, MCHC 31.4 L, RDW 16.2, Plt Count 114 L, MPV 8.4, Neut % (Auto) 59.8, Lymph % (Auto) 21.9, Rock % (Auto) 17.5 H, Eos % (Auto) 0.5, Baso % (Auto) 0.3, Neut # (Auto) 4.1, Lymph # (Auto) 1.5, Rock # (Auto) 1.2 H, Eos # (Auto) 0.0, Baso # (Auto) 0.0 10/06/22 05:47: Sodium 134 L, Potassium 4.6, Chloride 104, Carbon Dioxide 23, Anion Gap 11.6, BUN 28 H, Creatinine 1.90 H, Estimated Creat Clear 38, Estimated GFR 26 L, Est GFR ( Amer) 32 L, Glucose 101 H, Calcium 7.9 L I & O for Labs for Last 24 Hours: Intake & Output 10/03/22 10/04/22 10/05/22 10/06/22 11:59 11:59 11:59 11:59 Intake Total 1600 / 1600 2724 / 2724 Output Total 500 / 500 Balance 1600 / 1600 2224 / 2224 Weight 186 lb 3 oz Constitutional: Present no acute distress Respiratory: Present CTA bilaterally Cardiac: Present Reg Rate and Rhythm GI: Present soft; Absent distention or tenderness Extremities: Present edema (LLE) Skin: Present warm Comment:: YULIA and ice on the left knee Neuro: Present alert and awake Assessment and Plan *Assessment and plan (1) Total knee replacement status: Status: Acute Category: Surgical Code(s): Z96.659 - Presence of unspecified artificial knee joint (2) PAF (paroxysmal atrial fibrillation): Status: Acute Category: Medical Code(s): I48.0 - Paroxysmal atrial fibrillation (3) Bilateral knee pain: Status: Acute Category: Medical Code(s): M25.561 - Pain in right knee; M25.562 - Pain in left knee (4) Primary osteoarthritis of knees, bilateral: Status: Acute Category: Medical Code(s): M17.0 - Bilateral primary
--- NOTE | 2022-10-06 10:16 | EXP.ORTH.PN ---
Subjective *Date: 10/06/22 *Time: 10:18 Interval history: Ms. Mackay is a 67-year-old female patient who underwent an uneventful left primary total knee replacement performed by Dr. Lew yester. Today the patient is postop day #1. This morning she is lying comfortably in bed and her daughter is present at the bedside. She reports left knee pain as to be expected but states that it has been well controlled with as needed pain medication and rest. She reports that she was able to sleep well last night. She states that she has been eating and drinking well and denies any episodes of nausea or vomiting. She reports that she has ambulated only to the bedside commode, but states that this has gone relatively well with the assistance of therapy and a walker. No history of any distal tingling/numbness, fevers, chills, or rigors. She denies any other symptoms or concerns at this time. Ortho Exam (Inpt) Vital signs and Labs for Last 24 Hours: Temp Pulse Resp BP Pulse Ox 97.9 F 80 18 104/65 L 99 10/06/22 08:00 10/06/22 08:00 10/06/22 08:00 10/06/22 08:00 10/06/22 08:00 Laboratory Results - last 24 hr 10/06/22 05:47: WBC 6.8, RBC 3.38 L, Hgb 11.2 L, Hct 35.7 L, MCV 105.8 H, MCH 33.2 H, MCHC 31.4 L, RDW 16.2, Plt Count 114 L, MPV 8.4, Neut % (Auto) 59.8, Lymph % (Auto) 21.9, [place] % (Auto) 17.5 H, Eos % (Auto) 0.5, Baso % (Auto) 0.3, Neut # (Auto) 4.1, Lymph # (Auto) 1.5, [place] # (Auto) 1.2 H, Eos # (Auto) 0.0, Baso # (Auto) 0.0 10/06/22 05:47: Sodium 134 L, Potassium 4.6, Chloride 104, Carbon Dioxide 23, Anion Gap 11.6, BUN 28 H, Creatinine 1.90 H, Estimated Creat Clear 38, Estimated GFR 26 L, Est GFR ( Amer) 32 L, Glucose 101 H, Calcium 7.9 L I & O for Labs for Last 24 Hours: Intake & Output 10/03/22 10/04/22 10/05/22 10/06/22 23:59 23:59 23:59 23:59 Intake Total 1959 2604 / 2604 Output Total 0 / 0 500 / 500 Balance 1959 2104 / 2104 Weight 186 lb 3 oz Head: Present normocephalic and atraumatic Eyes: Present as per HPI ENT: Present normal exam Neck: Present normal inspection, full ROM and trachea midline; Absent lymphadenopathy Respiratory: Present normal respiratory effort, able to speak in complete sentences and symmetric chest movement; Absent accessory muscle use Cardiac: Present Reg Rate and Rhythm GI: Present soft; Absent tenderness Comment:: Upon examination of the left knee: Dressings present are clean, dry, and intact. Out of the dressings, the surgical incision appears healthy. No erythema, induration, purulent drainage, bleeding, or other signs of infection noted. There is a Dermabond Prineo skin closure system in place. Attempted movements of the left knee are somewhat painful. Thigh and calf are soft nontender; Homans' sign is negative. No clinical evidence of DVT or compartment syndrome noted. Distal neurovascular status is grossly intact; posterior tibial pulse 2+ Sensation to light touch is grossly intact throughout. Patient is actively mobilizing the foot, ankle, and toes. Diagnostic imaging: Postoperative x-ray performed at [facility] yesterday 10/05/2022 reviewed along with radiologist report. X-ray of the left knee demonstrates a total knee arthroplasty with orthopedic components in satisfactory alignment and fixation. No evidence of orthopedic complications noted. Radiologist report is as follows: FINDINGS: Left knee Two views were obtained. There is no acute fracture or dislocation. Patient is status post knee arthroplasty. There is no evidence of complication or soft tissue air. IMPRESSION: Status post total knee arthroplasty. Reviewed, Interpreted and Dictated by Kenneth Bland III, MD Transcribed by Jaclyn Coelho Authenticated and [facility] Skin: Present intact, warm and normal turgor; Absent cyanosis, erythema, lesions or jaundice Neuro: Present C
--- NOTE | 2022-10-06 11:30 | EXP.CARD.CON ---
History of Present Illness History of Present Illness Consult date: 10/06/22 Requesting physician: Iftikhar Aguirre Consult reason: atrial fibrillation Chief complaint: irregular heart rate History of present illness: This is a 66-year-old white female with a known history of hyperlipidemia, asthma, acid reflux, Villalobos with fatty liver disease, bipolar disorder and depression. The patient was admitted after a left total knee arthroplasty without complication yesterday. During the procedure the patient was noted to have an irregular heart rate so cardiology has been consulted. There are no strips or an EKG in the patient's chart from the irregular heart rhythm the patient experienced during surgery. The patient denies having any palpitations or racing of the heart. She denies any chest pain or pressure. She denies any shortness of breath or edema. She does complain of some knee pain which is expected postsurgery. She denies any fever, chills, nausea, vomiting, diarrhea, PND or orthopnea. Of note, the patient was evaluated in cardiology clinic around January 2022 for a similar complaint. The patient had surgery and was told she went into atrial fibrillation following the surgery. The EKGs from that surgery were reviewed that indicated atrial fibrillation as the report but on review of the EKG the patient was in sinus rhythm with PACs and sinus arrhythmia. She did wear an event monitor which showed sinus rhythm with PACs and a short run of atrial tachycardia. The patient has actually had no evidence of atrial fibrillation documented up to this point by EKG or telemetry strip. [facility] Disclaimer: The information contained in this section may have been updated after the patient was seen, as this information can be updated by other users. Medical History (Updated 10/06/22 @ 11:36 by Julia Hancock APRN) Asthma Cirrhosis GERD (gastroesophageal reflux disease) History of atrial tachycardia History of depressed bipolar disorder History of depression Hx of cardiac arrhythmia Hx of congestive heart failure Hx of edema Hx of thyroid disease Irregular heart rhythm Premature atrial contractions Surgical History (Updated 10/05/22 @ 17:33 by Jaclyn Daniels APRN) History of bladder repair surgery History of cataract surgery History of failed repair of rotator cuff History of hernia repair History of hysterectomy History of lithotripsy History of sinus surgery No significant past surgical history Family History Other Family history of cancer Family history of depression Family history of hyperthyroidism Family history of hypothyroidism Family history of stroke Social History Smoking Status: Former smoker second hand exposure: Yes alcohol intake: never substance use type: denies use current occupational status: retired Travel in the last 8 weeks: None household members: none housing: house lives independently: Yes marital status: single education level: high school current occupational exposures/hazards: No caffeine: Yes special semaj needs: No agree to transfusion: No do you feel safe at home: Yes victim of physical abuse: No victim of emotional abuse: No victim of sexual abuse: No would you like helpful sources: No Review of Systems Review of Systems Review of systems:: pertinent systems reviewed and negative unless documented below Constitutional Constitutional: Reports system reviewed and no additional complaints, except as documented and Denies headache(s) Eyes Eyes: Reports system reviewed and no additional complaints, except as documented ENT Ears, Nose, Mouth, and Throat: Reports system reviewed and no additional complaints, except as documented and Denies headache(s) *Cardiovascular Cardiovascular: Reports system reviewed and no additional complaints, except as document
--- NOTE | 2022-10-06 14:13 | EXP.DC.SUM ---
General Admission date:: 10/05/22 Discharge date: 10/06/22 HPI HPI HPI: Ms. moe is a 66-year-old female with a history of hyperlipidemia, asthma, allergic rhinitis, arthritis, acid reflux, Villalobos with fatty liver, depression and bipolar disorder who was admitted after left knee surgery by Dr. Lew. She had a left total knee arthroplasty without complications this AM. Case management has been consulted for inpatient rehab at [facility] as the patient lives at home alone and prefers to rehab before being discharged to home. Hospital Course Hospital Course Hospital Course: Patient had left total knee arthroplasty on 10/05/2022. Postoperatively she did well.. During the recovery phase she was thought to have had a run of atrial fibrillation. They were unable to document this. Cardiology did see her with the following recommendations/directions: Plan: 1.? The patient was admitted to the hospital following a left total knee arthroplasty.? The patient is scheduled to go to [facility] for rehab following surgery.? She is complaining of a little bit of pain in her left knee today which is expected following surgery.? Will defer this to her primary care provider and orthopedics. 2.? The patient did have an irregular heart rhythm during surgery yesterday.? This lasted approximately 30 minutes.? There is no EKG from the time of her irregular heart rhythm and no strips were printed either.? Surgery reported that they are not unable to print the strips from their property assessment monitor that was used but her heart rate was irregular and lasted approximately 30 minutes.? The patient had a similar episode with the previous surgery and she was referred to cardiology clinic for this.? The EKG from that surgery was reviewed and the patient was actually in sinus rhythm with PACs and sinus arrhythmia and not atrial fibrillation.? She did wear a 2-week event monitor following this episode as well which also showed sinus rhythm with PACs and some runs of atrial tachycardia.? There was no atrial fibrillation documented. 3.? Dr. Milligan suspects that the patient was most likely having sinus rhythm with PACs/sinus arrhythmia and/or runs of atrial tachycardia during surgery yesterday since the patient has had this happen in the past where it was called atrial fibrillation and was not.? Up to this point the patient has had no documented atrial fibrillation.? Given her cirrhosis of the liver she has a higher threshold for starting her on long-term anticoagulation due to the risk of bleeding.? Dr. Milligan would like confirmation that she truly has episodes of atrial fibrillation before starting her on lifelong anticoagulation and increasing her risk of bleeding due to her known cirrhosis of the liver. 4.? However, the fact that the patient is having a lot of atrial ectopy with PACs and atrial tachycardia, this can be a precursor for her going into atrial fibrillation at some point.? So we would like to put her on a beta-lillian with bisoprolol 10 mg p.o. daily to suppress her atrial ectopy.? Stop propranolol. 5.? Secondary to the patient's high likelihood of going into atrial fibrillation because of all of her atrial ectopy and recurrent irregular heart rhythms, the patient would benefit from loop recorder placement to follow her irregular heart rhythm to ensure that she does not go into atrial fibrillation.? And if she does go into atrial fibrillation, this will be documented and then the patient can be started on long-term anticoagulation if needed. 6.? The patient and her family have been educated on the risks and benefits of proceeding with loop recorder placement.? The patient and her family verbalized understanding and are agreeable in proceeding with the procedure..? We will plan for loop recorder placement this afternoon. 7.? Her blood pressure is well controlled. 8.? Her LDL goal is less than 100. 9.? We will get an echocardiogram to evaluate her LV function. 10.? Further recommendations
--- NOTE | 2022-10-06 15:17 | SUR.OPER ---
loo recorder procedure done at bedside by Julia Hancock aprn, site cdi, no c/o pain
--- NOTE | 2022-10-06 15:18 | EXP.LOOP ---
[facility] Loop Recorder Date: 10/06/22 Time: 15:12 Procedure Performed:: Implantation of loop recorder Indication:: irregular heart rhythm Technique:: Patient was keep in hospital room. After informed consent was obtained, 1% lidocaine with epinephrine was used to anesthetize the site along the left anterior aspect of the chest near the sternal border. Using the preformed scalpel, an incision was made and using the supplied preloaded apparatus, the loop recorder was placed subcutaneously without difficulty. Following the deployment of the loop recorder interrogation of the device was performed to ensure appropriate voltage was being detected at 0.27 mV. Once this was verified, Steri-Strips were placed over the incision with a dressing. Patient tolerated the procedure well with minimal discomfort. Impression:: Successful implantation of loop recorder Serial Number:: [id number] Serial #[id number] Plan:: Routine postop care
--- NOTE | 2022-10-06 16:30 | EXP.ACUTE.PN ---
Subjective *Date: 10/06/22 *Time: 16:30 Interval history: After discharge order was placed, patient began to have rectal bleeding. Medical Exam Vital signs and Labs for Last 24 Hours: Vital Signs Temp Pulse Pulse Resp BP Pulse Ox 10/06/22 04:00 80 10/05/22 23:56 80 10/06/22 12:00 80 10/06/22 08:00 80 10/05/22 20:00 63 10/06/22 13:17 81 10/06/22 14:51 97.6 F 88 18 110/58 L 97 10/06/22 10:32 97.9 F 80 18 104/65 L 99 10/06/22 08:00 97.9 F 80 18 104/65 L 99 10/06/22 06:28 86 10/06/22 06:28 85 10/06/22 06:28 96 10/06/22 04:00 97.8 F 78 16 106/66 L 94 L 10/06/22 00:00 97.8 F 70 17 115/60 93 L 10/05/22 20:00 97.6 F 64 16 115/51 L 94 L 10/05/22 19:44 66 10/05/22 19:44 68 10/05/22 17:00 97.9 F 62 16 140/66 96 Intake and Output 10/06/22 10/06/22 10/06/22 07:59 15:59 23:59 Intake Total 2364 / 2964 600 / 2964 Output Total 500 / 500 0 / 500 Balance 1864 / 2464 600 / 2464 Intake: Intake, Oral Amount 120 / 720 600 / 720 Intake, Total IV Amount 1314 / 1314 0.9 % Sodium Chloride 1000ML 1, 1314 / 1314 000 ml @ 75 mls/hr IV .[id number] B[facility]ANY Rx#:[id number] Infusion Intake 930 / 930 0.9 % Sodium Chloride 1000ML 1, 930 / 930 000 ml @ 75 mls/hr IV .[id number] B[facility]ANY Rx#:[id number] Output: Output, Urine Amount 500 / 500 0 / 500 Other: Number of Voids 1 Number of Unmeasured Voids 1 Weight 186 lb 3 oz Patient Weight 10/06/22 23:59 Weight 186 lb 3 oz Laboratory Results - last 24 hr 10/06/22 05:47: WBC 6.8, RBC 3.38 L, Hgb 11.2 L, Hct 35.7 L, MCV 105.8 H, MCH 33.2 H, MCHC 31.4 L, RDW 16.2, Plt Count 114 L, MPV 8.4, Neut % (Auto) 59.8, Lymph % (Auto) 21.9, [place] % (Auto) 17.5 H, Eos % (Auto) 0.5, Baso % (Auto) 0.3, Neut # (Auto) 4.1, Lymph # (Auto) 1.5, [place] # (Auto) 1.2 H, Eos # (Auto) 0.0, Baso # (Auto) 0.0 10/06/22 05:47: Sodium 134 L, Potassium 4.6, Chloride 104, Carbon Dioxide 23, Anion Gap 11.6, BUN 28 H, Creatinine 1.90 H, Estimated Creat Clear 38, Estimated GFR 26 L, Est GFR ( Amer) 32 L, Glucose 101 H, Calcium 7.9 L I & O for Labs for Last 24 Hours: Intake & Output 10/03/22 10/04/22 10/05/22 10/06/22 23:59 23:59 23:59 23:59 Intake Total 1959 3820 2964 / 2964 Output Total 0 / 0 500 / 500 Balance 19590 2464 / 2464 Weight 186 lb 3 oz Assessment and Plan *Assessment and plan (1) Premature atrial contractions: Status: Acute Category: Medical Code(s): I49.1 - Atrial premature depolarization (2) History of atrial tachycardia: Status: Acute Category: Medical Code(s): Z86.79 - Personal history of other diseases of the circulatory system (3) Total knee replacement status: Status: Acute Category: Surgical Code(s): Z96.659 - Presence of unspecified artificial knee joint (4) GERD (gastroesophageal reflux disease): Status: Acute Category: Medical Code(s): K21.9 - Gastro-esophageal reflux disease without esophagitis (5) Asthma: Status: Acute Category: Medical Code(s): J45.909 - Unspecified asthma, uncomplicated (6) Cirrhosis: Status: Acute Category: Medical Code(s): K74.60 - Unspecified cirrhosis of liver Plan Will cancel discharge for tonight and will consult Dr. Deng as he has previously seen patient for this problem, resume home medications. Recheck labs in the morning.
--- NOTE | 2022-10-06 16:55 | PC.NURSE ---
Blood noted after patient tried to sit on bedside commode. Dr. Aguirre notified of bleeding from rectum. Due to patient history of rectocele surgeries discharge was cancelled and surgeon consult in am. Patient and family notified.
--- NOTE | 2022-10-06 18:32 | PC.NURSE ---
VS stable, icentive spirometer education given and pt able to demonstrate use. Patient able to use walker and two assist to pivot to chair, bedside, and bed.
[2022-10-07] VITALS (10 sets, daily range): BP systolic 87–115; BP diastolic 51–74; PULSE 80–100; RESP 17–18; TEMP 36.9–37.1; O2SAT 93–98; BMI 33.8
--- NOTE | 2022-10-07 04:44 | PC.NURSE ---
Pt has slept most of this shift and has had no complaints. Steri-strips in place to left knee incision. No rectal bleeding noted this shift.
[2022-10-07 06:11] LABS: Basophils % 0.3 % (0.1-2.0); Eosinophils % 0.3 % (0.1-12.0); Hematocrit 31.3 % (37.0-47.0); Hemoglobin 10.1 g/dL (12.2-16.2); Lymphocytes # 1.5 K/mm3 (0.7-4.5); Lymphocytes % 19.5 % (10-50); Mean Corpuscular HGB Conc 32.2 g/dL (31.8-35.4); Mean Corpuscular Hemoglobin 33.5 pg (27.0-31.2); Mean Platelet Volume 8.5 fl (7.4-10.4); Monocytes # 1.1 K/mm3 (0.1-1.0); Monocytes % 14.6 % (1.7-9.3); Neutrophils % 65.3 % (37.0-80.0); Platelet Count 89 K/mm3 (142-424); Red Blood Count 3.01 M/mm3 (4.20-5.40); Red Cell Distribution Width 16.1 % (11.5-17.5); White Blood Count 7.7 K/mm3 (4.8-10.8)
[2022-10-07 06:16] LABS: Chloride 105 mmol/L (98-107); Potassium 4.6 mmoL/L (3.5-5.1); Sodium 132 mmol/L (136-145)
[2022-10-07 06:18] LABS: Alanine Aminotransferase 22 U/L (12-78); Aspartate Amino Transferase 39 U/L (14-36); Blood Urea Nitrogen 39 mg/dl (7-17); Creatinine Clearance Estimated 36 mL/min (50-200); Estimated Glomerular Filt Rate 23 ml/min (>60); GFR (African American) 28 ML/MIN (>60)
[2022-10-07 06:19] LABS: Albumin Level 2.6 g/dl (3.5-5.0); Albumin/Globulin Ratio 0.9 (1.1-1.8); Alkaline Phosphatase 153 U/L (38-126); Anion Gap 12.6 mEq/L (5-15); Bilirubin,Total 3.2 mg/dl (0.2-1.3); Calcium 7.7 mg/dl (8.4-10.2); Carbon Dioxide 19 mmol/L (22.0-30.0); Glucose 81 mg/dl (74-100); Total Protein,Serum 5.6 g/dl (6.3-8.2)
--- NOTE | 2022-10-07 07:21 | EXP.SURG.CON ---
History of Present Illness *Admission Date: 10/05/22 *History of present illness: Patient is a 67-year-old female whom I have seen in the past for bleeding hemorrhoids. She has a history of nonalcoholic steatohepatitis with cirrhosis and relatively longstanding history of intermittent painless bleeding from hemorrhoids. Dr. De Jesus had performed several upper endoscopies and she has been found to have gastric and esophageal varices for which she has previously performed APC ablation. Her last colonoscopy was in October 2017 revealing internal hemorrhoids and colon polyps x6. She has previously been worked up in the [facility] for her cirrhosis and she was found to have reversed portal venous flow with upper abdominal collaterals consistent with splenorenal shunt. Previous imaging has revealed findings of cirrhosis with portal hypertension. I had previously seen her in the office for evaluation of painless rectal bleeding secondary to hemorrhoids. It was felt that given the patient's significant history of nonalcoholic steatohepatitis with cirrhosis and resultant reversal of portal venous flow which would lead to, and exacerbate hemorrhoid issue and that any surgical intervention on hemorrhoids would likely be unsuccessful. Therefore, attempt was made at nonoperative management. Patient underwent left total knee arthroplasty [address] Lew. She was admitted for inpatient management. Cardiology was consulted for intraoperative irregular heart rate. She had implantation of loop recorder yesterday by cardiology. Arrangements were being made for discharge to [place] for short-term rehab and she had passage of relatively fresh blood per rectum. She denies any pain. Surgical consultation was obtained for rectal bleeding. Patient has no recent INR but previously she has had slight elevation secondary to liver dysfunction. Patient is on a regular diet. [facility] Disclaimer: The information contained in this section may have been updated after the patient was seen, as this information can be updated by other users. Medical History (Updated 10/07/22 @ 08:16 by GLORIA Evans) Asthma Cirrhosis GERD (gastroesophageal reflux disease) History of atrial tachycardia History of depressed bipolar disorder History of depression Hx of cardiac arrhythmia Hx of congestive heart failure Hx of edema Hx of thyroid disease Irregular heart rhythm Premature atrial contractions Surgical History (Updated 10/05/22 @ 17:33 by Jaclyn Daniels APRN) History of bladder repair surgery History of cataract surgery History of failed repair of rotator cuff History of hernia repair History of hysterectomy History of lithotripsy History of sinus surgery No significant past surgical history Family History Other Family history of cancer Family history of depression Family history of hyperthyroidism Family history of hypothyroidism Family history of stroke Social History Smoking Status: Former smoker second hand exposure: Yes alcohol intake: never substance use type: denies use current occupational status: retired Travel in the last 8 weeks: None household members: none housing: house lives independently: Yes marital status: single education level: high school current occupational exposures/hazards: No caffeine: Yes special semaj needs: No agree to transfusion: No do you feel safe at home: Yes victim of physical abuse: No victim of emotional abuse: No victim of sexual abuse: No would you like helpful sources: No Review of Systems Constitutional Constitutional: Denies headache(s) ENT Ears, Nose, Mouth, and Throat: Denies headache(s) *Musculoskeletal Musculoskeletal: Reports abnormal gait (Had been using a tripod cane at home.) *Neurologic Neurologic: Reports system reviewed and no add
--- NOTE | 2022-10-07 08:13 | EXP.ACUTE.PN ---
Subjective *Date: 10/07/22 *Time: 08:45 Interval history: Patient's discharge was cancelled yesterday due to rectal bleeding and a surgical consult was placed. Patient is complaining of pain in the left knee this am. She did sleep off and on and ate some of her breakfast. Medical Exam Vital signs and Labs for Last 24 Hours: Vital Signs Temp Pulse Pulse Resp BP Pulse Ox 10/07/22 07:27 98.7 F 95 H 18 115/58 L 96 10/07/22 05:59 91 H 10/07/22 05:59 96 H 10/07/22 05:59 93 L 10/07/22 04:00 100 H 10/07/22 03:55 98.4 F 95 H 17 108/74 L 93 L 10/07/22 00:00 100 H 10/07/22 00:00 98.4 F 91 H 18 101/52 L 93 L 10/06/22 20:00 80 10/06/22 20:00 98.6 F 85 16 104/55 L 94 L 10/06/22 18:45 79 10/06/22 18:45 79 10/06/22 12:00 80 10/06/22 13:17 81 10/06/22 14:51 97.6 F 88 18 110/58 L 97 10/06/22 10:32 97.9 F 80 18 104/65 L 99 Intake and Output 10/06/22 10/07/22 10/07/22 19:59 03:59 11:59 Intake Total 1104 / 1464 360 / 1464 Output Total 125 / 425 300 / 425 Balance 979 / 1039 60 / 1039 Intake: Intake, Oral Amount 600 / 960 360 / 960 Intake, Total IV Amount 504 / 504 0.9 % Sodium Chloride 1000ML 1, 504 / 504 000 ml @ 75 mls/hr IV .[id number] [facility] Rx#:[id number] Output: Output, Urine Amount 125 / 425 300 / 425 Other: Number of Unmeasured Voids 1 1 Weight 191 lb Patient Weight 10/07/22 11:59 Weight 191 lb Laboratory Results - last 24 hr 10/07/22 05:43: WBC 7.7, RBC 3.01 L, Hgb 10.1 L, Hct 31.3 L, MCV 104.0 H, MCH 33.5 H, MCHC 32.2, RDW 16.1, Plt Count 89 L, MPV 8.5, Neut % (Auto) 65.3, Lymph % (Auto) 19.5, [place] % (Auto) 14.6 H, Eos % (Auto) 0.3, Baso % (Auto) 0.3, Neut # (Auto) 5.0, Lymph # (Auto) 1.5, [place] # (Auto) 1.1 H, Eos # (Auto) 0.0, Baso # (Auto) 0.0 10/07/22 05:43: Sodium 132 L, Potassium 4.6, Chloride 105, Carbon Dioxide 19 L, Anion Gap 12.6, BUN 39 H D, Creatinine 2.10 H, Estimated Creat Clear 36, Estimated GFR 23 L, Est GFR ( Amer) 28 L, Glucose 81, Calcium 7.7 L, Total Bilirubin 3.2 H, AST 39 H, ALT 22, Alkaline Phosphatase 153 H, Total Protein 5.6 L, Albumin 2.6 L, Globulin 3.0, Albumin/Globulin Ratio 0.9 L I & O for Labs for Last 24 Hours: Intake & Output 10/04/22 10/05/22 10/06/22 10/07/22 11:59 11:59 11:59 11:59 Intake Total 1600 / 1600 2964 / 2964 1464 / 1464 Output Total 500 / 500 425 / 425 Balance 1600 / 1600 2464 / 2464 1039 / 1039 Weight 186 lb 3 oz 191 lb Constitutional: Present no acute distress Respiratory: Present CTA bilaterally Cardiac: Present Reg Rate and Rhythm GI: Present soft; Absent distention or tenderness Extremities: Present edema (LLE) Skin: Present warm Comment:: surgical site of left knee looks good today Neuro: Present alert and awake Assessment and Plan *Assessment and plan (1) Premature atrial contractions: Status: Acute Category: Medical Code(s): I49.1 - Atrial premature depolarization (2) History of atrial tachycardia: Status: Acute Category: Medical Code(s): Z86.79 - Personal history of other diseases of the circulatory system (3) Total knee replacement status: Status: Acute Category: Surgical Code(s): Z96.659 - Presence of unspecified artificial knee joint (4) GERD (gastroesophageal reflux disease): Status: Acute Category: Medical Code(s): K21.9 - Gastro-esophageal reflux disease without esophagitis (5) Asthma: Status: Acute Category: Medical Code(s): J45.909 - Unspecified asthma, uncomplicated (6) Cirrhosis: Status: Acute Category: Medical Code(s): K74.60 - Unspecified cirrhosis of liver (7) Rectal bleeding: Status: Acute Category: Medical Code(s): K62.5 - Hemorrhage of anus and rectum Plan Surgery to see patient this am. H&H has decreased from 11.2 to 10.1.
--- NOTE | 2022-10-07 09:17 | EXP.ORTH.PN ---
Subjective *Date: 10/07/22 *Time: 08:50 Interval history: Ms. Mackay is a 67-year-old female patient who underwent a left primary total knee replacement performed by Dr. Lew 10/05/2022. Today the patient is postop day #2. This morning she is sitting comfortably in a chair at the bedside. She reports left knee pain as to be expected but states that it has been well controlled with as needed pain medication and rest. She reports that she has ambulated a little with the assistance of therapy and that this is going well. No history of any distal tingling/numbness, fevers, chills, or rigors. She denies any other symptoms or concerns at this time. Ortho Exam (Inpt) Vital signs and Labs for Last 24 Hours: Temp Pulse Resp BP Pulse Ox 98.7 F 95 H 18 115/58 L 96 10/07/22 07:27 10/07/22 07:27 10/07/22 07:27 10/07/22 07:27 10/07/22 07:27 Laboratory Results - last 24 hr 10/07/22 05:43: WBC 7.7, RBC 3.01 L, Hgb 10.1 L, Hct 31.3 L, MCV 104.0 H, MCH 33.5 H, MCHC 32.2, RDW 16.1, Plt Count 89 L, MPV 8.5, Neut % (Auto) 65.3, Lymph % (Auto) 19.5, [place] % (Auto) 14.6 H, Eos % (Auto) 0.3, Baso % (Auto) 0.3, Neut # (Auto) 5.0, Lymph # (Auto) 1.5, [place] # (Auto) 1.1 H, Eos # (Auto) 0.0, Baso # (Auto) 0.0 10/07/22 05:43: Sodium 132 L, Potassium 4.6, Chloride 105, Carbon Dioxide 19 L, Anion Gap 12.6, BUN 39 H D, Creatinine 2.10 H, Estimated Creat Clear 36, Estimated GFR 23 L, Est GFR ( Amer) 28 L, Glucose 81, Calcium 7.7 L, Total Bilirubin 3.2 H, AST 39 H, ALT 22, Alkaline Phosphatase 153 H, Total Protein 5.6 L, Albumin 2.6 L, Globulin 3.0, Albumin/Globulin Ratio 0.9 L I & O for Labs for Last 24 Hours: Intake & Output 10/04/22 10/05/22 10/06/22 10/07/22 23:59 23:59 23:59 23:59 Intake Total 1959 / 3820 3708 / 3708 360 / 360 Output Total 0 / 0 625 / 625 300 / 300 Balance 1959 / 3820 3083 / 3083 60 / 60 Weight 186 lb 3 oz 191 lb Head: Present normocephalic and atraumatic Eyes: Present as per HPI ENT: Present normal exam Neck: Present normal inspection, full ROM and trachea midline; Absent lymphadenopathy Respiratory: Present normal respiratory effort, able to speak in complete sentences and symmetric chest movement; Absent accessory muscle use Cardiac: Present Reg Rate and Rhythm GI: Present soft; Absent tenderness Comment:: Upon examination of the left knee: The surgical incision appears healthy. No erythema, induration, purulent drainage, bleeding, or other signs of infection noted. There is a Dermabond Prineo skin closure system in place. Attempted movements of the left knee are somewhat painful. Thigh and calf are soft nontender; Homans' sign is negative. No clinical evidence of DVT or compartment syndrome noted. Distal neurovascular status is grossly intact; posterior tibial pulse 2+ Sensation to light touch is grossly intact throughout. Patient is actively mobilizing the foot, ankle, and toes. Skin: Present intact, warm and normal turgor; Absent cyanosis, erythema, lesions or jaundice Neuro: Present Cranial Nerve 2-12 Intact, Motor Function Intact, Sensory Function Intact, alert, awake, oriented x 3, tone normal and moves all extremities; Absent Numbness or Tingling Assessment and Plan *Assessment and plan (1) Primary osteoarthritis of knees, bilateral: Status: Acute Category: Medical Code(s): M17.0 - Bilateral primary osteoarthritis of knee (2) Total knee replacement status: Status: Acute Category: Surgical Code(s): Z96.659 - Presence of unspecified artificial knee joint Plan I have discussed the clinical findings and progress with the patient. Overall she is doing well this morning from orthopedic standpoint may be discharged when medically appropriate. Surgical incision appears healthy, there is a Dermabond Prineo skin closure system in place; I have given the patient appropriate care instructions. Plan to continue PT/OT; patient may ambulate weightbearing as tolerated on the left l
--- NOTE | 2022-10-07 11:25 | EXP.CARD.PN ---
Subjective Subjective Date: 10/07/22 Time: 11:25 Principal diagnosis: irregular heart rhythm Interval history: This is a 67-year-old white female who presented to the hospital to undergo left total knee arthroplasty. During her surgery there was concern that she had an irregular heart rhythm concerning for atrial fibrillation. However no telemetry strips were obtained during the irregular heart rhythm and no EKG was obtained either. Apparently did telemetry that was used during surgery was unable to print. Following surgery all of her EKGs and telemetry strips have shown sinus rhythm and sinus rhythm with PACs. The patient had a similar event happen with a previous surgery and she was evaluated in cardiology clinic in January 2022 for the same complaints. At that time EKGs were obtained and the computer called them atrial fibrillation but on review of the EKGs they were in fact sinus with sinus arrhythmia and PACs, no atrial fibrillation was identified. She did wear an event monitor which showed no atrial fibrillation. Given her history of cirrhosis of the liver she has a higher threshold for starting her on long-term anticoagulation. Without documented atrial fibrillation Dr. Milligan does not want to put her on lifelong oral anticoagulation and increase her risk for bleeding unless there is documented atrial fibrillation. She underwent loop recorder placement yesterday to monitor for atrial fibrillation. She tolerated this procedure well. Her site has no signs of infection and no pain. She denies any chest pain or pressure. She denies any shortness of breath or edema. She denies any fever, chills, nausea, vomiting, diarrhea, PND orthopnea. She does have a little knee discomfort status post surgery. Exam Data for Last 24 hours Vital signs and Labs for Last 24 Hours: Temp Pulse Resp BP Pulse Ox 98.7 F 85 18 109/62 L 97 10/07/22 11:22 10/07/22 11:22 10/07/22 11:22 10/07/22 11:22 10/07/22 11:22 Laboratory Results - last 24 hr 10/07/22 05:43: WBC 7.7, RBC 3.01 L, Hgb 10.1 L, Hct 31.3 L, MCV 104.0 H, MCH 33.5 H, MCHC 32.2, RDW 16.1, Plt Count 89 L, MPV 8.5, Neut % (Auto) 65.3, Lymph % (Auto) 19.5, [place] % (Auto) 14.6 H, Eos % (Auto) 0.3, Baso % (Auto) 0.3, Neut # (Auto) 5.0, Lymph # (Auto) 1.5, [place] # (Auto) 1.1 H, Eos # (Auto) 0.0, Baso # (Auto) 0.0 10/07/22 05:43: Sodium 132 L, Potassium 4.6, Chloride 105, Carbon Dioxide 19 L, Anion Gap 12.6, BUN 39 H D, Creatinine 2.10 H, Estimated Creat Clear 36, Estimated GFR 23 L, Est GFR ( Amer) 28 L, Glucose 81, Calcium 7.7 L, Total Bilirubin 3.2 H, AST 39 H, ALT 22, Alkaline Phosphatase 153 H, Total Protein 5.6 L, Albumin 2.6 L, Globulin 3.0, Albumin/Globulin Ratio 0.9 L I & O for Last 24 hours: Intake & Output 10/04/22 10/05/22 10/06/22 10/07/22 23:59 23:59 23:59 23:59 Intake Total 1960 / 3820 3708 / 3708 360 / 360 Output Total 0 / 0 625 / 625 300 / 300 Balance 1960 / 3820 3083 / 3083 60 / 60 Weight 186 lb 3 oz 191 lb Microbiology Reports for the Last 24 Hours: Microbiology 10/05/22 23:00 Anus CRE Surveillance Culture - Final Narrative: Telemetry strip is sinus rhythm. Constitutional Constitutional: no acute distress and obese *Routine HEENT Exam Head: Present normocephalic and atraumatic ENT: Present mucous membranes moist *Routine Neck Exam Neck: Present supple, full ROM and normal carotid upstroke; Absent JVD, carotid bruit or lymphadenopathy *Routine Respiratory Exam Respiratory: Present CTA bilaterally, normal respiratory effort, able to speak in complete sentences and symmetric chest movement *Routine Cardiovascular Exam Cardiovascular: Present RRR, Normal S1 and Normal S2; Absent murmur or gallop *Routine Abdominal Exam Abdominal: Present soft and normoactive bowel sounds; Absent tenderness, distended or organomegaly *Routine Extremities Exam Extremities: Present full ROM, pulses intact and normal capillary refill; Absent cyanosis, clubbing or ed
== END 2022-10-07 16:52 ==
LOC: 2ND 06:31
PROVIDERS: Internal Medicine; Admitting Provider Orthopaedic Surgery; PCP Family Medicine; Visit Provider Family Medicine
PROC: (CPT 27447; principal; 2022-10-05 07:30)
DX: I48.0 Paroxysmal atrial fibrillation (principal); M17.12 Unilateral primary osteoarthritis, left knee; M25.562 Pain in left knee; J45.909 Unspecified asthma, uncomplicated; I49.9 Cardiac arrhythmia, unspecified; I49.1 Atrial premature depolarization; K74.60 Unspecified cirrhosis of liver; Z20.822 Contact with and (suspected) exposure to COVID-19
CPT/HCPCS: 27447; G0378; 33285; 36415; 73560; 80048; 80053; 85025; 87081; 93306; 94640; 96374; 97110; 97116; 97140; 97162; 97166; 97530; C1713; C1764; C1776; C9803; J2405; J2704; U0003; U0005

== ENCOUNTER → 2022-10-27 08:35 | Outpatient (CLI) | payer MEDICARE, SELFPAY ==
--- NOTE | 2022-10-27 08:40 | XR_ITS ---
FINAL REPORT CLINICAL HISTORY: left knee pain COMPARISON: 10/05/2022 FINDINGS: Left knee Three views were obtained. There is no acute fracture or dislocation. Total joint prosthesis is in anatomic alignment. There is no evidence of loosening. No soft tissue abnormality is identified. IMPRESSION: No acute process. Reviewed, Interpreted and Dictated by Alexander Collado MD Transcribed by Jaclyn Coelho Authenticated and [facility]
== END ==
PROVIDERS: PCP Family Medicine; Visit Provider Orthopaedic Surgery
DX: M25.562 Pain in left knee; Z96.652 Presence of left artificial knee joint
CPT/HCPCS: 73562

== ENCOUNTER → 2022-12-22 10:49 | Outpatient (CLI) | payer MEDICARE, SELFPAY ==
[2022-12-22 11:37] LABS: Basophils % 0.7 % (0.1-2.0); Eosinophils % 0.6 % (0.1-12.0); Hematocrit 37.2 % (37.0-47.0); Hemoglobin 11.3 g/dL (12.2-16.2); Lymphocytes # 1.4 K/mm3 (0.7-4.5); Lymphocytes % 30.5 % (10-50); Mean Corpuscular HGB Conc 30.4 g/dL (31.8-35.4); Mean Corpuscular Hemoglobin 32.5 pg (27.0-31.2); Mean Corpuscular Volume 106.8 fl (81-99); Mean Platelet Volume 8.3 fl (7.4-10.4); Monocytes # 0.7 K/mm3 (0.1-1.0); Neutrophils # 2.4 K/mm3 (1.8-7.8); Neutrophils % 52.4 % (37.0-80.0); Platelet Count 113 K/mm3 (142-424); Red Blood Count 3.48 M/mm3 (4.20-5.40); Red Cell Distribution Width 16.8 % (11.5-17.5); White Blood Count 4.5 K/mm3 (4.8-10.8)
[2022-12-22 12:35] LABS: Chloride 104 mmol/L (98-107); Sodium 137 mmol/L (136-145)
[2022-12-22 12:36] LABS: Potassium 3.7 mmoL/L (3.5-5.1)
[2022-12-22 12:38] LABS: Alanine Aminotransferase 39 U/L (12-78); Albumin Level 2.7 g/dl (3.5-5.0); Albumin/Globulin Ratio 0.8 (1.1-1.8); Alkaline Phosphatase 179 U/L (38-126); Anion Gap 11.7 mEq/L (5-15); Aspartate Amino Transferase 52 U/L (14-36); Bilirubin,Total 4.2 mg/dl (0.2-1.3); Blood Urea Nitrogen 13 mg/dl (7-17); Carbon Dioxide 25 mmol/L (22.0-30.0); Estimated Glomerular Filt Rate 62 ml/min (>60); GFR (African American) 76 ML/MIN (>60); Globulin 3.5 g/dL (1.3-3.2); Total Protein,Serum 6.2 g/dl (6.3-8.2)
[2022-12-22 12:39] LABS: Calcium 8.5 mg/dl (8.4-10.2); Glucose 65 mg/dl (74-100)
[2022-12-22 12:51] LABS: INR 1.37 (0.9-1.1); Prothrombin Time 14.5 seconds (10.1-12.5)
== END ==
PROVIDERS: PCP Family Medicine; Visit Provider Physician Assistant
DX: K74.60 Unspecified cirrhosis of liver (principal); D64.9 Anemia, unspecified
CPT/HCPCS: 36415; 80053; 85025; 85610

== ENCOUNTER 2023-03-30 20:02 | Emergency (ER) | payer MEDICARE, SELFPAY ==
[2023-03-30 20:03] VITALS: BP 126/67; PULSE 89; RESP 22; TEMP 36.6; O2SAT 97; BMI 33.6
--- OUTSIDE RECORDS SUMMARY | 2023-03-30 21:04 | XMS_ITS | Clinical Summary ---
Author Name Unknown Address [address] [place] [address] Phone Organization [facility] , [facility] Address [address] [place] [address] Phone Care Team Providers Care Packer Fuser Name Role Phone Elijah BUNN, Bishop Munoz Unavailable [phone] BLAKENEREIDARAMIRO Unavailable [phone] Reason for Visit and Chief Complaint Kyphoplasty Problems Includes: Problems addressed during this encounter and other active Problems All Visits Onset Date Resolved Date Provider Condition S tatus Lower Back Pain 12/10/2021 Bishop Nava MD Act michele Plan of Treatment No Plan of Treatment Recorded Assessments Includes: Assessments from this encounter No Assessments Recorded Medical Equipment - Implanted Devices Includes: Current Devices No Medical Equipment Recorded Medications Includes: Medications discussed during this encounter and other current Medications Current Medications (continue as prescribed) Aldactone 25 MG Oral Tablet 12/10/2021 Provider: Diagnosis: Breo Ellipta 100-25 MCG/INH Inhalation Aerosol Powder Breath Activated 12/10/2021 Provider: Diagnosis: ZyPREXA 15 MG Oral Tablet 12/10/2021 Provider: Diagnosis:
--- OUTSIDE RECORDS SUMMARY | 2023-03-30 21:04 | XMS_ITS ---
Care Plan - [facility], [facility] Created on: March 30, 2023 Gela Mackay : 1955 Sex: Female Author Name Unknown Address [address] [place] [address] Phone Organization [facility] Address [address] [place] [place] [address] Phone Care Team Providers Care Cruller Maker Machine Name Role Phone Elijah BUNN, Bishop Munoz Unavailable [phone] RAMIRO PRIEST Unavailable [phone]
--- OUTSIDE RECORDS SUMMARY | 2023-03-30 21:04 | XMS_ITS | Clinical Summary ---
Author Name Unknown Address [address] [place] [address] Phone Organization [facility] , [facility] Address [address] [place] [address] Phone Care Team Providers Care Sequencing Machine Operator Name Role Phone Elijah BUNN, Bishop Munoz Unavailable [phone] ZAYDA RAMIRO Unavailable [phone] Reason for Visit and Chief Complaint The Chief Complaint is: Kypho POV Problems Includes: Problems addressed during this encounter and other active Problems Current Visit Onset Date Resolved Date Provider Dannielle pearson Status Lower Back Pain 12/10/2021 Bishop Nava MD Act michele Plan of Treatment Fall Risk Assessment: This patient has been identified as a fall risk. Balance/gait along with postural blood pressure, vision and home fall hazards have been assessed. Medications have been reviewed, and recommendations made with regard to contributing factors for future falls. Plan of care: Consideration of vitamin D supplementation along with balance and strength training with consideration for formal physical therapy has been discussed with the patient. - Last Documented On 12/23/2021 10:12AM ; [facility], [facility] Patient was seen by myself Kartik Morales PA-C. Patient will follow up 2 weeks if she is not better we will repeat the MRI did give her the option of doing that today but she did not want to do that. Possibly some of this back pain this is related to the other degenerative changes that she has in her back - Last Documented On 12/23/2021 10:12AM ; [facility], [facility] Instructions to patient Lose weight Last Documented On 8:55AM ; [facility], [facility] Assessments Include
--- OUTSIDE RECORDS SUMMARY | 2023-03-30 21:04 | XMS_ITS | Clinical Summary ---
Author Name Unknown Address [address] [place] [address] Phone Organization [facility] , [facility] Address [address] [place] [address] Phone Care Team Providers Care Can Repairer Name Role Phone Elijah BUNN, Bishop Munoz Unavailable [phone] ZAYDANATRAMIRO Unavailable [phone] Reason for Visit and Chief Complaint The Chief Complaint is: Low back pain Problems Includes: Problems addressed during this encounter [...] with the patient. - Last Documented On 07/01/2022 6:03PM ; [facility], [facility] Patient was seen by myself and Dr. Elijah Morales PA-C. Patient will follow up post surgery plan is for an L1-L2 kyphoplasty. We will give her some [place] for pain. She has been educated on the benefits risks alternatives surgery and consents to proceed. - Last Documented On 07/01/2022 6:03PM ; [facility], [facility] Instructions to patient Lose weight Last Documented On 8:39AM ; [facility], [facility] Assessments Includes: Assessments from this encounter
--- OUTSIDE RECORDS SUMMARY | 2023-03-30 21:04 | XMS_ITS ---
Author Name Unknown Address [address] [place] [address] Phone Organization [facility] Address [address] [place] [address] Phone Care Team Providers Care Wax Ball Molder Name Role Phone Elijah BUNN, Bishop Munoz Unavailable [phone] BLAKENEREIDARAMIRO Unavailable [phone] Problems Includes: Active, inactive, and resolved Problems All Visits Onset Date Resolved Date Provider Condition S tatus Lower Back Pain 12/10/2021 Bishop Nava MD Act michele Plan of Treatment Instructions to patient Lose weight Last Documented On 2 8:55AM ; [facility], [facility] Lose weight Last Documented On 2 8:39AM ; [facility], [facility] Assessments Includes: Assessments for all patient encounters No Assessments Recorded Instructions Includes: Instructions for all patient encounters Instructions to patient Lose weight Last Documented On 2 8:55AM ; [facility], [facility] Lose weight Last Documented On 2 8:39AM ; [facility], [facility] Medical Equipment - Implanted Devices Includes: Current and historical Devices No Medical Equipment Recorded Medications Includes: Current and historical Medications Current Medications (continue as prescribed)
--- NOTE | 2023-03-30 21:07 | XR_ITS ---
PROCEDURE INFORMATION: Exam: XR Right Forearm Exam date and time: 03/30/2023 9:31 PM Age: 67 years old Clinical indication: Injury or trauma; Blunt trauma (contusions or hematomas); Arm, lower; Patient HX: Abrasion over right elbow due to fall yesterday and again tonight. TECHNIQUE: Imaging protocol: Radiologic exam of the right forearm. Views: 2 views. COMPARISON: No relevant prior studies available. FINDINGS: Bones/joints: No acute fracture or malalignment. No elbow joint effusion. Soft tissues: Normal. IMPRESSION: No acute osseous findings.
--- NOTE | 2023-03-30 21:07 | XR_ITS ---
PROCEDURE INFORMATION: Exam: XR Left Knee Exam date and time: 03/30/2023 9:31 PM Age: 67 years old Clinical indication: Injury or trauma; Blunt trauma; Prior surgery; Surgery date: 6+ months; Surgery type: Left knee replacement. Patient HX: Pain in left knee due to fall yesterday and again tonight. TECHNIQUE: Imaging protocol: Radiologic exam of the left knee. Views: 1 or 2 views. COMPARISON: CR XR KNEE LT 3V 10/27/2022 8:42 AM FINDINGS: Bones/joints: Postsurgical changes of total knee arthroplasty. Intact hardware. No acute fracture or malalignment. Patellar enthesopathy. No joint effusion. Soft tissues: Prepatellar soft tissue contusion. Soft tissue calcifications. IMPRESSION: Prepatellar soft tissue contusion. No acute osseous findings. Postsurgical changes of total knee arthroplasty without acute hardware complication.
--- NOTE | 2023-03-30 21:07 | XR_ITS ---
PROCEDURE INFORMATION: Exam: XR Right Knee Exam date and time: 03/30/2023 9:31 PM Age: 67 years old Clinical indication: Injury or trauma; Fall; Blunt trauma; Knee; Patient HX: Patient fell yesterday and again tonight. Abrasion over right patella. TECHNIQUE: Imaging protocol: Radiologic exam of the right knee. Views: 1 or 2 views. COMPARISON: CR XR KNEE RT 4V 10/16/2021 10:40 AM FINDINGS: Bones/joints: No acute fracture or malalignment. Tricompartment osteoarthritis. Patellar enthesopathy. Equivocal small joint effusion. Soft tissues: Soft tissue calcifications. IMPRESSION: Equivocal small joint effusion. No acute osseous findings.
--- NOTE | 2023-03-30 21:27 | PC.NURSE ---
pt returned from radiology
--- NOTE | 2023-03-30 22:04 | XR_ITS ---
PROCEDURE INFORMATION: Exam: XR Chest Exam date and time: 03/30/2023 10:29 PM Age: 67 years old Clinical indication: Shortness of breath; Additional info: SOA TECHNIQUE: Imaging protocol: Radiologic exam of the chest. Views: 1 view. COMPARISON: CR XR CHEST 2V 09/29/2022 1:43 PM FINDINGS: Tubes, catheters and devices: Cardiac loop recorder. Lungs: Mildly increased right lower lobe airspace opacities. Pleural spaces: Unremarkable. No pleural effusion. No pneumothorax. Heart/Mediastinum: Cardiomegaly. Bones/joints: Unremarkable. IMPRESSION: Mildly increased right lower lobe airspace opacities which may represent atelectasis or infection in the acute setting.
--- NOTE | 2023-03-30 22:32 | PC.NURSE ---
call returned from dr orta at
[2023-03-30 22:34] VITALS: PULSE 85; PULSE 90
[2023-03-30 22:47] LABS: Chloride 109 mmol/L (98-107); Sodium 139 mmol/L (136-145)
[2023-03-30 22:48] LABS: Potassium 3.8 mmoL/L (3.5-5.1)
[2023-03-30 22:50] LABS: Alanine Aminotransferase 42 U/L (12-78); Albumin Level 2.8 g/dl (3.5-5.0); Albumin/Globulin Ratio 0.8 (1.1-1.8); Alkaline Phosphatase 190 U/L (38-126); Anion Gap 6.8 mEq/L (5-15); Aspartate Amino Transferase 58 U/L (14-36); Bilirubin,Total 5.6 mg/dl (0.2-1.3); Blood Urea Nitrogen 18 mg/dl (7-17); Carbon Dioxide 27 mmol/L (22.0-30.0); Creatinine Clearance Estimated 74 mL/min (50-200); Estimated Glomerular Filt Rate 72 ml/min (>60); GFR (African American) 87 ML/MIN (>60); Globulin 3.4 g/dL (1.3-3.2); Total Protein,Serum 6.2 g/dl (6.3-8.2)
[2023-03-30 22:51] LABS: Calcium 8.5 mg/dl (8.4-10.2); Glucose 100 mg/dl (74-100)
[2023-03-31 00:44] VITALS: BP 118/63; PULSE 89; RESP 22; TEMP 36.6; O2SAT 98
[2023-03-31 00:44] LABS: Lipase 288 U/L (23-300)
[2023-03-31 00:51] LABS: Ammonia 31 umol/L (9-30)
[2023-03-31 00:52] LABS: Hemoglobin 11.1 g/dL (12.2-16.2); Red Blood Count 3.45 M/mm3 (4.20-5.40); White Blood Count 6.3 K/mm3 (4.8-10.8)
[2023-03-31 00:54] LABS: Basophils % 0.8 % (0.1-2.0); Eosinophils % 7.8 % (0.1-12.0); Lymphocytes % 23.9 % (10-50); Mean Corpuscular HGB Conc 30.1 g/dL (31.8-35.4); Mean Corpuscular Hemoglobin 32.2 pg (27.0-31.2); Monocytes % 15.2 % (1.7-9.3); Neutrophils % 52.3 % (37.0-80.0); Platelet Count 96 K/mm3 (142-424)
[2023-03-31 00:55] LABS: Basophils # 0.1 K/mm3 (0-0.2); Eosinophils # 0.5 K/mm3 (0.0-0.4); Lymphocytes # 1.5 K/mm3 (0.7-4.5); Neutrophils # 3.3 K/mm3 (1.8-7.8)
--- NOTE | 2023-03-31 16:12 | HMH.EDGENADL ---
Discharge Plan Disposition Patient Disposition: Home, Self-Care Prescriptions Prescriptions: No Action Xifaxan 550 mg tablet 550 mg PO BID rosuvastatin [Crestor] 5 mg tablet 5 mg PO DAILY furosemide [Lasix] 20 mg tablet 20 mg PO BID venlafaxine 75 mg capsule,extended release 24hr 75 mg PO DAILY lactulose 10 gram/15 mL solution 10 g PO BID spironolactone [Aldactone] 50 mg tablet 50 mg PO BID doxycycline hyclate 100 mg tablet 100 mg PO BID Qty: 28 0RF montelukast 10 MG tablet 10 mg PO PM sennosides-docusate sodium [Senna Plus] 8.6-50 mg tablet 1 tab PO DAILY Patient Comments: TAKE ONE TABLET BY MOUTH EVERY DAY olanzapine 5 mg tablet 5 mg PO HS omeprazole 40 mg capsule,delayed release(DR/EC) 40 mg PO DAILY Patient Comments: TAKE ONE CAPSULE BY MOUTH EVERY DAY potassium chloride 20 mEq tablet,ER particles/crystals 20 meq PO DAILY Patient Comments: TAKE ONE TABLET BY MOUTH EVERY DAY levothyroxine 50 mcg tablet 50 mcg PO DAILY bisoprolol fumarate 5 mg tablet 5 mg PO DAILY Qty: 30 0RF oxycodone 5 mg tablet 5 mg PO Q4H PRN (Reason: pain) Qty: 60 0RF Clinical Impressions Clinical Impression: Elbow pain, right, Knee pain Discharge ED Provider: Isaac Colon General Adult HPI General Chief complaint: Extremity Injury, Upper Stated complaint: AO10 fall bilateral knee pain Time Seen by Provider: 03/30/23 21:32 Mode of Arrival: Wheelchair Source of Information: Patient Limitations: No Limitations Description of Symptoms (Recalled from ER Triage Doc. by RN): Pt took a fall this evening at [employer] at approx 1900. Pt fell to both knees, and right forearm. Denies any LOC, fall was witnessed, no blood thinners. Skin tear to right forearm, abrasion to right knee and pain in left knee (hx of TKR in 10/17). Pt is wheezing, takes home nebs, daughter states this is normal for her. O2 97% History of Present Illness HPI narrative: The patient presents with a chief complaint of a recent fall resulting in arm pain and a subsequent fall causing knee pain. The patient has a history of a knee replacement on the affected knee. The patient reports that these falls are a new occurrence and have happened within the past couple of days. The patient denies any numbness or tingling in the extremities and has no history of diabetes. The patient does report occasional swelling in the feet and is currently on diuretics. The patient has a history of asthma and has been experiencing increased shortness of breath lately. The patient is currently using inhalers and asthma treatments at home. The patient denies any recent changes in medication, fevers, or head or neck injuries during the falls. The patient lives alone and has not identified any potential causes for the increased frequency of falls. Related Data Home Medications Medication Instructions Recorded Confirmed montelukast 10 mg tablet 10 mg PO PM allergies 11/14/17 10/27/22 rifaximin 550 mg tablet (Xifaxan) 550 mg PO BID cirrhosis 09/08/20 10/27/22 rosuvastatin 5 mg tablet (Crestor) 5 mg PO DAILY Cholesterol 09/08/20 10/27/22 furosemide 20 mg tablet (Lasix) 20 mg PO BID Fluid 06/12/21 10/27/22 lactulose 10 gram/15 mL oral 10 g PO BID STOMACH 06/12/21 10/27/22 solution venlafaxine 75 mg capsule,extended 75 mg PO DAILY Depression 06/12/21 10/27/22 release 24 hr spironolactone 50 mg tablet 50 mg PO BID Fluid 01/05/22 10/27/22 (Aldactone) levothyroxine 50 mcg tablet 50 mcg PO DAILY THYROID 10/05/22 10/27/22 olanzapine 5 mg tablet 5 mg PO HS MOOD 10/05/22 10/27/22 omeprazole 40 mg capsule,delayed 40 mg PO DAILY Acid reflux 10/05/22 10/27/22 release potassium chloride 20 mEq 20 meq PO DAILY Supplement 10/05/22 10/27/22 tablet,extended release(part/cryst) sennosides 8.6 mg-docusate sodium 1 tab PO DAILY constipation 10/05/22 10/27/22 50 mg tablet (Senna Plus) Previous Rx's
== END 2023-03-31 00:52 | disposition home or self-care (01) ==
PROVIDERS: Emergency Provider Emergency Medicine; PCP Family Medicine
DX: M25.561 Pain in right knee (principal); M25.562 Pain in left knee; S51.801A Unspecified open wound of right forearm, initial encounter; M25.521 Pain in right elbow; J45.909 Unspecified asthma, uncomplicated; K21.9 Gastro-esophageal reflux disease without esophagitis; K74.60 Unspecified cirrhosis of liver; W19.XXXA Unspecified fall, initial encounter
CPT/HCPCS: 71045; 73090; 73560; 80053; 82140; 83690; 85025; 96374; 99284

== ENCOUNTER → 2023-04-05 09:07 | Outpatient (CLI) | payer MEDICARE, SELFPAY ==
[2023-04-05 09:57] LABS: Basophils % 0.6 % (0.1-2.0); Eosinophils # 0.4 K/mm3 (0.0-0.4); Eosinophils % 7.3 % (0.1-12.0); Hematocrit 36.6 % (37.0-47.0); Hemoglobin 11.4 g/dL (12.2-16.2); Lymphocytes # 1.2 K/mm3 (0.7-4.5); Lymphocytes % 21.2 % (10-50); Mean Corpuscular HGB Conc 31.2 g/dL (31.8-35.4); Mean Corpuscular Hemoglobin 34.1 pg (27.0-31.2); Mean Corpuscular Volume 109.2 fl (81-99); Mean Platelet Volume 7.7 fl (7.4-10.4); Monocytes # 0.8 K/mm3 (0.1-1.0); Monocytes % 14.7 % (1.7-9.3); Neutrophils # 3.2 K/mm3 (1.8-7.8); Neutrophils % 56.2 % (37.0-80.0); Platelet Count 104 K/mm3 (142-424); Red Blood Count 3.35 M/mm3 (4.20-5.40); Red Cell Distribution Width 16.5 % (11.5-17.5); White Blood Count 5.7 K/mm3 (4.8-10.8)
[2023-04-05 10:02] LABS: INR 1.48 (0.9-1.1); Prothrombin Time 15.6 seconds (10.1-12.5)
[2023-04-05 10:14] LABS: Chloride 103 mmol/L (98-107); Potassium 4.2 mmoL/L (3.5-5.1); Sodium 139 mmol/L (136-145)
[2023-04-05 10:17] LABS: Alanine Aminotransferase 48 U/L (12-78); Albumin Level 2.8 g/dl (3.5-5.0); Albumin/Globulin Ratio 0.8 (1.1-1.8); Alkaline Phosphatase 222 U/L (38-126); Anion Gap 8.2 mEq/L (5-15); Aspartate Amino Transferase 59 U/L (14-36); Bilirubin,Total 6.3 mg/dl (0.2-1.3); Blood Urea Nitrogen 20 mg/dl (7-17); Carbon Dioxide 32 mmol/L (22.0-30.0); Estimated Glomerular Filt Rate 55 ml/min (>60); GFR (African American) 67 ML/MIN (>60); Globulin 3.4 g/dL (1.3-3.2); Total Protein,Serum 6.2 g/dl (6.3-8.2)
[2023-04-05 10:18] LABS: Calcium 8.8 mg/dl (8.4-10.2); Glucose 101 mg/dl (74-100)
== END ==
PROVIDERS: PCP Physician Assistant; Visit Provider Nurse Practitioner Acute Care
DX: R18.8 Other ascites (principal); K74.60 Unspecified cirrhosis of liver
CPT/HCPCS: 36415; 80053; 85025; 85610

== ENCOUNTER → 2023-04-18 11:33 | Outpatient (CLI) | payer MEDICARE, SELFPAY ==
--- NOTE | 2023-04-18 11:40 | XR_ITS ---
FINAL REPORT CLINICAL HISTORY: COUGH, soa FINDINGS: 2 views of the chest were obtained . The heart is normal in size. A loop recorder device is noted. The mediastinum is within normal limits. There is mild left base atelectasis or scarring. There is mild right bronchial wall thickening worrisome for bronchitis. There is no pneumothorax. Osseous structures are unremarkable. IMPRESSION: Mild left base atelectasis or scarring with mild right bronchial wall thickening worrisome for bronchitis. Reviewed, Interpreted and Dictated by Kenneth Bland III, MD Transcribed by Cele Chaves Authenticated and [facility]
== END ==
LOC: RAD 11:34
PROVIDERS: PCP Family Medicine; Visit Provider Nurse Practitioner Family
DX: R05.9 Cough, unspecified (principal)
CPT/HCPCS: 71046

== ENCOUNTER 2023-04-20 11:53 | Outpatient (CLI) | payer MEDICARE, SELFPAY ==
[2023-04-20] VITALS (11 sets, daily range): BP systolic 90–116; BP diastolic 37–70; PULSE 62–73; RESP 16–18; TEMP 36.2; O2SAT 94–98
--- NOTE | 2023-04-20 11:54 | CT_ITS ---
APPROVED REPORT Production Planner Scheduler: CLINICAL INDICATION Chest Pain TECHNIQUE Image Acquisition: A 128 slice MDCT scanner (LayerGlossa View) was used for data acquisition. A noncontrast coronary calcium scan was performed. A CT attenuation threshold of 130 Hounsfield units (HU) was used for the detection of calcium in contiguous voxels of 1 sq mm in area to be counted as individual lesions. Bolus tracking in the ascending aorta with a threshold of 180 HU was performed. Immediately afterwards, ECG synchronized cardiac CT was then performed from the cardiac base to apex using retrospective gating with ECG tube current modulation. A total of 85 mL of Isovue 370 mg/mL contrast medium was administered at 5 mL/sec followed by a saline flush using a biphasic injection protocol. A tube voltage of 120 KVp was used. The patient received the following medications prior to the cardiac CT. 100 mg of oral metoprolol 5 mg of intravenous metoprolol 0.4 mg of sublingual nitroglycerin The average heart rate at the time of acquisition was 66 bpm and regular. Image Reconstruction Transaxial images were reconstructed at 0.67 mm slide thickness. Data was reviewed interactively on an advanced workstation capable of 2 and 3-dimensional displays in all conventional reconstruction formats, including multiplanar reformations, maximum intensity projections, curved multiplanar reformations, and volume rendered reconstructions. When applicable, selected routine images describing the relevant coronary anatomy and pathology were saved and sent to PACS. Complications None Technical Quality Overall image quality was suboptima due to significant artifact. Coronary artery opacification was poor. Total DLP (Dose-Length Product) is 2936.3 mGy-cm. The reported value represents the total of one or more individual components during the CT acquisition of this date and at this time, and as such, the same value may appear in more than one CT report depending on the interpreting/reporting physicians. COMPARISON None FINDINGS CT Coronary Calcium Scoring LMA (Left Main Artery) = 0 LAD (Left Anterior Descending) = 20 LCX (Left Coronary Circumflex) = 12 RCA (Right Coronary Artery) = 0 Total Calcium Score = 32 using the AJ-130 method. The observed calcium score of 32 is at 65th percentile for subjects of the same age, sex, and race/ethnicity. The interpretation of the calcium heart score is based on the following continuum*: 0 = no calcified plaque detected (risk of coronary artery disease is very low ??? less than 5%) 1-10 = calcium detected in extremely minimal levels (risk of coronary diseases is still low ??? less than 10%) 11-100 = mild levels of plaque detected with certainty (mild or minimal narrowing of heart arteries is likely) 101-400 = definite,at least moderate levels of plaque detected (relatively high risk of a heart attack within 3-5 years) >401-999 = extensive levels of plaque detected (high risk of heart attack, high levels of vascular disease are present, high likelihood of at least one significant coronary narrowing) *The calcium heart score quantifies the burden of coronary calcification/plaque in the coronary arteries. The calcium heart score is not able to evaluate the presence or burden of non-calcified (i.e. soft) plaque. There is identifiable calcification in the ascending and descending aorta, but no calcification in the aortic valve, mitral annulus or mitral valve, pericardium, or myocardium. Coronary CT Angiography Coronaries have normal origin and proximal course. The coronary arterial system is right dominant. Note: Stenosis is reported as maximum percentage diameter stenosis. Quantitative Stenosis Grading: Left Main (LM): The left kristal
== END 2023-04-20 15:27 | disposition home or self-care (01) ==
PROVIDERS: PCP Physician Assistant; Visit Provider Physician Assistant
DX: K21.9 Gastro-esophageal reflux disease without esophagitis (principal); R94.31 Abnormal electrocardiogram [ECG] [EKG]; R06.09 Other forms of dyspnea; Z01.818 Encounter for other preprocedural examination; I49.1 Atrial premature depolarization; R07.89 Other chest pain
CPT/HCPCS: 75574; Q9967

== ENCOUNTER → 2023-05-03 13:47 | Outpatient (CLI) | payer MEDICARE, SELFPAY ==
--- NOTE | 2023-05-03 13:53 | MM_ITS ---
PROCEDURE INFORMATION: Exam: US Left Breast, Complete MG Bilateral Diagnostic Breast Tomosynthesis Exam date and time: 05/03/2023 1:48 PM Age: 67 years old Clinical indication: Left breast swelling TECHNIQUE: Imaging protocol: Complete ultrasound of all four quadrants of the left breast and the retroareolar regions, including ultrasound of the axilla when performed. Bilateral Diagnostic tomosynthesis and 2D mammography including computer-aided detection (CAD) when performed. Unilateral or bilateral exam. COMPARISON: 1. MG MM DIG SCREENING MAMM BI W/CAD 04/25/2020 9:46 AM 2. MG DMSB DIG MAMM-SCREEN YUSUF W/CAD 07/27/2016 2:32 PM FINDINGS: MAMMOGRAPHY: Breast composition: There are scattered areas of fibroglandular density. There is no stellate mass, architectural distortion or suspicious microcalcifications in either breast to suggest malignancy. Increased stromal markings on the left and fairly diffuse skin thickening on the left represent a significant interval change from prior examination. This is significantly less evident on the right. There is no underlying mass lesion on the left. No skin thickening or axillary adenopathy. ULTRASOUND: Sonographic images of the left breast including the retroareolar region, all 4 quadrants and the axilla do not demonstrate any solid or cystic masses. Diffuse skin thickening and subcutaneous breast edema is noted in all 4 quadrants. There is no underlying solid or cystic mass seen. No architectural distortion or acoustical shadowing. No skin thickening or axillary adenopathy. IMPRESSION: Unilateral breast edema without underlying mass lesion or adenopathy. This may be on the basis a fluid overloaded state as seen in congestive heart failure and those with kidney failure on dialysis. Clinical correlation is strongly needed. In the absence of a clinical etiology for breast edema, breast MRI should be performed to evaluate for any potential underlying parenchymal breast lesion ASSESSMENT: BI-RADS Category 0: Incomplete- Need Additional Imaging Evaluation and/or Prior Mammograms for Comparison
== END ==
PROVIDERS: PCP Family Medicine; Visit Provider Nurse Practitioner Family
DX: N63.20 Unspecified lump in the left breast, unspecified quadrant (principal); N64.59 Other signs and symptoms in breast
CPT/HCPCS: 76641; 77062; 77066; G0279

== ENCOUNTER → 2023-05-13 12:27 | Outpatient (CLI) | payer MEDICARE, SELFPAY ==
[2023-05-13 13:58] LABS: Blood Urea Nitrogen 23 mg/dl (7-17); Estimated Glomerular Filt Rate 32 ml/min (>60); GFR (African American) 39 ML/MIN (>60)
== END ==
PROVIDERS: Nurse Practitioner Family; PCP Physician Assistant; Visit Provider Physician Assistant
DX: R05.9 Cough, unspecified (principal)
CPT/HCPCS: 82565; 84520

== ENCOUNTER → 2023-05-24 13:55 | Outpatient (CLI) | payer MEDICARE, SELFPAY ==
--- NOTE | 2023-05-24 14:00 | CT_ITS ---
FINAL REPORT TECHNIQUE: After the administration of intravenous contrast, axial images through the chest were performed by computed tomography.This study was performed with techniques to keep radiation doses as low as reasonably achievable, (ALARA). Individualized dose reduction techniques using automated exposure control or adjustment of mA and/or kV according to the patient's size were employed. CLINICAL HISTORY: cough COMPARISON: None FINDINGS: There is no axillary adenopathy. There is no hilar or mediastinal adenopathy. The heart size is normal. There is no pericardial or pleural effusion. There is cirrhosis present in the upper abdomen with large perisplenic varices. No suspicious infiltrate or nodule identified. IMPRESSION: No acute pulmonary abnormality. Cirrhosis with changes of portal hypertension. Reviewed, Interpreted and Dictated by Neymar King MD Transcribed by Suha Cowart Authenticated and [facility]
== END ==
LOC: RAD 13:56
PROVIDERS: PCP Physician Assistant; Visit Provider Nurse Practitioner Family
DX: R05.9 Cough, unspecified (principal)
CPT/HCPCS: 71260; Q9967

== ENCOUNTER → 2023-06-02 16:46 | Outpatient (CLI) | payer MEDICARE, SELFPAY ==
[2023-06-02 17:08] LABS: Hematocrit 33.1 % (37.0-47.0); Hemoglobin 10.8 g/dL (12.2-16.2); Mean Corpuscular HGB Conc 32.8 g/dL (31.8-35.4); Mean Corpuscular Hemoglobin 35.1 pg (27.0-31.2); Mean Corpuscular Volume 107.2 fl (81-99); Platelet Count 99 K/mm3 (142-424); Red Blood Count 3.09 M/mm3 (4.20-5.40); Red Cell Distribution Width 17.9 % (11.5-17.5)
[2023-06-02 17:21] LABS: INR 1.48 (0.9-1.1); Prothrombin Time 15.6 seconds (10.1-12.5)
[2023-06-02 18:39] LABS: Alanine Aminotransferase 49 U/L (12-78); Albumin Level 2.9 g/dl (3.5-5.0); Albumin/Globulin Ratio 0.8 (1.1-1.8); Alkaline Phosphatase 240 U/L (38-126); Anion Gap 8.9 mEq/L (5-15); Aspartate Amino Transferase 66 U/L (14-36); Bilirubin,Total 4.9 mg/dl (0.2-1.3); Blood Urea Nitrogen 21 mg/dl (7-17); Carbon Dioxide 27 mmol/L (22.0-30.0); Chloride 102 mmol/L (98-107); Estimated Glomerular Filt Rate 50 ml/min (>60); GFR (African American) 60 ML/MIN (>60); Globulin 3.7 g/dL (1.3-3.2); Glucose 84 mg/dl (74-100); Potassium 3.9 mmoL/L (3.5-5.1); Sodium 134 mmol/L (136-145); Total Protein,Serum 6.6 g/dl (6.3-8.2)
== END ==
PROVIDERS: PCP Physician Assistant; Visit Provider Student in an Organized Health Care Education/Training Program
DX: K72.90 Hepatic failure, unspecified without coma (principal); R94.5 Abnormal results of liver function studies
CPT/HCPCS: 36415; 80053; 85014; 85018; 85048; 85049; 85610

== ENCOUNTER 2023-06-07 08:04 | Outpatient (CLI) | payer MEDICARE, SELFPAY | END 2023-06-07 08:15 | disposition home or self-care (01) | LOC: INF 08:05 | PROVIDERS: PCP Physician Assistant; Visit Provider Physician Assistant | DX: R74.8 Abnormal levels of other serum enzymes (principal); Z45.2 Encounter for adjustment and management of vascular access device | CPT/HCPCS: G0463 ==

== ENCOUNTER 2023-07-04 14:40 | Emergency (ER) | payer MEDICARE, SELFPAY ==
[2023-07-04] VITALS (8 sets, daily range): BP systolic 111–129; BP diastolic 48–77; PULSE 67–84; RESP 16–18; TEMP 36.6; O2SAT 95–98; BMI 33.5
--- NOTE | 2023-07-04 14:56 | HMH.EDGENADL ---
Discharge Plan Disposition Patient Disposition: Xfer Other Chief Complaint: Altered Mental Status Prescriptions Prescriptions: No Action Xifaxan 550 mg tablet 550 mg PO BID rosuvastatin [Crestor] 5 mg tablet 5 mg PO DAILY furosemide [Lasix] 20 mg tablet 20 mg PO BID venlafaxine 75 mg capsule,extended release 24hr 75 mg PO DAILY lactulose 10 gram/15 mL solution 10 g PO BID spironolactone [Aldactone] 50 mg tablet 50 mg PO BID doxycycline hyclate 100 mg tablet 100 mg PO BID Qty: 28 0RF montelukast 10 MG tablet 10 mg PO PM sennosides-docusate sodium [Senna Plus] 8.6-50 mg tablet 1 tab PO DAILY Patient Comments: TAKE ONE TABLET BY MOUTH EVERY DAY olanzapine 5 mg tablet 5 mg PO HS omeprazole 40 mg capsule,delayed release(DR/EC) 40 mg PO DAILY Patient Comments: TAKE ONE CAPSULE BY MOUTH EVERY DAY potassium chloride 20 mEq tablet,ER particles/crystals 20 meq PO DAILY Patient Comments: TAKE ONE TABLET BY MOUTH EVERY DAY levothyroxine 50 mcg tablet 50 mcg PO DAILY bisoprolol fumarate 5 mg tablet 5 mg PO DAILY Qty: 30 0RF oxycodone 5 mg tablet 5 mg PO Q4H PRN (Reason: pain) Qty: 60 0RF Referrals Follow up/Referrals: Pam Patel PA [Primary Care Provider] - See instructions Clinical Impressions Clinical Impression: Decompensated hepatic cirrhosis, Acute UTI Rhabdomyolysis Qualifiers: Rhabdomyolysis type: traumatic Encounter type: initial encounter Qualified Code(s): T79.6XXA - Traumatic ischemia of muscle, initial encounter Closed lumbar vertebral fracture Qualifiers: Encounter type: initial encounter Lumbar vertebra fracture level: L1 Fracture morphology: other fracture Qualified Code(s): S32.018A - Other fracture of first lumbar vertebra, initial encounter for closed fracture Instructions Patient Instructions: DI for Altered Mental Status Discharge ED Provider: Kennedy Hauser General Adult HPI General Chief complaint: Altered Mental Status Stated complaint: AO 07/04/23 fell back pain and confused Time Seen by Provider: 07/04/23 14:56 History of Present Illness HPI narrative: 67-year-old female, history of VILLALOBOS cirrhosis, currently being evaluated for transplant listing, presents with altered mental status, fall. Patient lives alone and was noted to be confused on the phone by family. When they went to visit her today, she reported that she had fallen and had been on the floor for unknown period of time. She is not acting normally per family. She has had no fevers. She reports low back pain but denies any other significant injuries related to the fall. She denies loss of consciousness. Family is concerned that she might have a UTI or that her cirrhosis is worse. They report that the patient was supposed admitted on Tuesday of this week at the [facility] for workup for transplant listing. Related Data Home Medications Medication Instructions Recorded Confirmed montelukast 10 mg tablet 10 mg PO PM allergies 11/14/17 04/05/23 rifaximin 550 mg tablet (Xifaxan) 550 mg PO BID cirrhosis 09/08/20 04/05/23 rosuvastatin 5 mg tablet (Crestor) 5 mg PO DAILY Cholesterol 09/08/20 04/05/23 furosemide 20 mg tablet (Lasix) 20 mg PO BID Fluid 06/12/21 04/05/23 lactulose 10 gram/15 mL oral 10 g PO BID STOMACH 06/12/21 04/05/23 solution venlafaxine 75 mg capsule,extended 75 mg PO DAILY Depression 06/12/21 04/05/23 release 24 hr spironolactone 50 mg tablet 50 mg PO BID Fluid 01/05/22 04/05/23 (Aldactone) levothyroxine 50 mcg tablet 50 mcg PO DAILY THYROID 10/05/22 04/05/23 olanzapine 5 mg tablet 5 mg PO HS MOOD 10/05/22 04/05/23 omeprazole 40 mg capsule,delayed 40 mg PO DAILY Acid reflux 10/05/22 04/05/23 release potassium chloride 20 mEq 20 meq PO DAILY Supplement 10/05/22 04/05/23 tablet,extended release(part/cryst) sennosides 8.6 mg-docusate sodium 1 tab PO DAILY constipation 10/05/22 04/05/23 50 mg tablet (Senna Plus) Previous Rx's Medication Instructions Recorded bisoprolol fumarate 5 mg tablet 5 mg PO DAILY #30 tabs 10/06/22 oxycodone 5 mg tablet 5 mg PO Q4H PRN pain #60 tabs 10/06/22 doxycycline hyclate 100 mg tablet 100 mg PO BID #28 tabs 10/27/22 Allergies Allergy/AdvReac Type Severity Reaction Status Date / Time Penicillins Allergy Mild Verified 04/20/23 12:53 Sulfa (Sulfonamide Allergy Unknown NA-NAUSEA/V Verified 04/20/23 12:53 Antibiotics) OMITING [SULFA (SULFONAMIDE ANTIBIOTICS)] [facility] Disclaimer: The information contained in this section may have been updated after the patient was seen, as this information can be updated by other users. Medical History Asthma Cirrhosis Encephalopathy, hepatic GERD (gastroesophageal reflux disease) History of atrial tachycardia History of depressed bipolar disorder History of depression History of tachycardia Hx of cardiac arrhythmia Hx of congestive heart failure Hx of edema Hx of thyroid disease Irregular heart rhythm Premature atrial contractions Surgical History History of bladder repair surgery History of cataract surgery History of failed repair of rotator cuff History of hernia repair History of hysterectomy History of lithotripsy History of sinus surgery No significant past surgical history Family History Other Family history of cancer Family history of depression Family history of hyperthyroidism Family history of hypothyroidism Family history of stroke Social History (Updated 04/20/23 @ 12:53 by Omid Rodriguez RN) Smoking Status: Never smoker second hand exposure: Yes alcohol intake: never substance use type: denies use current occupational status: retired and disabled Travel in the last 8 weeks: None household members: none housing: house lives independently: Yes marital status: single education level: high school current occupational exposures/hazards: No caffeine: Yes special semaj needs: No agree to transfusion: No do you feel safe at home: Yes victim of physical abuse: No victim of emotional abuse: No victim of sexual abuse: No would you like helpful sources: No ROS Obtained: Yes All systems reviewed & no additional complaints except as documented Physical Exam General General appearance: alert and in no apparent distress Head Head exam: atraumatic and normocephalic Eye Eye exam: Present normal appearance, PERRL and EOMI ENT ENT exam: Present normal oropharynx and normal external ear exam Neck Neck exam: Present normal inspection, full ROM and tenderness (Mild midline and paraspinal tenderness) Chest Chest inspection: Present normal inspection and symmetric chest wall rise; Absent tenderness Respiratory Respiratory exam: Present normal lung sounds bilaterally; Absent respiratory distress Cardiovascular Cardiovascular exam: Present regular rate and normal rhythm Abdominal Exam Abdominal exam: Present soft; Absent distention, tenderness or guarding Extremities Exam Extremities exam: Present normal inspection; Absent tenderness, edema or joint swelling Back Exam Back exam: Present normal inspection and tenderness (Thoracic and lumbar spinal tenderness midline) Neurological Exam Neurological exam: Present alert, oriented X3 and other (Mild asterixis); Absent motor sensory deficit Psychiatric Psychiatric exam: Present normal mood and flat affect Skin Skin exam: Present warm, dry and normal color Lymphatic Lymphatic Findings: no adenopathy Medical Decision Making Medical Records Medical records reviewed: Yes I reviewed the patient's medical records. Tommy Inquiry Pt receiving controlled substance: No Tommy was queried for this patient: No Vital Signs: 07/04/23 14:42 07/04/23 17:00 07/04/23 17:39 Temperature 97.8 F Temperature Source Oral Pulse Rate 74 76 Pulse Rate [Left Radial] 73 Respiratory Rate 16 Blood Pressure 112/48 L 129/71 Blood Pressure [Right Arm] 128/59 L Blood Pressure Mean [Right Arm] 82 02 Sat by Pulse Oximetry 98 96 97 Oxygen Delivery Method Room Air Room Air Lab Data Lab results reviewed: Yes I reviewed the patient's lab results. Lab Results 07/04/23 14:53: Urine Color Yellow, Urine Appearance Clear, Urine pH 5.5, Ur Specific [place] 1.025, Urine Protein Negative, Urine Glucose (UA) Negative, Urine Ketones Negative, Urine Blood 1+, Urine Nitrate Negative, Urine Bilirubin 1+ A, Urine Urobilinogen 1.0, Ur Leukocyte Esterase 1+ A, Urine RBC Occasional, Urine WBC 20-50, Ur Squamous Epith Cells 10-20, Urine Bacteria 1+ 07/04/23 15:12: WBC 6.6, RBC 3.39 L, Hgb 11.6 L, Hct 36.4 L, MCV 107.5 H, MCH 34.3 H, MCHC 31.9, RDW 16.7, Plt Count 89 L, MPV 8.7, Neut % (Auto) 65.7, Lymph % (Auto) 18.4, C[place]ay % (Auto) 11.6 H, Eos % (Auto) 3.7, Baso % (Auto) 0.6, Neut # (Auto) 4.3, Lymph # (Auto) 1.2, C[place] # (Auto) 0.8, Eos # (Auto) 0.2, Baso # (Auto) 0.0, PT 16.7 H, INR 1.59 H, Sodium 138, Potassium 3.9, Chloride 110 H, Carbon Dioxide 22, Anion Gap 9.9, BUN 18 H, Creatinine 1.20 H, Estimated GFR 45 L, Est GFR ( Amer) 54 L, Glucose 124 H, Calcium 8.9, Magnesium 1.5 L, Total Bilirubin 7.8 H, AST 75 H, ALT 61, Alkaline Phosphatase 204 H, Ammonia 42 H, Total Creatine Kinase 953 H*, NT-Pro-B Natriuret Pep 689 H, Total Protein 6.7, Albumin 2.9 L, Globulin 3.8 H, Albumin/Globulin Ratio 0.8 L, Lipase 250 07/04/23 15:38: SARS-CoV-2 (PCR) Not detected, Influenza A Untype (PCR) Not detected, Influenza Type B (PCR) Not detected 07/04/23 15:41: VBG pH 7.33, VBG pCO2 37.9, VBG pO2 62.6 H, VBG HCO3 19.4 L, VBG Total CO2 20.6 L, VBG O2 Saturation 88.3 H, VBG Base Excess -6.5 L 07/04/23 15:12 07/04/23 15:12 Orders (Tests/Meds): ED MEDICATIONS Generic Name Dose Route Start Last Admin Trade Name Freq PRN Reason Stop Dose Admin Lactated Ringer's 500 mls @ 999 mls/hr 07/04/23 18:15 07/04/23 18:19 Lactated Ringer's 500ml IV 07/04/23 18:45 999 mls/hr .Q31M ONE Administration Discontinued Medications Generic Name Dose Route Start Last Admin Trade Name Freq PRN Reason Stop Dose Admin Acetaminophen 1,000 mg 07/04/23 15:04 07/04/23 15:11 Acetaminophen 500mg Tab PO 07/04/23 15:05 1,000 mg ONCE ONE Administration Ceftriaxone Sodium 2 gm/ 100 mls @ 200 mls/hr 07/04/23 17:08 07/04/23 17:42 Sodium Chloride IV 07/04/23 17:37 200 mls/hr ONCE ONE Administration Lactated Ringer's 1,000 mls @ 999 mls/hr 07/04/23 18:00 07/04/23 18:15 Lactated Ringer's 1000 Ml Bag IV 07/04/23 18:30 Not Given .Q1H1M BETHANY Iopamidol 180 ml 07/04/23 16:32 07/04/23 16:45 Iopamidol-370 (76%);100ml Bottle IV 07/04/23 16:33 180 ml ONCE ONE Administration Morphine Sulfate 2 mg 07/04/23 17:26 07/04/23 17:32 Morphine 2mg/Ml Syringe IV 07/04/23 17:27 2 mg ONCE ONE Administration Morphine Sulfate 2 mg 07/04/23 17:43 07/04/23 17:50 Morphine 4mg/Ml Syringe IV 07/04/23 17:44 2 mg ONCE ONE Administration Sodium Chloride 10 ml 07/04/23 16:32 07/04/23 16:45 Sodium Chloride 0.9% 10ml Syr (Rad Only) IV 07/04/23 16:33 10 ml ONCE ONE Administration Sodium Chloride 50 ml 07/04/23 16:32 07/04/23 16:45 0.9 % Sodium Chloride 50 Ml Vial IV 07/04/23 16:33 50 ml ONCE ONE Administration ORDERS Category Date Time Status CT angio abdomen pelvis Stat Cat Scan 07/04/23 15:[address] angio head Stat Cat Scan 07/04/23 15:[address] angio neck Stat Cat Scan 07/04/23 15:[address] cervical spine wo con Stat Cat Scan 07/04/23 15:[address] head/brain wo con Stat Cat Scan 07/04/23 15:[address] lumbar spine wo con Stat Cat Scan 07/04/23 15:[address] thoracic spine wo con Stat Cat Scan 07/04/23 15:05 Completed CTA Chest [CT angio chest - dissection] Stat Cat Scan 07/04/23 15:04 Completed Ammonia Stat Lab 07/04/23 15:12 Completed BNP [Brain Natriuretic Peptide] Stat Lab 07/04/23 15:12 Completed CBC w/Auto Diff [Complete Blood Count Auto Diff] Stat Lab 07/04/23 15:12 Completed CK [Creatine Kinase] Stat Lab 07/04/23 15:12 Completed CMP [Comprehensive Metabolic Panel] Stat Lab 07/04/23 15:12 Completed INR [Prothrombin Time INR] Stat Lab 07/04/23 15:12 Completed Lipase Stat Lab 07/04/23 15:12 Completed Magnesium Stat Lab 07/04/23 15:12 Completed Rapid PCR Covid and Flu A/B Stat Lab 07/04/23 15:38 Completed UA [Urinalysis and Microscopic] Stat Lab 07/04/23 14:53 Completed Blood Culture Stat Micro 07/04/23 17:39 Received Urine Culture Stat Micro 07/04/23 14:53 Received VBG [Venous Blood Gas] Stat RT 07/04/23 15:41 Completed Medical Decision Narrative: 67-year-old female history of Villalobos cirrhosis being evaluated for transplant listing presents with altered mental status, fall from standing with unknown downtime, lumbar back pain. History was obtained via conversation with patient, family, chart review. On arrival, patient is afebrile, hemodynamically stable, alert and oriented but mildly confused about recent events, moving all extremities spontaneously. Full physical exam performed and significant for focal spinal tenderness worse in the lumbar region, mild asterixis noted Differential includes but is not limited to decompensated cirrhosis, pneumonia, UTI, electrolyte derangements, rhabdo, SBP intracranial trauma intrathoracic trauma intra-abdominal trauma spine trauma extremity trauma. Workup initiated including full trauma scans including CTA head neck chest abdomen pelvis, CT spines, CT head. No focal extremity tenderness requiring x-rays. Broad-spectrum labs ordered including CBC CMP lipase ammonia troponin UA blood cultures INR mag CK On re-evaluation, patient [remains afebrile, HD stable.] Laboratory workup independently interpreted by me and significant for urinalysis consistent with UTI. Initiated on 2 g ceftriaxone IV. CK elevated at 953, consistent with mild rhabdo. Patient initiated on gentle fluid resuscitation. Labs significant for INR 1.59, bilirubin 7.8, creatinine 1.2. MELD of 21. Imaging independently interpreted by me and significant for no evidence of intracranial bleeding. No evidence of intrathoracic trauma, intra-abdominal trauma. Spine films significant for L1 superior endplate fracture. See radiology read for full review of final results. Given patient history, exam and workup, patient's presentation most likely represents acute decompensated cirrhosis with altered mental status. Acute urinary tract infection. Acute L1 superior endplate fracture after fall from standing with associated mild rhabdomyolysis. Interact discussion had with [facility] transfer center and Dr. Berrios who accepted the patient in transfer to the [facility] Procedures Risk/Benefits of Procedure(s) Were Explained: Yes Critical Care Critical Care Time Critical Care Time: No
--- NOTE | 2023-07-04 14:57 | PC.NURSE ---
Dr. Hauser at for pt eval
--- NOTE | 2023-07-04 15:04 | CT_ITS ---
PROCEDURE INFORMATION: Exam: CTA Abdomen and Pelvis With Contrast Exam date and time: 07/04/2023 4:19 PM Age: 67 years old Clinical indication: Injury or trauma; Fall; Blunt trauma; Lower abdominal or back area; Bilateral; Patient HX: C/O back pain; Additional info: Fall chest pain TECHNIQUE: Imaging protocol: Computed tomographic angiography of the abdomen and pelvis with contrast. Exam focused on the arteries. 3D rendering (Not supervised by radiologist): MIP and/or 3D reconstructed images were created by the technologist. Radiation optimization: All CT scans at this facility use at least one of these dose optimization techniques: automated exposure control; mA and/or kV adjustment per patient size (includes targeted exams where dose is matched to clinical indication); or iterative reconstruction. Contrast material: ISOVUE; Contrast volume: 50 ml; Contrast route: INTRAVENOUS (IV); COMPARISON: CT ABDOMEN PELVIS W CON 06/19/2021 9:50 AM FINDINGS: Aorta: No aortic aneurysm. No aortic dissection. Celiac trunk and mesenteric arteries: No occlusion or significant stenosis. Renal arteries: No occlusion or significant stenosis. Right iliac arteries: No occlusion or significant stenosis. Left iliac arteries: No occlusion or significant stenosis. Liver: Hepatic steatosis nodularity of the hepatic contour. Findings compatible with cirrhosis and are unchanged. Gallbladder and bile ducts: Gallbladder contracted. Cholelithiasis Pancreas: Unremarkable. No mass. No ductal dilation. Spleen: Splenomegaly. Perisplenic, periesophageal and perigastric varices again demonstrated. Adrenal glands: Unremarkable. No mass. Kidneys and ureters: No hydronephrosis. Stomach and bowel: Colonic diverticulosis. No evidence of diverticulitis. Appendix: No evidence of appendicitis. Intraperitoneal space: Unremarkable. No free air. No significant fluid collection. Lymph nodes: Unremarkable. No enlarged lymph nodes. Urinary bladder: Unremarkable. No mass. Reproductive: Unremarkable as visualized. Bones/joints: L1-L2 kyphoplasty. Irregularity anterior superior aspect L1 findings compatible with fracture. Soft tissues: Fat filled inguinal hernias. IMPRESSION: 1. Findings compatible with cirrhosis. Associated findings consistent with portal hypertension as described above. 2. Irregularity anterior superior aspect L1 findings compatible with fracture.
--- NOTE | 2023-07-04 15:04 | CT_ITS ---
PROCEDURE INFORMATION: Exam: CTA Chest With Contrast Exam date and time: 07/04/2023 4:19 PM Age: 67 years old Clinical indication: Injury or trauma; Fall; Blunt trauma (contusions or hematomas); Additional info: Fall chest pain TECHNIQUE: Imaging protocol: Computed tomographic angiography of the chest with contrast. Exam focused on the arteries. 3D rendering (Not supervised by radiologist): MIP and/or 3D reconstructed images were created by the technologist. Radiation optimization: All CT scans at this facility use at least one of these dose optimization techniques: automated exposure control; mA and/or kV adjustment per patient size (includes targeted exams where dose is matched to clinical indication); or iterative reconstruction. Contrast material: ISOVUE; Contrast volume: 50 ml; Contrast route: INTRAVENOUS (IV); COMPARISON: CT CHEST W CON 05/24/2023 2:10 PM FINDINGS: Pulmonary arteries: There is suboptimal opacification of pulmonary arteries due to contrast bolus timing. Aorta: Regions of atherosclerotic vascular calcification involving the aortic arch. Trace coronary artery calcification Lungs: See Lymph nodes finding. Pleural spaces: Unremarkable. No pneumothorax. No pleural effusion. Heart: Unremarkable. No cardiomegaly. No pericardial effusion. Lymph nodes: Calcified mediastinal and hilar lymph nodes. Densely calcified granuloma right middle lobe Bones/joints: Unremarkable. No acute fracture. Soft tissues: Unremarkable. IMPRESSION: 1. No evidence of acute intrathoracic abnormality. 2. No large or central pulmonary embolus. Evaluation of the peripheral pulmonary arteries is limited.
--- NOTE | 2023-07-04 15:05 | CT_ITS ---
PROCEDURE INFORMATION: Exam: CT Cervical Spine Without Contrast Exam date and time: 07/04/2023 3:52 PM Age: 67 years old Clinical indication: Injury or trauma; Fall; Blunt trauma; Additional info: Fall neck pain TECHNIQUE: Imaging protocol: Computed tomography of the cervical spine without contrast. Radiation optimization: All CT scans at this facility use at least one of these dose optimization techniques: automated exposure control; mA and/or kV adjustment per patient size (includes targeted exams where dose is matched to clinical indication); or iterative reconstruction. COMPARISON: 1. CT HEAD/BRAIN WO CON 07/04/2023 3:[address] CHEST W CON 05/24/2023 2:10 PM 3. CR XR CHEST 2V 04/18/2023 11:43 AM FINDINGS: Bones/joints: There is straightening of the normal spinal curvature. The cervical spine shows relatively preserved alignment of the vertebral bodies with no evidence of acute fractures or dislocations. However, age-related degenerative changes are observed, including mild disc space narrowing and osteophyte formation at multiple levels. These findings are consistent with age related degenerative disease. Lungs: Lung apices are normal. Soft tissues: Unremarkable. Other findings: Please see the dedicated interpretation of the thorax for findings in that region. IMPRESSION: 1. Multilevel degenerative change without acute injury identified. 2. Please see the dedicated interpretation of the thorax for findings in that region.
--- NOTE | 2023-07-04 15:05 | CT_ITS ---
PROCEDURE INFORMATION: Exam: CT Lumbar Spine Without Contrast Exam date and time: 07/04/2023 3:56 PM Age: 67 years old Clinical indication: Injury or trauma; Fall; Blunt trauma (contusions or hematomas); Additional info: Fall severe lumbar back pain TECHNIQUE: Imaging protocol: Computed tomography of the lumbar spine without contrast. Radiation optimization: All CT scans at this facility use at least one of these dose optimization techniques: automated exposure control; mA and/or kV adjustment per patient size (includes targeted exams where dose is matched to clinical indication); or iterative reconstruction. COMPARISON: MR LUMBAR SPINE WO CON 12/02/2021 9:41 AM, lumbar spine x-ray four view 11/19/2021 FINDINGS: Bones/joints: Evidence of previous kyphoplasty L1 and L2. Generalized osteopenia. Fracture anterior superior L3 vertebral endplate. Soft tissues: Unremarkable. Other findings: Findings not definitively identified on the 2021 examination. IMPRESSION: Fracture anterior superior L3 vertebral endplate.
--- NOTE | 2023-07-04 15:05 | CT_ITS ---
PROCEDURE INFORMATION: Exam: CT Head Without Contrast Exam date and time: 07/04/2023 3:50 PM Age: 67 years old Clinical indication: Injury or trauma; Fall; Blunt trauma (contusions or hematomas); Additional info: Fall AMS TECHNIQUE: Imaging protocol: Computed tomography of the head without contrast. Radiation optimization: All CT scans at this facility use at least one of these dose optimization techniques: automated exposure control; mA and/or kV adjustment per patient size (includes targeted exams where dose is matched to clinical indication); or iterative reconstruction. COMPARISON: No relevant prior studies available. FINDINGS: Brain: The brain parenchyma appears unremarkable, with no signs of acute intracranial hemorrhage or significant mass effect. There is hypodensity in the subcortical and periventricular white matter which is technically nonspecific but most often related to chronic microvascular disease. Cerebral ventricles: Mild ventricular enlargement consistent with age-related cerebral atrophy is noted. Paranasal sinuses: Paranasal sinuses show age-appropriate mucosal thickening. Mastoid air cells: Visualized mastoid air cells are well aerated. Dental: There is dental amalgam which causes streak artifact and mildly limits evaluation of the oral cavity. Bones/joints: There are no skull fractures or bony lesions. Soft tissues: Unremarkable. IMPRESSION: Presumably age-related and chronic changes without acute intracranial abnormality.
--- NOTE | 2023-07-04 15:05 | CT_ITS ---
PROCEDURE INFORMATION: Exam: CT Thoracic Spine Without Contrast Exam date and time: 07/04/2023 3:54 PM Age: 67 years old Clinical indication: Injury or trauma; Fall; Blunt trauma (contusions or hematomas); Additional info: Fall back pain TECHNIQUE: Imaging protocol: Computed tomography of the thoracic spine without contrast. Radiation optimization: All CT scans at this facility use at least one of these dose optimization techniques: automated exposure control; mA and/or kV adjustment per patient size (includes targeted exams where dose is matched to clinical indication); or iterative reconstruction. COMPARISON: CT CERVICAL SPINE WO CON 07/04/2023 3:52 PM FINDINGS: Bones/joints: Evidence of previous kyphoplasty L1.Thoracic spondylosis with multilevel disc degeneration. Soft tissues: Unremarkable. Lungs: focal region of pleural thickening left lung apex. IMPRESSION: 1. No evidence of acute osseous injury. 2. Asymmetric pleural reactive changes as described above.
[2023-07-04 15:11] LABS: Microscopic, Urine URINE MICROSCOPIC (MICROSCOPIC)
[2023-07-04] MEDS: ACETAMINOPHEN 500MG TAB 1000 MG PO (15:11)
[2023-07-04 15:14] LABS: Appearance,Urine CLEAR (Clear); Blood, Urine 1+ (Negative); Color,Urine YELLOW (Yellow); Glucose,Urine (UA) Negative (Negative); Ketones,Urine Negative (Negative); Leukocyte Esterase,Urine 1+ (Negative); Nitrate,Urine Negative (Negative); PH,Urine 5.5 (5.0-8.5); Protein,Urine Negative (Negative); Specific Gravity, Urine 1.025 (1.005-1.030)
[2023-07-04 15:19] LABS: Bilirubin,Urine 1+ (Negative)
[2023-07-04 15:24] LABS: Basophils % 0.6 % (0.1-2.0); Eosinophils # 0.2 K/mm3 (0.0-0.4); Eosinophils % 3.7 % (0.1-12.0); Hematocrit 36.4 % (37.0-47.0); Hemoglobin 11.6 g/dL (12.2-16.2); Lymphocytes # 1.2 K/mm3 (0.7-4.5); Lymphocytes % 18.4 % (10-50); Mean Corpuscular HGB Conc 31.9 g/dL (31.8-35.4); Mean Corpuscular Hemoglobin 34.3 pg (27.0-31.2); Mean Corpuscular Volume 107.5 fl (81-99); Mean Platelet Volume 8.7 fl (7.4-10.4); Monocytes # 0.8 K/mm3 (0.1-1.0); Monocytes % 11.6 % (1.7-9.3); Neutrophils # 4.3 K/mm3 (1.8-7.8); Neutrophils % 65.7 % (37.0-80.0); Platelet Count 89 K/mm3 (142-424); Red Blood Count 3.39 M/mm3 (4.20-5.40); Red Cell Distribution Width 16.7 % (11.5-17.5); White Blood Count 6.6 K/mm3 (4.8-10.8)
[2023-07-04 15:25] LABS: Chloride 110 mmol/L (98-107)
[2023-07-04 15:26] LABS: Potassium 3.9 mmoL/L (3.5-5.1); Sodium 138 mmol/L (136-145)
[2023-07-04 15:28] LABS: Alanine Aminotransferase 61 U/L (12-78); Alkaline Phosphatase 204 U/L (38-126); Anion Gap 9.9 mEq/L (5-15); Aspartate Amino Transferase 75 U/L (14-36); Bilirubin,Total 7.8 mg/dl (0.2-1.3); Blood Urea Nitrogen 18 mg/dl (7-17); Carbon Dioxide 22 mmol/L (22.0-30.0); Estimated Glomerular Filt Rate 45 ml/min (>60); GFR (African American) 54 ML/MIN (>60)
[2023-07-04 15:29] LABS: Albumin Level 2.9 g/dl (3.5-5.0); Albumin/Globulin Ratio 0.8 (1.1-1.8); Calcium 8.9 mg/dl (8.4-10.2); Creatine Kinase 953 U/L (30-135); Globulin 3.8 g/dL (1.3-3.2); Glucose 124 mg/dl (74-100); INR 1.59 (0.9-1.1); Lipase 250 U/L (23-300); Magnesium 1.5 mg/dl (1.6-2.3); Prothrombin Time 16.7 seconds (10.1-12.5); Total Protein,Serum 6.7 g/dl (6.3-8.2)
[2023-07-04 15:30] LABS: Ammonia 42 umol/L (9-30)
[2023-07-04 15:35] LABS: Bacteria,Urine 1+ /lpf; RBC,Urine Occasional #/hpf (0-3); WBC,Urine 20-50 #/hpf (0-3)
[2023-07-04 15:38] LABS: NT Pro Brain Natriuretic Pep. 689 pg/mL (0-125)
[2023-07-04 15:42] LABS: Coronavirus 19, PCR Not Detected (NotDetected); Influenza A, PCR Not Detected (NotDetected); Influenza B, PCR Not Detected (NotDetected)
[2023-07-04 15:44] LABS: VBG Base Excess -6.5 mmol/L (-2.4-2.3); VBG HCO3 19.4 mmol/L (23-30); VBG Oxygen Saturation 88.3 % (50-70); VBG PCO2 37.9 mmol/L (35-51); VBG PH 7.33 mmol/L (7.31-7.41); VBG PO2 62.6 mmol/L (28-40); VBG Total CO2 20.6 mmol/L (23-27)
--- NOTE | 2023-07-04 16:16 | PC.NURSE ---
PT TO CT
--- NOTE | 2023-07-04 16:34 | PC.NURSE ---
Pt returned from RAD
[2023-07-04] MEDS: IOPAMIDOL-370 (76%);100ML BOTTLE 180 ML IV (16:45)
[2023-07-04] MEDS: SODIUM CHLORIDE 0.9% 10ML SYR (RAD ONLY) 10 ML IV (16:45)
[2023-07-04] MEDS: 0.9 % SODIUM CHLORIDE 50 ML VIAL IV (16:45)
--- NOTE | 2023-07-04 16:45 | HMH.ITSTN ---
holding off on CTA head/neck scans per .
[2023-07-04] MEDS: MORPHINE 2MG/ML SYRINGE 2 MG IV (17:32)
[2023-07-04] MEDS: CEFTRIAXONE SODIUM 2 GM in 0.9 % SODIUM CHLORIDE 100 ML IV (17:42)
[2023-07-04] MEDS: MORPHINE 4MG/ML SYRINGE 2 MG IV (17:50)
--- NOTE | 2023-07-04 17:50 | PC.NURSE ---
Called RAD to [facility] to [facility] and make disc
--- NOTE | 2023-07-04 17:55 | PC.NURSE ---
Spoke with Jose L at [facility] transfer center. Advised they will call back when the provider is available.
[2023-07-04] MEDS: RINGERS SOLUTION,LACTATED 500 ML 999 ML IV (18:19)
--- NOTE | 2023-07-04 19:29 | PC.NURSE ---
pt given small bottle of water OK'd by ED doctor
--- NOTE | 2023-07-04 20:53 | PC.NURSE ---
call to EMS, other buggy [place] yet
--- NOTE | 2023-07-04 20:54 | PC.NURSE ---
pt waiting for transfer, family @ bedside
--- NOTE | 2023-07-04 21:10 | PC.NURSE ---
Pt adjusted in bed, family at bedside, no needs at this time
--- NOTE | 2023-07-04 21:20 | PC.NURSE ---
PC from it service manager CC other buggy is back in [facility] and they will be here once they get back to the station
--- NOTE | 2023-07-07 11:52 | PC.NURSE ---
Addendum entered by Maggie Camejo RN 07/11/23 10:46: urine culture results faxed to charge nurse at [phone] Original Note: [id number] positive blood cultures received from mike in lab results called to nurse rebecca at 7th floor, and faxed
== END 2023-07-04 21:53 | disposition other institution (70) ==
PROVIDERS: Emergency Provider Emergency Medicine; PCP Physician Assistant
DX: T79.6XXA Traumatic ischemia of muscle, initial encounter (principal); S32.018A Other fracture of first lumbar vertebra, initial encounter for closed fracture; R41.82 Altered mental status, unspecified; K74.60 Unspecified cirrhosis of liver; N39.0 Urinary tract infection, site not specified; W19.XXXA Unspecified fall, initial encounter; J45.998 Other asthma
CPT/HCPCS: 70450; 71275; 72125; 72128; 72131; 74174; 80053; 81001; 82140; 82550; 82803; 83690; 83735; 83880; 85025; 85610; 87040; 87086; 87636; 96365; 96375; 99285; J0696; Q9967